=== PATIENT | male | born 1925 | race Caucasian/White ===

== ENCOUNTER 2016-09-30 09:58 | Inpatient (IN) | payer MEDICARE, OTHER ==
[2016-09-30] VITALS (18 sets, daily range): BP systolic 151–187; BP diastolic 67–123; PULSE 60–82; RESP 16–30; TEMP 98.4–98.8; O2SAT 93–100
[~2016-09-30] VITALS: Ht 182.9 cm; Wt 69.2 kg
[~2016-09-30 09:58] MED LIST: ASPI325T PO
[2016-09-30] MEDS ORDERED: CEFEPIME INJ 2,000 MG in SODIUM CHLORIDE 0.9% INJ 100 ML IV STA (10:16)
[2016-09-30] MEDS ORDERED: AZITHROMYCIN INJ 500 MG in SODIUM CHLOR 0.9% 250 ML INJ 250 ML IV STA (10:16)
--- NOTE | 2016-09-30 10:25 | PD ---
HPI Chief Complaint: General Weakness Time Seen by Provider: 10:16 Travel History International Travel<30 days: No Contact w/Intl Traveler<30days: No Traveled to known affect area: No History of Present Illness HPI 89-year-old male patient presents to the ER from home brought in by EMS, according to the family patient has been lethargic for 2-3 days, not urinating well, and family thinks he has subjective fevers. On evaluation, patient is not able to tell us why he is here. However, he admits to feeling weak and not well. Modifying Factors: None Associated Signs & Symptoms: General weakness, lethargy, fevers, not urinating well Risk Factors: Elderly PFSH Past Medical History Cancer: Yes (hx of prostate cancer) Diabetes: No Hepatitis: No Hiatal Hernia: No Hypertension: Yes Thyroid Disease: No Past Surgical History Eye Surgery: Yes (right eye cataract surgery) Pacemaker: No Other Surgery: Yes (BACK ) Social History Alcohol Use: No Tobacco Use: No Substance Use: No Allergies-Medications (Allergen,Severity, Reaction): Coded Allergies: No Known Allergies (Verified , 12/27/08) Reported Meds & Prescriptions Reported Meds & Active Scripts Active Reported Aspirin 325 Mg Tab (Aspirin) 325 Mg Tab 325 Mg PO EVERY OTHER DAY Review of Systems ROS Limitations: Altered Mental Status (lethargic, not reliable historian), Poor Historian Physical Exam Narrative GENERAL: Well-developed elderly white male patient who appears in mild respiratory distress, awake, but lethargic and mildly disoriented. Very hard of hearing. SKIN: Focused skin assessment warm/dry. HEAD: Atraumatic. Normocephalic. EYES: Pupils equal and round. No scleral icterus. No injection or drainage. ENT: No nasal bleeding or discharge. Mucous membranes pink and moist. NECK: Trachea midline. No JVD. CARDIOVASCULAR: Regular rate and rhythm. No murmur appreciated. RESPIRATORY: Notable accessory muscle use. With coarse breath sounds throughout bilaterally. GASTROINTESTINAL: Abdomen soft, non-tender, nondistended. Hepatic and splenic margins not palpable. MUSCULOSKELETAL: No obvious deformities. No clubbing. No cyanosis. No edema. NEUROLOGICAL: Awake and alert. No obvious cranial nerve deficits. Motor grossly within normal limits. Normal speech. PSYCHIATRIC: Lethargic, awake, mildly disoriented. Data Data Last Documented VS Vital Signs Date Time Temp Pulse Resp B/P Pulse Ox O2 Delivery O2 Flow Rate FiO2 09/30/16 11:00 94 Nasal Cannula 2 09/30/16 10:11 98.4 81 24 187/80 Orders Complete Blood Count With Diff (09/30/16 10:16) Comprehensive Metabolic Panel (09/30/16 10:16) Lactic Acid Sepsis Protocol (09/30/16 10:16) Magnesium (Mg) (09/30/16 10:16) Ckmb (Isoenzyme) Profile (09/30/16 10:16) Troponin I (09/30/16 10:16) Urinalysis - C+S If Indicated (09/30/16 10:16) Influenzae A/B Antigen (09/30/16 10:16) Blood Culture (09/30/16 10:16) Chest, Single Ap (09/30/16 10:16) Blood Glucose (09/30/16 10:16) Ecg Monitoring (09/30/16 10:16) Iv Access Insert/Monitor (09/30/16 10:16) Oximetry (09/30/16 10:16) Oxygen Administration (09/30/16 10:16) Cefepime Inj (Maxipime Inj) (09/30/16 10:16) Azithromycin Inj (Zithromax Inj) (09/30/16 10:16) B-Type Natriuretic Peptide (09/30/16 10:16) Cath For Specimen (09/30/16 10:16) Ct Brain W/O Iv Contrast(Rout) (09/30/16 10:25) Urine Culture (09/30/16 10:40) CKMB (09/30/16 10:20) CKMB% (09/30/16 10:20) Resp Bipap / Cpap Non Invas Vt (09/30/16 ) Furosemide Inj (Lasix Inj) (09/30/16 12:00) Admit Order (Ed Use Only) (09/30/16 12:01) Labs Laboratory Tests Test 09/30/16 09/30/16 10:20 10:40 White Blood Count 9.4 TH/MM3 Red Blood Count 3.01 MIL/MM3 Hemoglobin 10.3 GM/DL Hematocrit 30.1 % Mean Corpuscular Volume 100.0 FL Mean Corpuscular Hemoglobin 34.3 PG Mean Corpuscular Hemoglobin 34.3 % Concent Red Cell Distribution Width 14.6 % Platelet Count 107 TH/MM3 Mean Platelet Volume 9.9 FL Neutrophils (%) (Auto) 93.7 % Lymphocytes (%) (Auto) 1.8 % Monocytes (%) (Auto) 3.8 % Eosinophils (%) (Auto) 0.0 % Basophils (%) (Auto) 0.7 % Neutrophils # (Auto) 8.8 TH/MM3 Lymphocytes # (Auto) 0.2 TH/MM3 Monocytes # (Auto) 0.4 TH/MM3 Eosinophils # (Auto) 0.0 TH/MM3 Basophils # (Auto) 0.1 TH/MM3 CBC Comment DIFF FINAL Differential Comment Sodium Level 145 MEQ/L Potassium Level 4.6 MEQ/L Chloride Level 111 MEQ/L Carbon Dioxide Level 21.3 MEQ/L Anion Gap 13 MEQ/L Blood Urea Nitrogen 38 MG/DL Creatinine 1.82 MG/DL Estimat Glomerular Filtration 35 ML/MIN Rate Random Glucose 166 MG/DL Lactic Acid Level 4.0 mmol/L Calcium Level 8.2 MG/DL Magnesium Level 2.2 MG/DL Total Bilirubin 0.8 MG/DL Aspartate Amino Transf 42 U/L (AST/SGOT) Alanine Aminotransferase 32 U/L (ALT/SGPT) Alkaline Phosphatase 105 U/L Total Creatine Kinase 170 U/L Creatine Kinase MB 2.5 NG/ML Troponin I 0.70 NG/ML B-Type Natriuretic Peptide 2718 PG/ML Total Protein 6.9 GM/DL Albumin 3.0 GM/DL Urine Color YELLOW Urine Turbidity CLEAR Urine pH 6.0 Urine Specific [place] 1.020 Urine Protein 100 mg/dL Urine Glucose (UA) NEG mg/dL Urine Ketones NEG mg/dL Urine Occult Blood SMALL Urine Nitrite NEG Urine Bilirubin NEG Urine Urobilinogen LESS THAN 2.0 MG/DL Urine Leukocyte Esterase NEG Urine RBC 4 /hpf Urine WBC 1 /hpf Urine Squamous Epithelial <1 /hpf Cells Urine Bacteria RARE /hpf Urine Mucus FEW /lpf Microscopic Urinalysis Comment CATH-CULTURE IND MDM Medical Decision Making Medical Screen Exam Complete: Yes Emergency Medical Condition: Yes Medical Record Reviewed: Yes Interpretation(s) Laboratory Tests Test 09/30/16 09/30/16 10:20 10:40 Red Blood Count 3.01 MIL/MM3 (4.50-5.90) Hemoglobin 10.3 GM/DL (13.0-17.0) Hematocrit 30.1 % (39.0-51.0) Mean Corpuscular Hemoglobin 34.3 PG (27.0-34.0) Platelet Count 107 TH/MM3 (150-450) Neutrophils (%) (Auto) 93.7 % (16.0-70.0) Lymphocytes (%) (Auto) 1.8 % (9.0-44.0) Neutrophils # (Auto) 8.8 TH/MM3 (1.8-7.7) Lymphocytes # (Auto) 0.2 TH/MM3 (1.0-4.8) Chloride Level 111 MEQ/L (98-107) Blood Urea Nitrogen 38 MG/DL (7-18) Creatinine 1.82 MG/DL (0.60-1.30) Estimat Glomerular Filtration 35 ML/MIN (>89) Rate Random Glucose 166 MG/DL (74-106) Lactic Acid Level 4.0 mmol/L (0.4-2.0) Calcium Level 8.2 MG/DL (8.5-10.1) Aspartate Amino Transf 42 U/L (15-37) (AST/SGOT) Troponin I 0.70 NG/ML (0.02-0.05) B-Type Natriuretic Peptide 2718 PG/ML (0-100) Albumin 3.0 GM/DL (3.4-5.0) Urine Protein 100 mg/dL (NEG-TRACE) Urine Occult Blood SMALL (NEG) Urine RBC 4 /hpf (0-3) Urine Bacteria RARE /hpf (NONE) Urine Mucus FEW /lpf (OCC) Last [address] 09/30/16 1025 Signed Impressions: Service Date/Time: Friday, September 30, 2016 10:55 - CONCLUSION: Ventriculomegaly which may represent central volume loss however mild hydrocephalus cannot be excluded. Focal hypodensity within the left side of the jacklyn which may represent a small infarct. No other evidence of acute infarct, hemorrhage, mass or edema. Doroteo Pacheco MD Chest X-Ray 09/30/16 1016 Signed Impressions: Service Date/Time: Friday, September 30, 2016 10:23 - CONCLUSION: Cardiomegaly. Fullness of the central bronchopulmonary markings suggesting either pulmonary venous hypertension or bilateral perihilar infiltrates. Wilbur Ridley MD Differential Diagnosis Lethargic, general weakness, fevers, mild respiratory distresspneumonia versus CHF versus ACS versus dehydration versus electrolyte abnormalities versus sepsis Narrative Course Patient is a poor historian and fairly hard of hearing, history is also per family. Chest x-ray shows bilateral infiltrates concerning for underlying pulmonary edema versus pneumonia. Patient was initiated on IV antibiotics as precaution. His BNP is fairly elevated. Lasix was also given. IV fluids was held back secondary to patient's fairly elevated blood pressure and possible underlying pulmonary edema. Cultures have been done. His CAT scan of the brain shows atrophy and questionable small Jacklyn infarct. At this point, patient will need further evaluation and treatment. Case was discussed with [facility] resident service for admission to ICU for further treatment. BiPAP was also initiated due to notable respiratory distress. Will need to reevaluate for any further need of therapy. Patient's cardiac enzymes also returns elevated. No EKG ST elevation changes has been found. At this point, cardiac and 70 to be followed. I suspect underlying CHF as cause of elevations. Director Of Market Intelligence and Cardiology will also need to be a consult on this case. Case was discussed with Dr. Degroot who states that she would like a 2-D echo for further evaluation. Aggregate critical care time was 30 minutes. Time to perform other separately billable procedures was not included in the critical care time. My time did not include minutes spent treating any other patients simultaneously or on activities that did not directly contribute to the patient's treatment. The services I provided to this patient were to treat and/or prevent clinically significant deterioration that could result in: Worsening respiratory distress, worsening CHF, dysrhythmia, cardiopulmonary arrest, worsening sepsis, I provided critical care services requiring my management, as noted below: Chart data review, documentation time, medication orders and management, vital sign assessments/reviewing monitor data, ordering and reviewing lab tests, ordering and interpreting/reviewing x-rays and diagnostic studies, care of the patient and discussion of the patient with the admitting physicians. Sepsis Criteria Septic Shock Criteria: Lactic acid >=4 Diagnosis Primary Impression: SEVERE SEPSIS WITHOUT SEPTIC SHOCK Additional Impressions: CHF (congestive heart failure) Elevated troponin Admitting Information Admitting Physician Requests: Admit Stoney Watts MD Sep 30, 2016 10:25
--- NOTE | 2016-09-30 10:57 | RADRPT ---
EXAM DATE/TIME: 09/30/2016 10:23 [facility] COMPARISON: No previous studies available for comparison. INDICATIONS : Short of breath, congested. MEDICAL HISTORY : None. SURGICAL HISTORY : None. ENCOUNTER: Initial ACUITY: 1 day PAIN SCORE: Non-responsive. LOCATION: Bilateral chest FINDINGS: There is mild motion degradation of the image. There is indistinctness and fullness in the perihilar region and infrahilar region suggesting non-consolidative infiltrates. The heart is mildly enlarged . Both hemidiaphragms are well delineated. CONCLUSION: Cardiomegaly. Fullness of the central bronchopulmonary markings suggesting either pulmonary venous h ypertension or bilateral perihilar infiltrates. Wilbur Ridley MD on September 30, 2016 at 10:55 Board Certified Radiologist. This report was verified electronically.
[2016-09-30 11:05] LABS: AUTOMATED NEUTROPHIL # 8.8 TH/MM3 (1.8-7.7); BASOPHIL # 0.1 TH/MM3 (0-0.2); BASOPHIL % 0.7 % (0.0-2.0); HEMATOCRIT 30.1 % (39.0-51.0); HEMO FLAGS DIFF FINAL; LYMPH % 1.8 % (9.0-44.0); LYMPHOCYTE # 0.2 TH/MM3 (1.0-4.8); MEAN CORPUSCULAR HEMOGLOBIN 34.3 PG (27.0-34.0); MEAN CORPUSCULAR HGB CONC 34.3 % (32.0-36.0); MONO % 3.8 % (0.0-8.0); NEUT % 93.7 % (16.0-70.0); PLATELET COUNT 107 TH/MM3 (150-450); RED BLOOD COUNT 3.01 MIL/MM3 (4.50-5.90); RED CELL DISTRIBUTION WIDTH 14.6 % (11.6-17.2); WHITE BLOOD COUNT 9.4 TH/MM3 (4.0-11.0)
[2016-09-30 11:12] LABS: BACTERIA, URINE RARE /hpf; BLOOD, URINE SMALL (NEG); GLUCOSE,URINE NEG (NEG); KETONE, URINE NEG (NEG); MUCUS URINE FEW /lpf (OCC); NITRITE,URINE NEG (NEG); SQUAMOUS EPITHELIAL CELL URINE <1 /hpf (0-5); URINE COLOR YELLOW (YELLW/STRAW)
[2016-09-30 11:18] LABS: COMMENT (UR) CATH-CULTURE IND; CULTURE IF INDICATED CATH CULTURE IND
[2016-09-30 11:22] LABS: ANION GAP 13 MEQ/L (5-15); AST (GOT) 42 U/L (15-37); BICARBONATE 21.3 MEQ/L (21.0-32.0); BLOOD UREA NITROGEN 38 MG/DL (7-18); CHLORIDE 111 MEQ/L (98-107); GLOMERULAR FILTRATION RATE 35 ML/MIN (>89); MAGNESIUM 2.2 MG/DL (1.5-2.5); POTASSIUM 4.6 MEQ/L (3.5-5.1); SODIUM (NA) 145 MEQ/L (136-145)
[2016-09-30 11:27] LABS: ALKALINE PHOSPHATASE 105 U/L (45-117); ALT (GPT) 32 U/L (12-78); CREATINE KINASE 170 U/L (39-308); TOTAL BILIRUBIN ADULT 0.8 MG/DL (0.2-1.0)
--- NOTE | 2016-09-30 11:29 | RADRPT ---
EXAM DATE/TIME: 09/30/2016 10:55 [facility] COMPARISON: No previous studies available for comparison. INDICATIONS : Altered mental status. RADIATION DOSE: 42.65 CTDIvol (mGy) MEDICAL HISTORY : Carcinoma, prostate. SURGICAL HISTORY : ENCOUNTER: Initial ACUITY: 1 day PAIN SCALE: 1/10 LOCATION: TECHNIQUE: Multiple contiguous axial images were obtained of the head. Using automated exposure control and adjustment of the mA and/or kV according to patient size, radiation dose was kept as low as reasonably achievable to obtain optimal diagnostic quality images. FINDINGS: CEREBRUM: The ventricles are enlarged. No evidence of midline shift, mass lesion, hemorrhage or acute infarction. No extra-axial fluid collections are seen. POSTERIOR FOSSA: Mild hypodensity is identified within the left side of the jacklyn. The cerebellum and brainstem are otherwise unremarkable.. The 4th ventricle is midline. The cerebellopontine angle is unremarkable. EXTRACRANIAL: The visualized portion of the orbits is intact. SKULL: The calvaria is intact. No evidence of skull fracture. CONCLUSION: Ventriculomegaly which may represent central volume loss however mild hydrocephalus c annot be excluded. Focal hypodensity within the left side of the jacklyn which may represent a small infarct. No other evidence of acute infarct, hemorrhage, mass or edema. Doroteo Pacheco MD on September 30, 2016 at 11:24 Board Certified Radiologist. This report was verified electronically.
[2016-09-30 11:42] LABS: CKMB 2.5 NG/ML (0.5-3.6)
[2016-09-30] MEDS ORDERED: FUROSEMIDE 20 MG/2 ML VIAL IV PUSH ONE ×2 (12:00→14:00)
--- NOTE | 2016-09-30 12:49 | HHI.HP ---
[facility] Service Family Medicine Primary Care Physician Mendel Squires MD, PhD Admission Diagnosis severe sepsis/CHF new onset Diagnoses: International Travel<30 Days: No Contact w/Intl Traveler<30days: No Known Affected Area: No History of Present Illness 89 year old healthy male, with PMH of hypertension, presents with new onset lower extremity edema, dyspnea, generalized weakness, fevers, and altered mental status. His family (two daughters and son in law) provided most of the history. Symptoms started on Thursday. Initially he improved, but overnight he acutely worsened. He was having labored breathing. Normally he bikes 2 miles a day, but today was hardly able to stand up. Per the family, he was also confused. He is currently oriented X3 and answering questions appropriately. He also has fevers, with 102.5 being the highest. Currently he is afebrile. He is on BIPAP currently and per the family is about 25% better than at admission. He has no chest pain. He had 3 episodes of diarrhea overnight. (Channing Rosenberg MD R2) Review of Systems Constitutional: COMPLAINS OF: Fever, Chills, DENIES: Diaphoretic episodes, Fatigue, Weight gain, Weight loss, Change in appetite Endocrine: DENIES: Polydipsia, Polyuria, Polyphagia Eyes: DENIES: Eye inflammation, Double Vision Ears, nose, mouth, throat: DENIES: Throat pain, Running Nose, Odynophagia Respiratory: COMPLAINS OF: Cough, Shortness of breath, DENIES: Wheezing, Sputum production Cardiovascular: COMPLAINS OF: Dyspnea on Exertion, Lower Extremity Edema, Orthopnea, DENIES: Chest pain, Palpitations Gastrointestinal: DENIES: Abdominal pain, Bloody stools, Diarrhea, Nausea, Vomiting, Difficulty Swallowing Genitourinary: DENIES: Urgency, Hematuria, Dysuria Musculoskeletal: DENIES: Neck pain Integumentary: DENIES: Rash Hematologic/lymphatic: DENIES: Lymphadenopathy Immunologic/allergic: DENIES: Eczema Neurologic: DENIES: Headache, Localized weakness, Seizures, Speech Problems, Poor Balance Psychiatric: COMPLAINS OF: Confusion, DENIES: Anxiety, Depression (Channing Rosenberg MD R2) Past Family Social History Past Medical History Hypertension Healthy at baseline Dr. Squires is PCP Gets vitamin B12 shots Prostate cancer, in complete remission for 20 years Past Surgical History Prostate surgery: 20 years ago Hernia surgery 2 years ago Reported Medications Reported Meds & Active Scripts Active Reported Aspirin 81 mg daily (Channing Rosenberg MD R2) Allergies: Coded Allergies: No Known Allergies (Verified , 12/27/08) Family History Mother and father: uncertain No major illnesses reported Social History Quit smoking in his 50's, smoked for 30 years Alcohol use: none Drug use: none Independent, lives alone, very healthy Significant other in a skilled nursing Daughters and son and law help to take care of him (Channing Rosenberg MD R2) Physical Exam Vital Signs Vital Signs Date Time Temp Pulse Resp B/P Pulse Ox O2 Delivery O2 Flow Rate FiO2 09/30/16 12:20 98.8 79 26 156/123 94 BiPAP 09/30/16 11:00 94 Nasal Cannula 2 09/30/16 10:40 94 Nasal Cannula 2 09/30/16 10:40 94 Nasal Cannula 2 09/30/16 10:11 98.4 81 24 187/80 93 Physical Exam GENERAL: Sitting up in bed, on BIPAP, no acute distress SKIN: No rashes, no ulcers HEENT: Normocephalic, no nasal drainage, no pharyngeal erythema NECK: Trachea midline. No JVD or lymphadenopathy. Supple, nontender, no meningeal signs. CARDIOVASCULAR: Regular rate and rhythm without murmurs, gallops, or rubs. Pulses normal. JVD present. RESPIRATORY: Coarse breath sounds especially in lower lungs bilaterally. On BIPAP. 94% O2 saturation. GASTROINTESTINAL: Abdomen soft, non-tender, nondistended. No hepato-splenomegaly , or palpable masses. MUSCULOSKELETAL: Extremities without clubbing, cyanosis, or edema. No joint tenderness, effusion, or edema noted. No calf tenderness. NEUROLOGICAL: Awake and alert. Cranial nerves II through XII intact. Motor and sensory grossly within normal limits. Five out of 5 muscle strength in all muscle groups. Normal speech. Laboratory Laboratory Tests Test 09/30/16 09/30/16 10:20 10:40 White Blood Count 9.4 Red Blood Count 3.01 Hemoglobin 10.3 Hematocrit 30.1 Mean Corpuscular Volume 100.0 Mean Corpuscular Hemoglobin 34.3 Mean Corpuscular Hemoglobin 34.3 Concent Red Cell Distribution Width 14.6 Platelet Count 107 Mean Platelet Volume 9.9 Neutrophils (%) (Auto) 93.7 Lymphocytes (%) (Auto) 1.8 Monocytes (%) (Auto) 3.8 Eosinophils (%) (Auto) 0.0 Basophils (%) (Auto) 0.7 Neutrophils # (Auto) 8.8 Lymphocytes # (Auto) 0.2 Monocytes # (Auto) 0.4 Eosinophils # (Auto) 0.0 Basophils # (Auto) 0.1 CBC Comment DIFF FINAL Differential Comment Sodium Level 145 Potassium Level 4.6 Chloride Level 111 Carbon Dioxide Level 21.3 Anion Gap 13 Blood Urea Nitrogen 38 Creatinine 1.82 Estimat Glomerular Filtration 35 Rate Random Glucose 166 Lactic Acid Level 4.0 Calcium Level 8.2 Magnesium Level 2.2 Total Bilirubin 0.8 Aspartate Amino Transf 42 (AST/SGOT) Alanine Aminotransferase 32 (ALT/SGPT) Alkaline Phosphatase 105 Total Creatine Kinase 170 Creatine Kinase MB 2.5 Troponin I 0.70 B-Type Natriuretic Peptide 2718 Total Protein 6.9 Albumin 3.0 Urine Color YELLOW Urine Turbidity CLEAR Urine pH 6.0 Urine Specific [place] 1.020 Urine Protein 100 Urine Glucose (UA) NEG Urine Ketones NEG Urine Occult Blood SMALL Urine Nitrite NEG Urine Bilirubin NEG Urine Urobilinogen LESS THAN 2.0 Urine Leukocyte Esterase NEG Urine RBC 4 Urine WBC 1 Urine Squamous Epithelial <1 Cells Urine Bacteria RARE Urine Mucus FEW Microscopic Urinalysis Comment CATH-CULTURE IND Date/Time Procedure Status Source Growth 09/30/16 10:40 Urine Culture Received Urine Catheterized Urine Pending 09/30/16 10:25 Influenza Types A,B Antigen ([place]) - Final Complete Nasal Washing NEGATIVE FOR FLU A AND B ANTIGEN.... 09/30/16 10:25 Aerobic Blood Culture Received Blood Peripheral Pending 09/30/16 10:25 Anaerobic Blood Culture Received Blood Peripheral Pending (Channing Rosenberg MD R2) Result Diagram: 09/30/16 1020 09/30/16 1020 Imaging Last [address] 09/30/16 1025 Signed Impressions: Service Date/Time: Friday, September 30, 2016 10:55 - CONCLUSION: Ventriculomegaly which may represent central volume loss however mild hydrocephalus cannot be excluded. Focal hypodensity within the left side of the jacklyn which may represent a small infarct. No other evidence of acute infarct, hemorrhage, mass or edema. Doroteo Pacheco MD Chest X-Ray 09/30/16 1016 Signed Impressions: Service Date/Time: Friday, September 30, 2016 10:23 - CONCLUSION: Cardiomegaly. Fullness of the central bronchopulmonary markings suggesting either pulmonary venous hypertension or bilateral perihilar infiltrates. Wilbur Ridley MD (Channing Rosenberg MD R2) Septic Shock Reassessment Heart: Regular rate and rhythm Lungs: Course Skin: Warm Capillary Refill: <2 seconds (Channing Rosenberg MD R2) Assessment and Plan Assessment and Plan 89 year old with shortness of breath, lower extremity edema, generalized weakness, and altered mental status. Code Status FULL CODE Discussed Condition With Discussed with Dr. Odonnell, Dr. Mirlande Piedra, will discuss with light industrial supervisor ( Channing Rosenberg MD R2) Attending Attestation Patient seen and examined. Case reviewed and discussed with the resident team. Agree with plan of care as discussed with me and documented in the resident note. (Deena Calvo MD) Problem List: (1) Dyspnea Status: Resolved Plan: New onset dyspnea is this otherwise healthy elderly male. Also with lower extremity edema that is new in onset. DDx is wide, including pneumonia, PE , acute CHF, myocardial infarction, COPD. BNP significantly elevated to 2718. Initial troponin 0.7. X-ray showing cardiomegaly, pulmonary congestion/edema. No history of CHF, so the question is why he is in acute heart failure now. Wells criteria is 3, low risk for PE. Initial lactic acid elevated to 4.0, decreasing on BIPAP. White count normal, neutrophils elevated. Fever 102.5 at home, normal here. - Because of the complications with balancing fluid load in a patient with sepsis and acute fluid overload, we will consult critical care and place him in the ICU for closer monitoring. - Will need strict I's and O's and daily weights. - Will get a stat CTA to rule out a pulmonary embolus. - Trend troponin levels and EKG's. - DuoNeb treatments, continue if they are beneficial. - Lasix PRN for fluid overload, will start 40 mg IV bid. - Telemetry for heart monitoring - Aspirin, atorvastatin - Beta thanh, spironolactone if indicated before discharge - Cardiology on board for acute CHF - Will get ECHO for further evaluation. - Get ABG now. (2) Lower extremity edema Status: Acute Plan: See plan for dyspnea above (3) Pneumonia Status: Acute Plan: Possible pneumonia on x-ray, having fevers, neutrophilia. 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 - MRI when stable (5) Nutrition, metabolism, and development symptoms Status: Acute Plan: - Strict I's and O's - Gentle hydration balanced with diuresis in this patient with sepsis and acute CHF - Monitor electrolytes with fluid overload and diuresis - Diet NPO until speech evaluates due to questionable hypodensity on CT scan (6) No contraindication to deep vein thrombosis (DVT) prophylaxis Status: Acute Plan: Heparin for prophylaxis, will discuss with light industrial supervisor and network program manager whether we need heparin drip Bilateral SCD's (Channing Rosenberg MD R2) Physician Certification 2 Midnight Certification Type: Admission for Inpatient Services Order for Inpatient Services The services are ordered in accordance with Medicare regulations or non- Medicare payer requirements, as applicable. In the case of services not specified as inpatient-only, they are appropriately provided as inpatient services in accordance with the 2-midnight benchmark. Estimated LOS (days): 3 days is the estimated time the patient will need to remain in the hospital, assuming treatment plan goals are met and no additional complications. Post-Hospital Plan: Not yet determined (Channing Rosenberg MD R2) Problem Qualifiers (1) Dyspnea: Qualified Code: R06.02 - Shortness of breath (2) Lower extremity edema: Qualified Code: R60.0 - Bilateral edema of lower extremity (3) Pneumonia: Qualified Code: J18.1 - Pneumonia of lower lobe due to infectious organism, unspecified laterality Channing Rosenberg MD R2 Sep 30, 2016 12:49 Deena Calvo MD Oct 03, 2016 12:41
[2016-09-30 12:51] LABS: LACTIC ACID GHOST NOT REPORTABLE
[2016-09-30] MEDS ORDERED: SODIUM CHLORIDE 0.9% FLUSH 10 ML FLUSH IV FLUSH PRN (13:15)
[2016-09-30] MEDS ORDERED: NALOXONE HCL 0.4 MG/ML AMP IV PRN (13:15)
[2016-09-30] MEDS ORDERED: HEPARIN SODIUM - SQ 10,000 UNITS/ML VIAL SQ SCH (14:00)
[2016-09-30 14:21] LABS: BLOOD GAS BASE EXCESS -4.7 mmol/L (-2-2); BLOOD GAS CARBOXYHEMOGLOBIN 0.9 % (0-4); BLOOD GAS HCO3 19 mmol/L (22-26); BLOOD GAS METHEMOGLOBIN 0.5 % (0-2); BLOOD GAS O2 HGB SATURATION 98 % (90-100); BLOOD GAS OXYGEN CONTENT 13.6 Vol % (12.0-20.0); BLOOD GAS PCO2 27 mmHg (38-42); BLOOD GAS PO2 134 mmHG (61-120); BLOOD GAS TOTAL HGB 9.7 G/DL (12.0-16.0); CRITICAL VALUE NO; TEMP CORR TO 98.6
[2016-09-30 14:22] LABS: DRAW SITE RT RADIAL; FIO2 40 %; NUMBER OF ARTERIAL PUNCTURES 1; OXYGEN DEVICE BIPAP; STAT YES; VENT SETTINGS IPAP10/EPAP5
[2016-09-30] MEDS ORDERED: DEXTROSE 50% IN WATER 50 ML VIAL(D50) IV PUSH PRN (14:45)
[2016-09-30] MEDS ORDERED: RESP: ALBUTEROL 2.5 MG/IPRATROPIUM 0.5 MG NEB (PRN) NEB (14:45)
[2016-09-30] MEDS ORDERED: GLUCAGON 1 MG/ML VIAL OTHER PRN (14:45)
--- NOTE | 2016-09-30 14:51 | EC ---
Study Study Date:09/30/2016 STUDY CONCLUSIONS SUMMARY - Left ventricle: The cavity size was normal. Wall thickness was increased in a pattern of moderate LVH. Systolic function was severely reduced. The estimated ejection fraction was in the range of 25% to 30%. Diffuse hypokinesis. - Aortic valve: Valve area: 1.31cm^2(VTI). Valve area: 1.39cm^2 (Vmax). - Mitral valve: Mild to moderate regurgitation. - Left atrium: The atrium was mildly dilated. - Right ventricle: The cavity size was mildly to moderately dilated. Wall thickness was normal. - Right atrium: The atrium was moderately dilated. - Tricuspid valve: Mild-moderate regurgitation. - Pulmonary arteries: Systolic pressure was moderately increased. PA peak pressure: 41mm Hg (S). If LV function is below 40, please consider prescribing an ACEI or ARB or document rationale for non-use. PROCEDURE DATA STUDY STATUS: Elective. Procedure: Transthoracic echocardiography. Image quality was good. Scanning was performed from the parasternal, apical, and subcostal acoustic windows. Study completion: The patient tolerated the procedure well. Transthoracic echocardiography. M-mode, complete 2D, complete spectral Doppler, and color Doppler. Patient status: Inpatient. CARDIAC ANATOMY LEFT VENTRICLE: The cavity size was normal. Wall thickness was increased in a pattern of moderate LVH. Systolic function was severely reduced. The estimated ejection fraction was in the range of 25% to 30%. Diffuse hypokinesis. AORTIC VALVE: Trileaflet; normal thickness leaflets. Doppler: Transvalvular velocity was within the normal range. There was no stenosis. No regurgitation. Valve area: 1.31cm^2(VTI). Valve area: 1.39cm^2 (Vmax). Mean gradient: 9mm Hg (S). Peak gradient: 16mm Hg (S). AORTA: Aortic root: The aortic root was normal in size. MITRAL VALVE: Structurally normal valve. Doppler: Transvalvular velocity was within the normal range. There was no evidence for stenosis. Mild to moderate regurgitation. LEFT ATRIUM: The atrium was mildly dilated. RIGHT VENTRICLE: The cavity size was mildly to moderately dilated. Wall thickness was normal. PULMONIC VALVE: Doppler: Transvalvular velocity was within the normal range. There was no evidence for stenosis. No regurgitation. TRICUSPID VALVE: Structurally normal valve. Doppler: Transvalvular velocity was within the normal range. Mild-moderate regurgitation. PULMONARY ARTERY: The main pulmonary artery was normal-sized. Systolic pressure was moderately increased. RIGHT ATRIUM: The atrium was moderately dilated. PERICARDIUM: There was no pericardial effusion. SYSTEMIC VEINS: Inferior vena cava: The vessel was normal in size. BASIC MEASUREMENTS ADULT Normal Left ventricle LV internal dimension, ED, chordal level, 49.2 mm 43-52 PLAX LV internal dimension, ES, chordal level, *43.5 mm 23-38 PLAX Fractional shortening, chordal level, PLAX *12 % >29 LV posterior wall thickness, ED 13.4 mm IVS/LVPW ratio, ED 1.06 <1.3 Ventricular septum Septal thickness, ED 14.2 mm Aortic valve Leaflet separation 20 mm 15-26 Right ventricle RV internal dimension, ED, PLAX 28.5 mm 19-38 BASIC MEASUREMENTS ADULT Normal Aortic valve Leaflet separation 20 mm 15-26 Aorta Root diameter, ED 37 mm 20-37 Left atrium Anterior-posterior dimension, ES *49 mm 19-40 LA/aortic root ratio 1.32 DOPPLER MEASUREMENTS ADULT Normal Main pulmonary artery Pressure, S *41 mm Hg =30 Aortic valve Peak velocity, S 202 cm/s Mean velocity, S 140 cm/s VTI, S 39.1 cm Mean gradient, S 9 mm Hg Peak gradient, S 16 mm Hg Valve area, VTI 1.31 cm^2 Valve area, Vmax 1.39 cm^2 Tricuspid valve Regurgitant peak velocity 277 cm/s Peak RV-RA gradient, S 31 mm Hg Systemic veins Estimated CVP 10 mm Hg Right ventricle RV pressure, S *41 mm Hg <30 LEGEND: Mean values are shown as u=mean value. Asterisk (*) jansen values outside specified normal range. Prepared and signed by Floresita Degroot [id number]
[2016-09-30] MEDS: RESP: ALBUTEROL 2.5 MG/IPRATROPIUM 0.5 MG NEB (SCH) NEB ×3 (15:45→22:38)
[2016-09-30] MEDS: INSULIN NovoLIN REGULAR SUPPLEMENTAL SCALE SQ SCH ×2 (16:06→21:00)
--- NOTE | 2016-09-30 16:58 | RADRPT ---
EXAM DATE/TIME: 09/30/2016 16:23 This report includes an Addendum and supersedes previous reports for this exam. [facility] COMPARISON: CT BRAIN W/O CONTRAST, September 30, 2016, 10:55. INDICATIONS : CVA. Weakness. MEDICAL HISTORY : Carcinoma, prostate. SURGICAL HISTORY : Umbilical hernia repair. ENCOUNTER: Subsequent ACUITY: 1 day PAIN SCORE: 0/10 LOCATION: head. TECHNIQUE: Multiplanar, multisequence MRI of the brain was performed without contrast. FINDINGS: CEREBRUM: The ventricles, sulci, and basal cisterns are prominent, characteristic of mild central cortical atro phy.. No evidence of midline shift, mass lesion, hemorrhage or acute infarction. No extraaxial flui d collections are seen. The pituitary gland and suprasellar cistern are normal in configuration. WHITE MATTER: Scattered areas of T2 prolongation in the supratentorial white matter is nonspecific, probably ischem ic. POSTERIOR FOSSA: The cerebellum and brainstem are intact. The 4th ventricle is midline. Special attention is directe d to the left jacklyn; no focal signal abnormality seen. The cerebellopontine angle is unremarkable. T he cerebellar tonsils are normal in position. DIFFUSION IMAGING: No focal areas of restricted diffusion are seen. No evidence of acute infarction. EXTRACRANIAL: The visualized portions of the orbits and paranasal sinuses are unremarkable. CONCLUSION: 1. Mild central and cortical ischemic atrophy with associated white matter signal change. 2. Evidence of acute stroke. 3. No focal signal abnormality seen in the jacklyn. Wilbur Ridley MD on September 30, 2016 at 16:53 Board Certified Radiologist. This report was verified electronically. ADDENDUM: In the impression or conclusion above #2 should state that there is no evidence for acute infarction. Finding discussed with Dr. Odonnell. Daryn Thomas MD on September 30, 2016 at 19:40 Board Certified Radiologist. This report was verified electronically.
[2016-09-30] MEDS: FUROSEMIDE 40 MG/4 ML VIAL IV PUSH SCH (18:03)
--- NOTE | 2016-09-30 18:37 | MB ---
cc: SINGH CORBETT M.D. DATE OF CONSULTATION: 09/30/2016 REASON FOR CONSULTATION: DATE OF : 1925 HISTORY OF PRESENT ILLNESS: The patient is an 89-year-old male with remote history of prostate cancer, hypertension, who presented to [facility] ED with a 3-day history of the edema of lower extremities, associated with shortness of breath and generalized weakness. In addition the patient had fever with temperature of 101.5 per his daughters. The patient also was confused. He denies any chest pain, nausea, vomiting or abdominal pain. On arrival to the ED he was hypertensive with blood pressure 187/80 and due to his respiratory distress, he was placed on BiPap 10/5 with 40% FIO2. ABG was performed which showed a pH of 7.45, CO2 27, pAO2 134, bicarb 19, saturation of 98%. His chest x-ray showed cardiomegaly with pulmonary vascular congestion. His laboratory data significant for elevated BNP at 2,718 and troponin of 0.70. Also he had a lactic acid of 4.0, however, on repeat it trended down to 2.5. There is no evidence of any fever or leukocytosis on arrival. Due to altered mental status, CT scan of the brain was obtained which showed possible small infarct. No other evidence of any acute infarct, hemorrhage, mass effect or edema. In the ER he was given Lasix 20 mg IV push, cefepime and azithromycin. His nasal washing is negative for influenza types A and B antigen. PAST MEDICAL HISTORY: Significant for: 1. Hypertension. 2. Remote history of prostate cancer. PAST SURGICAL HISTORY: Previous hernia surgery. Prostate surgery. ALLERGIES NO KNOWN DRUG ALLERGIES. REPORTED MEDICATIONS: 1. Aspirin 2. Vitamins. SOCIAL HISTORY: Remote history of tobacco use. Nondrinker. FAMILY HISTORY Noncontributory REVIEW OF SYSTEMS As per HPI. The rest of the review of systems is unremarkable. PHYSICAL EXAMINATION The patient is an 89 year-old male sitting up in bed on BiPAP in no acute distress, appears comfortable. VITAL SIGNS: Afebrile, temperature 98.8, pulse of 79, blood pressure 161/77, saturation 99%. HEENT: Atraumatic, normocephalic, pupils equal, round, reactive to light and accommodation. Extraocular muscles intact. Conjunctivae pink. Nonicteric sclerae. Oral mucosa within normal. Neck: Supple. No JVD, adenopathy or thyromegaly. Trachea midline. Cardiovascular: Regular rate and rhythm. Normal S1-S2. No murmurs, rubs, or gallops noted. Pulmonary: Bilateral equal air entry. Few coarse breath sounds. Abdomen: Soft, nontender, no distension. Positive bowel sounds. Extremities: No cyanosis, clubbing, trace edema. Neuro: No focal sensory deficit. LABORATORY DATA Sodium 145, potassium 4.6, chloride 111, CO2 21, BUN 38, creatinine 1.82, glucose 166, lactic acid of 4.0 initially, then trended down to 2.5, troponin 0.70, total CK 170, MB 2.5, BNP 2718, AST 42, ALT 32, total bilirubin 0.8. WBC 9.4, hemoglobin 10, hematocrit 30, platelet count 107. Urinalysis showed 1 WBC, negative leukocyte esterase, negative nitrite. RADIOLOGIC STUDIES: CT scan of the brain showed focal hyperdensity within the left side of the jacklyn which may represent small infarct. No evidence of any acute infarct, hemorrhage or mass effect. Chest x-ray shows pulmonary vascular congestion and cardiomegaly. EKG showed no ST elevation. IMPRESSION 1. Acute hypoxemic respiratory insufficiency. 2. CHF decompensation. 3. 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 4. Mild elevated troponin. 5. Acute kidney injury. 6. Lactic acidemia trending down. 7. Anemia 8. Thrombocytopenia 9. Hypertension 10. Remote history of prostate cancer. RECOMMENDATIONS Monitor neuro status closely and avoid any sedatives. CT scan of the brain reviewed. The patient is for MRI of the brain without contrast. Continue to wean down oxygen and maintain saturation above 92%. Bronchodilators in the form of DuoNeb q4 plus q2, p.r.n. for shortness of breath. Continue noninvasive positive pressure ventilation for respiratory distress. Monitor heart rate and blood pressure closely and maintain MAP greater than 65 mmHg. Serial lactic acid monitoring. Echocardiogram was performed in the ER which showed LV dysfunction with EF of 25-30% and diffuse hypokinesis. The primary team discussed the case with Dr. Degroot from cardiology. Will continue with aspirin 81 mg daily, Lipitor 80 mg n.p.o., q.h.s. and diuretics. The patient was replaced on Lasix 40 mg IV b.i.d. Monitor cardiac enzymes with troponins. Monitor renal function I&O and avoid nephrotoxins. Continue with diuretics as stated above. Electrolyte replacement if needed. Keep n.p.o. for now until respiratory status improves. Continue with empiric antibiotics in the form of Rocephin and monitor for signs of infections which include fever and WBC. Follow up on blood and urine cultures. Nasal washing for influenza type A and B antigen is negative. Place on sliding scale insulin with Accu-Chek q. 6-hour for glycemic control. No indications for GI prophylaxis and DVT prophylaxis with SCDs and heparin subcu. The case was discussed with primary team. Further recommendations will be based on hospital course. MD PAWAN Thao/ROBIN /2:53 PM /5:37 PM
[2016-09-30] MEDS ORDERED: HEPARIN SODIUM - IV 10,000 UNITS/10 ML VIAL IV ONE (19:00)
[2016-09-30] MEDS ORDERED: HEPARIN-D5W INJ 250 ML IV SCH (19:00)
[2016-09-30] MEDS: SODIUM CHLORIDE 0.9% FLUSH 10 ML FLUSH IV FLUSH SCH (19:49)
[2016-09-30 20:05] LABS: LACTIC ACID GHOST NOT REPORTABLE
--- NOTE | 2016-09-30 20:51 | MB ---
cc: ES BELTRAN DATE OF CONSULTATION 09/30/16 REASON FOR CONSULTATION Elevated troponin and possible heart failure. HISTORY OF PRESENT ILLNESS Mr. Dowell is an 89-year-old male who is a poor historian. By the record, he does have a history of hypertension, hyperlipidemia and atrial fibrillation. The patient reports he was doing fine and was out bike riding until yesterday when he had a sudden progressive shortness of breath that precipitated his emergency room visit. He denies any chest pain. He has had some lower extremity edema. PAST MEDICAL HISTORY 1. Hypertension, 2. Hyperlipidemia, 3. Paroxysmal atrial fibrillation, 4. Prostate cancer status post XRT 5. Anemia, 6. Back ache with L4 back surgery. ALLERGIES No known drug allergies. MEDICATIONS Outpatient medications Aspirin. FAMILY HISTORY Noncontributory SOCIAL HISTORY The patient is a former smoker and does live independently. REVIEW OF SYSTEMS Except as mentioned in HPI all 12 systems are negative. PHYSICAL EXAMINATION VITAL SIGNS: 98.8, 79, 26, 156/23. His initial blood pressure was 187/80. GENERAL: He is in mild respiratory distress on the mask BiPAP LUNGS: Diffuse wheezing throughout. CARDIOVASCULAR: He has a normal S1 and S2. There is 2/6 systolic murmur. No rubs or gallops appreciated. ABDOMEN: Soft. EXTREMITIES: Trace amount of edema. CARDIOLOGY STUDIES Echocardiogram does show an EF of 25-30% with mild to moderate mitral regurgitation. LABORATORY FINDINGS Hemoglobin 10.3, creatinine of 1.82 with troponin of 0.70. BNP 2718. IMPRESSION 1. Acute systolic heart failure - the patient does not have any known history of previous cardiomyopathy. It is not clear if this is secondary to tachycardia related cardiomyopathy or versus infectious versus other. At this time, he does appear to have a cardiorenal syndrome as his creatinine is also elevated above his baseline. I do agree with diuresis. Beta blockade with be reasonable. 2. Anemia - this be managed by the primary team and is chronic 3. Paroxysmal atrial fibrillation - the patient certainly has a CHADS vasc score high enough to merit anticoagulation. His anemia, however, is concerning. At this time, I would continue him on his present medications. 4. Code status - the patient does remain full code. He essentially has multisystem failure and his overall prognosis is quite guarded. Cadence Son/ /5:27 PM /8:35 PM
[2016-09-30 21:30] LABS: HEMATOCRIT 30.2 % (39.0-51.0); MEAN CELL VOLUME 100.5 FL (80.0-100.0); MEAN CORPUSCULAR HEMOGLOBIN 34.5 PG (27.0-34.0); MEAN CORPUSCULAR HGB CONC 34.4 % (32.0-36.0); PLATELET COUNT 97 TH/MM3 (150-450); RED BLOOD COUNT 3.01 MIL/MM3 (4.50-5.90); RED CELL DISTRIBUTION WIDTH 14.3 % (11.6-17.2); WHITE BLOOD COUNT 9.2 TH/MM3 (4.0-11.0)
[2016-09-30 21:33] LABS: REVIEW FLAG FINAL
[2016-09-30 21:46] LABS: INTERNATIONAL NORMALIZED RATIO 1.2 RATIO; PROTHROMBIN TIME - PATIENT 13.4 SEC (9.8-11.6)
[2016-09-30 21:54] LABS: APTT (PATIENT) 73.2 SEC (24.3-30.1)
[2016-09-30] MEDS: ATORVASTATIN 80 MG TAB PO SCH (22:25)
--- NOTE | 2016-09-30 23:12 | EKG ---
Date Performed: 09/30/2016 Time Performed: 17:20:49 PTAGE: 89 years EKG: ATRIAL FIBRILLATION RIGHT BUNDLE BRANCH BLOCK LEFT ANTERIOR FASCICULAR BLOCK POSSIBLE LEFT VENTRICULAR HYPERTROPHY POSSIBLE ANTERIOR MYOCARDIAL INFARCTION ABNORMAL ECG PREVIOUS TRACING : 09/30/2016 12.05 Compared to prior tracing no significant change DOCTOR: Sj Weller Interpretating Date/Time 09/30/2016 23:11:26
--- NOTE | 2016-09-30 23:53 | EKG ---
Date Performed: 09/30/2016 Time Performed: 12:05:56 PTAGE: 89 years EKG: ATRIAL FIBRILLATION RIGHT BUNDLE BRANCH BLOCK LEFT ANTERIOR FASCICULAR BLOCK POSSIBLE LEFT VENTRICULAR HYPERTROPHY POSSIBLE ANTERIOR MYOCARDIAL INFARCTION ABNORMAL ECG INTERPRETATION BASED ON A DEFAULT AGE OF 40 YEARS PREVIOUS TRACING : 03/11/2012 10.26 Compared to the previous tracing, RBBB is new DOCTOR: Sj Weller Interpretating Date/Time 09/30/2016 23:51:42
[2016-10-01] VITALS (14 sets, daily range): BP systolic 146–200; BP diastolic 65–84; PULSE 53–97; RESP 20–24; TEMP 97.6–98.5; O2SAT 92–99
[2016-10-01 02:39] LABS: AUTOMATED NEUTROPHIL # 7.8 TH/MM3 (1.8-7.7); BASOPHIL % 0.2 % (0.0-2.0); HEMATOCRIT 29.3 % (39.0-51.0); LYMPH % 4.1 % (9.0-44.0); LYMPHOCYTE # 0.4 TH/MM3 (1.0-4.8); MEAN CELL VOLUME 95.5 FL (80.0-100.0); MEAN CORPUSCULAR HEMOGLOBIN 31.9 PG (27.0-34.0); MEAN CORPUSCULAR HGB CONC 33.4 % (32.0-36.0); MONO % 7.8 % (0.0-8.0); NEUT % 87.9 % (16.0-70.0); PLATELET COUNT 93 TH/MM3 (150-450); RED BLOOD COUNT 3.06 MIL/MM3 (4.50-5.90); RED CELL DISTRIBUTION WIDTH 14.3 % (11.6-17.2); WHITE BLOOD COUNT 8.9 TH/MM3 (4.0-11.0)
[2016-10-01 02:50] LABS: APTT (PATIENT) 69.7 SEC (24.3-30.1)
[2016-10-01 02:51] LABS: HEMO FLAGS DIFF FINAL
[2016-10-01] MEDS: INSULIN NovoLIN REGULAR SUPPLEMENTAL SCALE SQ SCH ×2 (03:00→09:00)
[2016-10-01] MEDS ORDERED: CHLORHEXIDINE GLUCONATE 2 % 1 PACK (2 CLOTHS)(extra cloths) TOPICAL PRN (03:00)
[2016-10-01 03:32] LABS: BICARBONATE 24.2 MEQ/L (21.0-32.0); MAGNESIUM 2.3 MG/DL (1.5-2.5); POTASSIUM 3.4 MEQ/L (3.5-5.1)
[2016-10-01] MEDS: RESP: ALBUTEROL 2.5 MG/IPRATROPIUM 0.5 MG NEB (SCH) NEB ×5 (04:00→19:53)
[2016-10-01 05:30] LABS: APTT (PATIENT) 67.5 SEC (24.3-30.1)
[2016-10-01] MEDS: CHLORHEXIDINE GLUCONATE 2 % 1 PACK (2 CLOTHS)(taper/protocol) TOPICAL SCH (06:06)
--- NOTE | 2016-10-01 06:29 | RADRPT ---
EXAM DATE/TIME: 10/01/2016 04:19 [facility] COMPARISON: CHEST SINGLE AP, September 30, 2016, 10:23. INDICATIONS : Shortness of breath. MEDICAL HISTORY : Carcinoma, prostate SURGICAL HISTORY : None. ENCOUNTER: Subsequent ACUITY: 2 days PAIN SCORE: Non-responsive. LOCATION: Bilateral chest FINDINGS: A single view of the chest demonstrates continued diffuse interstitial prominence with cardiomegaly. Marked atherosclerotic disease. No focal infiltrate. Osseous structures are intact. 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 This report was verified electronically.
--- NOTE | 2016-10-01 07:42 | PD.CARD.PN ---
Subjective Subjective Remarks Pt without complaints, requests d/c Objective Medications Current Medications Medications (Trade) Dose Ordered Sig/Moiz Route Start Time Stop Time Status Last Admin (NS Flush) 2 ml UNSCH PRN IV FLUSH 09/30/16 13:15 (NS Flush) 2 ml BID IV FLUSH 09/30/16 21:00 09/30/16 19:49 (Narcan Inj) 0.4 mg UNSCH PRN IV 09/30/16 13:15 (Lipitor) 80 mg HS PO 09/30/16 21:00 09/30/16 22:25 Aspirin 81 mg 81 mg DAILY PO 10/01/16 09:00 (Rocephin Inj/NS Inj) 100 ml @ 200 mls/hr Q24H IV 10/01/16 12:00 (Lasix Inj) 40 mg BID@09,18 IV PUSH 09/30/16 18:00 09/30/16 18:03 (D50w (Vial) Inj) 25 ml UNSCH PRN IV PUSH 09/30/16 14:45 (Glucagon Inj) 1 mg UNSCH PRN OTHER 09/30/16 14:45 Insulin Human Regular 1 1 Q6H SQ 09/30/16 15:00 09/30/16 16:06 (Heparin-D5W Inj) 250 ml @ 0 mls/hr TITRATE IV 09/30/16 19:00 09/30/16 19:45 Miscellaneous Information Patient in critical care unit? Ass... Q361D .XX 10/01/16 03:00 10/01/16 03:00 (Chlorhexidine 2% Cloth) 3 pack DAILY@04 TOPICAL 10/01/16 04:00 10/05/16 04:01 10/01/16 06:06 (Chlorhexidine 2% Cloth) 3 pack UNSCH PRN TOPICAL 10/01/16 03:00 10/06/16 02:54 Vital Signs / I&O Vital Signs Date Time Temp Pulse Resp B/P Pulse Ox O2 Delivery O2 Flow Rate FiO2 10/01/16 06:00 55 10/01/16 04:20 97 35 10/01/16 04:00 97.8 53 20 163/67 97 10/01/16 04:00 53 10/01/16 02:00 57 10/01/16 01:30 97 35 10/01/16 00:30 97.7 80 24 179/84 99 10/01/16 00:30 80 09/30/16 22:41 99 35 09/30/16 22:40 99 BiPAP 35 09/30/16 22:01 98 40 09/30/16 22:00 69 16 177/74 98 BiPAP 40 09/30/16 20:00 66 16 168/74 96 BiPAP 45 09/30/16 19:30 64 20 152/78 99 BiPAP 40 09/30/16 19:08 98 BiPAP 40 09/30/16 19:08 98 40 09/30/16 18:00 64 26 165/84 100 BiPAP 09/30/16 17:00 68 26 163/74 95 BiPAP 09/30/16 16:00 60 24 160/70 99 BiPAP 09/30/16 15:46 99 40 09/30/16 15:00 72 27 163/75 99 BiPAP 09/30/16 14:00 82 30 151/67 98 BiPAP 40 09/30/16 13:00 72 28 161/77 97 BiPAP 09/30/16 12:20 98.8 79 26 156/123 94 BiPAP 09/30/16 12:05 98 60 09/30/16 11:00 94 Nasal Cannula 2 09/30/16 10:40 94 Nasal Cannula 2 09/30/16 10:40 94 Nasal Cannula 2 09/30/16 10:11 98.4 81 24 187/80 93 I/O 09/30/16 09/30/16 09/30/16 10/01/16 10/01/16 10/01/16 07:00 15:00 23:00 07:00 15:00 23:00 Intake Total 79 ml Output Total 750 ml 1050 ml Balance -750 ml -971 ml Intake IV Total 79 ml Output Urine Total 750 ml 1050 ml Physical Exam GENERAL: Well developed, well nourished. No acute distress. HEENT: Jugular venous pressure is normal. CHEST: Lungs rhonchi in left base, otherwise clear to auscultation bilaterally. Unlabored respiratory effort. CARDIAC: Regular rate and rhythm without S3, S4, or murmur. ABDOMEN: Soft, nontender, no hepatosplenomegaly. Bowel sounds present. EXTREMITIES: No clubbing, cyanosis, or edema. Laboratory Laboratory Tests Test 09/30/16 09/30/16 09/30/16 09/30/16 10:20 10:40 12:45 14:11 White Blood Count 9.4 TH/MM3 Red Blood Count 3.01 MIL/MM3 Hemoglobin 10.3 GM/DL Hematocrit 30.1 % Mean Corpuscular Volume 100.0 FL Mean Corpuscular Hemoglobin 34.3 PG Mean Corpuscular Hemoglobin 34.3 % Concent Red Cell Distribution Width 14.6 % Platelet Count 107 TH/MM3 Mean Platelet Volume 9.9 FL Neutrophils (%) (Auto) 93.7 % Lymphocytes (%) (Auto) 1.8 % Monocytes (%) (Auto) 3.8 % Eosinophils (%) (Auto) 0.0 % Basophils (%) (Auto) 0.7 % Neutrophils # (Auto) 8.8 TH/MM3 Lymphocytes # (Auto) 0.2 TH/MM3 Monocytes # (Auto) 0.4 TH/MM3 Eosinophils # (Auto) 0.0 TH/MM3 Basophils # (Auto) 0.1 TH/MM3 CBC Comment DIFF FINAL Differential Comment Sodium Level 145 MEQ/L Potassium Level 4.6 MEQ/L Chloride Level 111 MEQ/L Carbon Dioxide Level 21.3 MEQ/L Anion Gap 13 MEQ/L Blood Urea Nitrogen 38 MG/DL Creatinine 1.82 MG/DL Estimat Glomerular Filtration 35 ML/MIN Rate Random Glucose 166 MG/DL Lactic Acid Level 4.0 mmol/L 2.5 mmol/L Calcium Level 8.2 MG/DL Magnesium Level 2.2 MG/DL Total Bilirubin 0.8 MG/DL Aspartate Amino Transf 42 U/L (AST/SGOT) Alanine Aminotransferase 32 U/L (ALT/SGPT) Alkaline Phosphatase 105 U/L Total Creatine Kinase 170 U/L Creatine Kinase MB 2.5 NG/ML Troponin I 0.70 NG/ML B-Type Natriuretic Peptide 2718 PG/ML Total Protein 6.9 GM/DL Albumin 3.0 GM/DL Urine Color YELLOW Urine Turbidity CLEAR Urine pH 6.0 Urine Specific [place] 1.020 Urine Protein 100 mg/dL Urine Glucose (UA) NEG mg/dL Urine Ketones NEG mg/dL Urine Occult Blood SMALL Urine Nitrite NEG Urine Bilirubin NEG Urine Urobilinogen LESS THAN 2.0 MG/DL Urine Leukocyte Esterase NEG Urine RBC 4 /hpf Urine WBC 1 /hpf Urine Squamous Epithelial <1 /hpf Cells Urine Bacteria RARE /hpf Urine Mucus FEW /lpf Microscopic Urinalysis Comment CATH-CULTURE IND Blood Gas Puncture Site RT RADIAL Blood Gas Patient Temperature 98.6 Blood Gas HCO3 19 mmol/L Blood Gas Base Excess -4.7 mmol/L Blood Gas Oxygen Saturation 98 % Arterial Blood pH 7.45 Arterial Blood Partial 27 mmHg Pressure CO2 Arterial Blood Partial 134 mmHG Pressure O2 Arterial Blood Oxygen Content 13.6 Vol % Arterial Blood 0.9 % Carboxyhemoglobin Arterial Blood Methemoglobin 0.5 % Blood Gas Hemoglobin 9.7 G/DL Oxygen Delivery Device BIPAP Blood Gas Ventilator Setting [id number] Blood Gas Inspired Oxygen 40 % Test 09/30/16 09/30/16 09/30/16 10/01/16 17:17 17:55 21:10 00:30 Troponin I 1.49 NG/ML 1.96 NG/ML Lactic Acid Level 2.7 mmol/L 2.6 mmol/L White Blood Count 9.2 TH/MM3 Red Blood Count 3.01 MIL/MM3 Hemoglobin 10.4 GM/DL Hematocrit 30.2 % Mean Corpuscular Volume 100.5 FL Mean Corpuscular Hemoglobin 34.5 PG Mean Corpuscular Hemoglobin 34.4 % Concent Red Cell Distribution Width 14.3 % Platelet Count 97 TH/MM3 Mean Platelet Volume 9.4 FL Prothrombin Time 13.4 SEC Prothromb Time International 1.2 RATIO Ratio Activated Partial 73.2 SEC Thromboplast Time Nasal Screen MRSA (PCR) NEGATIVE Test 10/01/16 10/01/16 02:29 04:26 White Blood Count 8.9 TH/MM3 Red Blood Count 3.06 MIL/MM3 Hemoglobin 9.8 GM/DL Hematocrit 29.3 % Mean Corpuscular Volume 95.5 FL Mean Corpuscular Hemoglobin 31.9 PG Mean Corpuscular Hemoglobin 33.4 % Concent Red Cell Distribution Width 14.3 % Platelet Count 93 TH/MM3 Mean Platelet Volume 9.6 FL Neutrophils (%) (Auto) 87.9 % Lymphocytes (%) (Auto) 4.1 % Monocytes (%) (Auto) 7.8 % Eosinophils (%) (Auto) 0.0 % Basophils (%) (Auto) 0.2 % Neutrophils # (Auto) 7.8 TH/MM3 Lymphocytes # (Auto) 0.4 TH/MM3 Monocytes # (Auto) 0.7 TH/MM3 Eosinophils # (Auto) 0.0 TH/MM3 Basophils # (Auto) 0.0 TH/MM3 CBC Comment DIFF FINAL Differential Comment Activated Partial 69.7 SEC 67.5 SEC Thromboplast Time Sodium Level 146 MEQ/L Potassium Level 3.4 MEQ/L Chloride Level 112 MEQ/L Carbon Dioxide Level 24.2 MEQ/L Anion Gap 10 MEQ/L Blood Urea Nitrogen 43 MG/DL Creatinine 1.77 MG/DL Estimat Glomerular Filtration 36 ML/MIN Rate Random Glucose 112 MG/DL Calcium Level 8.0 MG/DL Phosphorus Level 3.5 MG/DL Magnesium Level 2.3 MG/DL Assessment and Plan Assessment and Plan SHOB- likely multifactorial: pneumonia? -SHOB disproportionate to CHF and there was elevated lactic acid Acute CHF- improved, change to PO lasix Cardiomyopathy- HR too low for BB, KRISTIN low dose PAF- rate controlled, on heparin- fpc anticoagulation controversial with anemia and questionable compliance HTN- amlodipine CKD- chronic and near baseline Resp insufficiency- off biPAP, per [facility] Anemia- chronic, Floresita Degroot MD Oct 01, 2016 07:42
[2016-10-01] MEDS ORDERED: POTASSIUM CHLORIDE 10 MEQ CONTROLLED RELEASE TAB PO ONE ×2 (07:45→09:00)
--- NOTE | 2016-10-01 08:41 | HHI.HP ---
[facility] Service Family Medicine Primary Care Physician Mendel Squires MD, PhD Admission Diagnosis severe sepsis/CHF new onset Diagnoses: (1) Dyspnea Diagnosis: Principal (2) Lower extremity edema Diagnosis: Principal (3) Pneumonia Diagnosis: Principal (4) Pontine lesion Diagnosis: Principal (5) Nutrition, metabolism, and development symptoms Diagnosis: Principal (6) No contraindication to deep vein thrombosis (DVT) prophylaxis Diagnosis: Principal International Travel<30 Days: No Contact w/Intl Traveler<30days: No Known Affected Area: No History of Present Illness Mr Mott is an 89 year old male with PMH of hypertension and a fib who presented with new onset lower extremity edema, dyspnea, generalized weakness, fevers, and altered mental status. His family (two daughters and son in law) provided most of the history. Symptoms started on Thursday. Initially he improved, but overnight he acutely worsened. He was having labored breathing. Normally he bikes 5 miles a day, but on the day of admission was hardly able to stand up. Per the family, he was also confused. He had 3 episodes of diarrhea the night before he came in. He also had fevers, with 102.5 being the highest but none since admission. He is currently oriented X3 and answering questions appropriately. Currently he is afebrile. He was on BIPAP and was having respiratory distress initially but today is just on nasal canula and feel well. He has no chest pain. he has no complaints this am and reports he feels back to baseline. Review of Systems Other Constitutional: COMPLAINS OF: Fever, Chills, DENIES: Diaphoretic episodes, Fatigue, Weight gain, Weight loss, Change in appetite Endocrine: DENIES: Polydipsia, Polyuria, Polyphagia Eyes: DENIES: Eye inflammation, Double Vision Ears, nose, mouth, throat: DENIES: Throat pain, Running Nose, Odynophagia Respiratory: COMPLAINS OF: Cough, Shortness of breath, DENIES: Wheezing, Sputum production Cardiovascular: COMPLAINS OF: Dyspnea on Exertion, Lower Extremity Edema, Orthopnea, DENIES: Chest pain, Palpitations Gastrointestinal: DENIES: Abdominal pain, Bloody stools, Diarrhea, Nausea, Vomiting, Difficulty Swallowing Genitourinary: DENIES: Urgency, Hematuria, Dysuria Musculoskeletal: DENIES: Neck pain Integumentary: DENIES: Rash Hematologic/lymphatic: DENIES: Lymphadenopathy Immunologic/allergic: DENIES: Eczema Neurologic: DENIES: Headache, Localized weakness, Seizures, Speech Problems, Poor Balance Psychiatric: COMPLAINS OF: Confusion, DENIES: Anxiety, Depression Past Family Social History Past Medical History Hypertension per chart a fib and low H/H and thrombocytopenia chronically possibly myelodysplastic syndrome though he declines bone marrow biopsy Healthy at baseline per daughters he is actively riding his bike and managing his own affairs normally Dr. Squires is PCP Gets vitamin B12 shots Prostate cancer, in complete remission for 20 years Past Surgical History Prostate surgery: 20 years ago Hernia surgery 2 years ago Allergies: Coded Allergies: No Known Allergies (Verified , 12/27/08) Family History Mother and father: uncertain No major illnesses reported Social History Quit smoking in his 50's, smoked for 30 years Alcohol use: none Drug use: none Independent, lives alone, very healthy for his years per daughters who live nearby Significant other in a prison Daughters and son and law help to take care of him Physical Exam Vital Signs Vital Signs Date Time Temp Pulse Resp B/P Pulse Ox O2 Delivery O2 Flow Rate FiO2 10/01/16 08:19 97 Nasal Cannula 4.00 10/01/16 06:00 55 10/01/16 04:20 97 35 10/01/16 04:00 97.8 53 20 163/67 97 10/01/16 04:00 53 10/01/16 02:00 57 10/01/16 01:30 97 35 10/01/16 00:30 97.7 80 24 179/84 99 10/01/16 00:30 80 09/30/16 22:41 99 35 09/30/16 22:40 99 BiPAP 35 09/30/16 22:01 98 40 09/30/16 22:00 69 16 177/74 98 BiPAP 40 09/30/16 20:00 66 16 168/74 96 BiPAP 45 09/30/16 19:30 64 20 152/78 99 BiPAP 40 09/30/16 19:08 98 BiPAP 40 09/30/16 19:08 98 40 09/30/16 18:00 64 26 165/84 100 BiPAP 09/30/16 17:00 68 26 163/74 95 BiPAP 09/30/16 16:00 60 24 160/70 99 BiPAP 09/30/16 15:46 99 40 09/30/16 15:00 72 27 163/75 99 BiPAP 09/30/16 14:00 82 30 151/67 98 BiPAP 40 09/30/16 13:00 72 28 161/77 97 BiPAP 09/30/16 12:20 98.8 79 26 156/123 94 BiPAP 09/30/16 12:05 98 60 09/30/16 11:00 94 Nasal Cannula 2 09/30/16 10:40 94 Nasal Cannula 2 09/30/16 10:40 94 Nasal Cannula 2 09/30/16 10:11 98.4 81 24 187/80 93 Physical Exam GENERAL: thin almost frail elderly gentleman sitting up in bed, on nasal canula , no acute distress SKIN: No rashes, no ulcers HEENT: Normocephalic, no nasal drainage, no pharyngeal erythema NECK: Trachea midline. No JVD or lymphadenopathy. Supple, nontender, no meningeal signs. CARDIOVASCULAR: Regular rate and rhythm without murmurs, gallops, or rubs. Pulses normal. JVD present. RESPIRATORY: Coarse breath sounds especially in lower lungs bilaterally initially but clear today with a few basilar rales. On nasal canula, no problems today GASTROINTESTINAL: Abdomen soft, non-tender, nondistended. No hepato-splenomegaly , or palpable masses. MUSCULOSKELETAL: Extremities without clubbing, cyanosis, or edema, had slight edema on admission. No joint tenderness, effusion, or edema noted today. No calf tenderness. NEUROLOGICAL: Awake and alert. Cranial nerves II through XII intact. Motor and sensory grossly within normal limits. Five out of 5 muscle strength in all muscle groups. Normal speech. Laboratory Laboratory Tests Test 09/30/16 09/30/16 09/30/16 09/30/16 10:20 10:40 12:45 14:11 White Blood Count 9.4 Red Blood Count 3.01 Hemoglobin 10.3 Hematocrit 30.1 Mean Corpuscular Volume 100.0 Mean Corpuscular Hemoglobin 34.3 Mean Corpuscular Hemoglobin 34.3 Concent Red Cell Distribution Width 14.6 Platelet Count 107 Mean Platelet Volume 9.9 Neutrophils (%) (Auto) 93.7 Lymphocytes (%) (Auto) 1.8 Monocytes (%) (Auto) 3.8 Eosinophils (%) (Auto) 0.0 Basophils (%) (Auto) 0.7 Neutrophils # (Auto) 8.8 Lymphocytes # (Auto) 0.2 Monocytes # (Auto) 0.4 Eosinophils # (Auto) 0.0 Basophils # (Auto) 0.1 CBC Comment DIFF FINAL Differential Comment Sodium Level 145 Potassium Level 4.6 Chloride Level 111 Carbon Dioxide Level 21.3 Anion Gap 13 Blood Urea Nitrogen 38 Creatinine 1.82 Estimat Glomerular Filtration 35 Rate Random Glucose 166 Lactic Acid Level 4.0 2.5 Calcium Level 8.2 Magnesium Level 2.2 Total Bilirubin 0.8 Aspartate Amino Transf 42 (AST/SGOT) Alanine Aminotransferase 32 (ALT/SGPT) Alkaline Phosphatase 105 Total Creatine Kinase 170 Creatine Kinase MB 2.5 Troponin I 0.70 B-Type Natriuretic Peptide 2718 Total Protein 6.9 Albumin 3.0 Urine Color YELLOW Urine Turbidity CLEAR Urine pH 6.0 Urine Specific [place] 1.020 Urine Protein 100 Urine Glucose (UA) NEG Urine Ketones NEG Urine Occult Blood SMALL Urine Nitrite NEG Urine Bilirubin NEG Urine Urobilinogen LESS THAN 2.0 Urine Leukocyte Esterase NEG Urine RBC 4 Urine WBC 1 Urine Squamous Epithelial <1 Cells Urine Bacteria RARE Urine Mucus FEW Microscopic Urinalysis Comment CATH-CULTURE IND Blood Gas Puncture Site RT RADIAL Blood Gas Patient Temperature 98.6 Blood Gas HCO3 19 Blood Gas Base Excess -4.7 Blood Gas Oxygen Saturation 98 Arterial Blood pH 7.45 Arterial Blood Partial 27 Pressure CO2 Arterial Blood Partial 134 Pressure O2 Arterial Blood Oxygen Content 13.6 Arterial Blood 0.9 Carboxyhemoglobin Arterial Blood Methemoglobin 0.5 Blood Gas Hemoglobin 9.7 Oxygen Delivery Device BIPAP Blood Gas Ventilator Setting IPAP10/EPAP5 Blood Gas Inspired Oxygen 40 Test 09/30/16 09/30/16 09/30/16 10/01/16 17:17 17:55 21:10 00:30 Troponin I 1.49 1.96 Lactic Acid Level 2.7 2.6 White Blood Count 9.2 Red Blood Count 3.01 Hemoglobin 10.4 Hematocrit 30.2 Mean Corpuscular Volume 100.5 Mean Corpuscular Hemoglobin 34.5 Mean Corpuscular Hemoglobin 34.4 Concent Red Cell Distribution Width 14.3 Platelet Count 97 Mean Platelet Volume 9.4 Prothrombin Time 13.4 Prothromb Time International 1.2 Ratio Activated Partial 73.2 Thromboplast Time Nasal Screen MRSA (PCR) NEGATIVE Test 10/01/16 10/01/16 02:29 04:26 White Blood Count 8.9 Red Blood Count 3.06 Hemoglobin 9.8 Hematocrit 29.3 Mean Corpuscular Volume 95.5 Mean Corpuscular Hemoglobin 31.9 Mean Corpuscular Hemoglobin 33.4 Concent Red Cell Distribution Width 14.3 Platelet Count 93 Mean Platelet Volume 9.6 Neutrophils (%) (Auto) 87.9 Lymphocytes (%) (Auto) 4.1 Monocytes (%) (Auto) 7.8 Eosinophils (%) (Auto) 0.0 Basophils (%) (Auto) 0.2 Neutrophils # (Auto) 7.8 Lymphocytes # (Auto) 0.4 Monocytes # (Auto) 0.7 Eosinophils # (Auto) 0.0 Basophils # (Auto) 0.0 CBC Comment DIFF FINAL Differential Comment Activated Partial 69.7 67.5 Thromboplast Time Sodium Level 146 Potassium Level 3.4 Chloride Level 112 Carbon Dioxide Level 24.2 Anion Gap 10 Blood Urea Nitrogen 43 Creatinine 1.77 Estimat Glomerular Filtration 36 Rate Random Glucose 112 Calcium Level 8.0 Phosphorus Level 3.5 Magnesium Level 2.3 Date/Time Procedure Status Source Growth 09/30/16 10:40 Urine Culture Received Urine Catheterized Urine Pending 09/30/16 10:25 Influenza Types A,B Antigen (NICHOLE) - Final Complete Nasal Washing NEGATIVE FOR FLU A AND B ANTIGEN.... 09/30/16 10:25 Aerobic Blood Culture Received Blood Peripheral Pending 09/30/16 10:25 Anaerobic Blood Culture Received Blood Peripheral Pending Result Diagram: 10/01/16 0229 10/01/16 0229 Imaging Last [address] 09/30/16 1025 Signed Impressions: Service Date/Time: Friday, September 30, 2016 10:55 - CONCLUSION: Ventriculomegaly which may represent central volume loss however mild hydrocephalus cannot be excluded. Focal hypodensity within the left side of the jacklyn which may represent a small infarct. No other evidence of acute infarct, hemorrhage, mass or edema. Doroteo Pacheco MD Chest X-Ray 09/30/16 1016 Signed Impressions: Service Date/Time: Friday, September 30, 2016 10:23 - CONCLUSION: Cardiomegaly. Fullness of the central bronchopulmonary markings suggesting either pulmonary venous hypertension or bilateral perihilar infiltrates. Wilbur Ridley MD Assessment and Plan Assessment and Plan 89 year old with shortness of breath, lower extremity edema, generalized weakness, and altered mental status. Problem List: (1) Dyspnea Status: Acute Plan: New onset dyspnea is this otherwise healthy elderly male. Also with lower extremity edema that is new in onset. DDx is wide, including pneumonia, PE , acute CHF, myocardial infarction, COPD. BNP significantly elevated to 2718. Initial troponin 0.7. X-ray showing cardiomegaly, pulmonary congestion/edema. No history of CHF, so the question is why he is in acute heart failure now. Wells criteria is 3, low risk for PE. Initial lactic acid elevated to 4.0, decreasing on BIPAP. White count normal, neutrophils elevated. Fever 102.5 at home, normal here. - Because of the complications with balancing fluid load in a patient with sepsis and acute fluid overload, we consulted critical care and placed him in the ICU for closer monitoring. Thankfully he is better today and may be ready to be transferred out - Will need strict I's and O's and daily weights. - Trended troponin levels and EKG's. - DuoNeb treatments, continue if they are beneficial. - Lasix PRN for fluid overload, will start 40 mg IV bid. - Telemetry for heart monitoring - Aspirin, atorvastatin - Beta thanh, spironolactone if indicated before discharge - Cardiology on board for acute CHF - Will get ECHO for further evaluation. -ABG (2) Pneumonia Status: Acute Plan: Possible pneumonia on x-ray, having fevers, neutrophilia. He could have fluid overload more than Pneumonia with his elevated BNP - Continue Cefepime and Azithromycin (3) A-fib Status: Chronic Plan: On discussions with pt with daughters in his room, explained that he had a fib probably on and off for some time. Pt discussed being on blood thinners in the past and that he had a colonoscopy and endoscopy to be sure he was not bleeding so he doesn't want stronger blood thinners than aspirin. Discussed that he has an increased risk of CVA with a fib but he wants to just continue aspirin. (4) Lower extremity edema Status: Acute Plan: See plan for dyspnea above (5) Nutrition, metabolism, and development symptoms Status: Acute Plan: - Strict I's and O's - Gentle hydration balanced with diuresis in this patient with sepsis and acute CHF, will heplock iv - Monitor electrolytes with fluid overload and diuresis - Diet regular (6) No contraindication to deep vein thrombosis (DVT) prophylaxis Status: Acute Plan: Heparin for prophylaxis Bilateral SCD's (7) Thrombocytopenia Status: Chronic Plan: probably myelodysplastic syndrome but pt refuses bone marrow biopsy, asymptomatic (8) Anemia Status: Chronic Plan: see thrombocytopenia (9) Pontine lesion Status: Acute Plan: 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 In the case of services not specified as inpatient-only, they are appropriately provided as inpatient services in accordance with the 2-midnight benchmark. Estimated LOS (days): 3 3 days is the estimated time the patient will need to remain in the hospital, assuming treatment plan goals are met and no additional complications. Post-Hospital Plan: Not yet determined Problem Qualifiers (1) Dyspnea: Qualified Code: R06.02 - Shortness of breath (2) Lower extremity edema: Qualified Code: R60.0 - Bilateral edema of lower extremity (3) Pneumonia: Qualified Code: J18.1 - Pneumonia of lower lobe due to infectious organism, unspecified laterality (4) A-fib: Qualified Code: I48.0 - Paroxysmal atrial fibrillation (5) Anemia: Qualified Code: D64.9 - Anemia, unspecified type Deena Calvo MD Oct 01, 2016 08:41
[2016-10-01] MEDS ORDERED: amLODIPine BESYLATE 5 MG TAB PO SCH (09:00)
[2016-10-01] MEDS ORDERED: CARVEDILOL 3.125 MG TAB PO SCH (09:00)
--- NOTE | 2016-10-01 09:01 | HHI.CCPN ---
Subjective Remarks/Hospital Course The patient is an 89-year-old male with remote history of prostate cancer, hypertension, who presented to [facility] ED with a 3-day history of the edema of lower extremities, associated with shortness of breath and generalized weakness. In addition the patient had fever with temperature of 101.5 per his daughters. The patient also was confused. He denies any chest pain, nausea, vomiting or abdominal pain. On arrival to the ED he was hypertensive with blood pressure 187/80 and due to his respiratory distress, he was placed on BiPap 10/5 with 40% FIO2. ABG was performed which showed a pH of 7.45, CO2 27, pAO2 134, bicarb 19, saturation of 98%. His chest x-ray showed cardiomegaly with pulmonary vascular congestion. His laboratory data significant for elevated BNP at 2,718 and troponin of 0.70. Also he had a lactic acid of 4.0, however, on repeat it trended down to 2.5. There is no evidence of any fever or leukocytosis on arrival. Due to altered mental status, CT scan of the brain was obtained which showed possible small infarct. No other evidence of any acute infarct, hemorrhage, mass effect or edema. In the ER he was given Lasix 20 mg IV push, cefepime and azithromycin. His nasal washing is negative for influenza types A and B antigen. 10/01 Patient is off BIPAP and is on 4L oxygen with good sats. Afebrile. Objective Vital Signs Date Time Temp Pulse Resp B/P Pulse Ox O2 Delivery O2 Flow Rate FiO2 10/01/16 08:19 97 Nasal Cannula 4.00 10/01/16 06:00 55 10/01/16 04:20 35 10/01/16 04:00 97.8 20 163/67 Intake and Output 09/30/16 09/30/16 10/01/16 08:00 16:00 00:00 Output Total 750 ml Balance -750 ml Result Diagram: 10/01/16 0229 10/01/16 0229 Other Results Laboratory Tests Test 09/30/16 09/30/16 09/30/16 09/30/16 10:20 10:40 12:45 14:11 White Blood Count 9.4 TH/MM3 Red Blood Count 3.01 MIL/MM3 Hemoglobin 10.3 GM/DL Hematocrit 30.1 % Mean Corpuscular Volume 100.0 FL Mean Corpuscular Hemoglobin 34.3 PG Mean Corpuscular Hemoglobin 34.3 % Concent Red Cell Distribution Width 14.6 % Platelet Count 107 TH/MM3 Mean Platelet Volume 9.9 FL Neutrophils (%) (Auto) 93.7 % Lymphocytes (%) (Auto) 1.8 % Monocytes (%) (Auto) 3.8 % Eosinophils (%) (Auto) 0.0 % Basophils (%) (Auto) 0.7 % Neutrophils # (Auto) 8.8 TH/MM3 Lymphocytes # (Auto) 0.2 TH/MM3 Monocytes # (Auto) 0.4 TH/MM3 Eosinophils # (Auto) 0.0 TH/MM3 Basophils # (Auto) 0.1 TH/MM3 CBC Comment DIFF FINAL Differential Comment Sodium Level 145 MEQ/L Potassium Level 4.6 MEQ/L Chloride Level 111 MEQ/L Carbon Dioxide Level 21.3 MEQ/L Anion Gap 13 MEQ/L Blood Urea Nitrogen 38 MG/DL Creatinine 1.82 MG/DL Estimat Glomerular Filtration 35 ML/MIN Rate Random Glucose 166 MG/DL Lactic Acid Level 4.0 mmol/L 2.5 mmol/L Calcium Level 8.2 MG/DL Magnesium Level 2.2 MG/DL Total Bilirubin 0.8 MG/DL Aspartate Amino Transf 42 U/L (AST/SGOT) Alanine Aminotransferase 32 U/L (ALT/SGPT) Alkaline Phosphatase 105 U/L Total Creatine Kinase 170 U/L Creatine Kinase MB 2.5 NG/ML Troponin I 0.70 NG/ML B-Type Natriuretic Peptide 2718 PG/ML Total Protein 6.9 GM/DL Albumin 3.0 GM/DL Urine Color YELLOW Urine Turbidity CLEAR Urine pH 6.0 Urine Specific [place] 1.020 Urine Protein 100 mg/dL Urine Glucose (UA) NEG mg/dL Urine Ketones NEG mg/dL Urine Occult Blood SMALL Urine Nitrite NEG Urine Bilirubin NEG Urine Urobilinogen LESS THAN 2.0 MG/DL Urine Leukocyte Esterase NEG Urine RBC 4 /hpf Urine WBC 1 /hpf Urine Squamous Epithelial <1 /hpf Cells Urine Bacteria RARE /hpf Urine Mucus FEW /lpf Microscopic Urinalysis Comment CATH-CULTURE IND Blood Gas Puncture Site RT RADIAL Blood Gas Patient Temperature 98.6 Blood Gas HCO3 19 mmol/L Blood Gas Base Excess -4.7 mmol/L Blood Gas Oxygen Saturation 98 % Arterial Blood pH 7.45 Arterial Blood Partial 27 mmHg Pressure CO2 Arterial Blood Partial 134 mmHG Pressure O2 Arterial Blood Oxygen Content 13.6 Vol % Arterial Blood 0.9 % Carboxyhemoglobin Arterial Blood Methemoglobin 0.5 % Blood Gas Hemoglobin 9.7 G/DL Oxygen Delivery Device BIPAP Blood Gas Ventilator Setting IPAP10/EPAP5 Blood Gas Inspired Oxygen 40 % Test 09/30/16 09/30/16 09/30/16 10/01/16 17:17 17:55 21:10 00:30 Troponin I 1.49 NG/ML 1.96 NG/ML Lactic Acid Level 2.7 mmol/L 2.6 mmol/L White Blood Count 9.2 TH/MM3 Red Blood Count 3.01 MIL/MM3 Hemoglobin 10.4 GM/DL Hematocrit 30.2 % Mean Corpuscular Volume 100.5 FL Mean Corpuscular Hemoglobin 34.5 PG Mean Corpuscular Hemoglobin 34.4 % Concent Red Cell Distribution Width 14.3 % Platelet Count 97 TH/MM3 Mean Platelet Volume 9.4 FL Prothrombin Time 13.4 SEC Prothromb Time International 1.2 RATIO Ratio Activated Partial 73.2 SEC Thromboplast Time Nasal Screen MRSA (PCR) NEGATIVE Test 10/01/16 10/01/16 02:29 04:26 White Blood Count 8.9 TH/MM3 Red Blood Count 3.06 MIL/MM3 Hemoglobin 9.8 GM/DL Hematocrit 29.3 % Mean Corpuscular Volume 95.5 FL Mean Corpuscular Hemoglobin 31.9 PG Mean Corpuscular Hemoglobin 33.4 % Concent Red Cell Distribution Width 14.3 % Platelet Count 93 TH/MM3 Mean Platelet Volume 9.6 FL Neutrophils (%) (Auto) 87.9 % Lymphocytes (%) (Auto) 4.1 % Monocytes (%) (Auto) 7.8 % Eosinophils (%) (Auto) 0.0 % Basophils (%) (Auto) 0.2 % Neutrophils # (Auto) 7.8 TH/MM3 Lymphocytes # (Auto) 0.4 TH/MM3 Monocytes # (Auto) 0.7 TH/MM3 Eosinophils # (Auto) 0.0 TH/MM3 Basophils # (Auto) 0.0 TH/MM3 CBC Comment DIFF FINAL Differential Comment Activated Partial 69.7 SEC 67.5 SEC Thromboplast Time Sodium Level 146 MEQ/L Potassium Level 3.4 MEQ/L Chloride Level 112 MEQ/L Carbon Dioxide Level 24.2 MEQ/L Anion Gap 10 MEQ/L Blood Urea Nitrogen 43 MG/DL Creatinine 1.77 MG/DL Estimat Glomerular Filtration 36 ML/MIN Rate Random Glucose 112 MG/DL Calcium Level 8.0 MG/DL Phosphorus Level 3.5 MG/DL Magnesium Level 2.3 MG/DL Imaging Last Impressions Chest X-Ray 10/01/16 0600 Signed Impressions: Service Date/Time: Saturday, October 01, 2016 04:19 - CONCLUSION: 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 Focal hypodensity within the left side of the jacklyn which may represent a small infarct. No other evidence of acute infarct, hemorrhage, mass or edema. Doroteo Pacheco MD Brain MRI 09/30/16 0000 Signed Impressions: Service Date/Time: Friday, September 30, 2016 16:23 - CONCLUSION: 1. Mild central and cortical ischemic atrophy with associated white matter signal change. 2. Evidence of acute stroke. 3. No focal signal abnormality seen in the jacklyn. Wilbur Ridley MD ADDENDUM: In the impression or conclusion above #2 should state that there is no evidence for acute infarction. Finding discussed with Dr. Odonnell. Daryn Thomas MD Objective Remarks GENERAL: Patient is 89 yo lying in bed in NAD SKIN: Warm and dry. HEAD: Normocephalic. EYES: No scleral icterus. No injection or drainage. NECK: Supple, trachea midline. No JVD or lymphadenopathy. CARDIOVASCULAR: Regular rate and rhythm without murmurs, gallops, or rubs. RESPIRATORY: Breath sounds equal bilaterally. Few coarse BS GASTROINTESTINAL: Abdomen soft, non-tender, nondistended. MUSCULOSKELETAL: No cyanosis, or edema. Neuro: Awake and alert A/P Assessment and Plan 1. Resp Insuff 2. CHF decompensation. 3. 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 4. Elevated troponin. 5. Acute kidney injury. 6. Lactic acidemia trending down. 7. Anemia 8. Thrombocytopenia 9. Hypertension 10. Remote history of prostate cancer. Plan Neuro: Monitor neuro status and avoid any sedatives. MRI brain: No acute infarction. Pulm: Continue with oxygen and maintain saturation above 92%. Bronchodilators, NIPPV PRN for respiratory distress. CV: Monitor HR and BP and maintain MAP>65 mmHg. Echo showed EF of 25-30% and diffuse hypokinesis. Cards-Dr. Degroot continue with aspirin 81 mg daily, Lipitor 80 mg n.p.o., q.h.s. Lisinopril 2.5mg daily, Norvasc 2.5mg daily Lasix 40mg BID :Monitor renal function I&O and avoid nephrotoxins. Continue with diuretics as stated above. Electrolyte replacement if needed. GI: Start PO heart healthy diet ID: Continue with abx(Rocephin) and monitor for signs of infections(fever and WBC). Nasal washing for influenza type A and B antigen is negative. Follow up on BC and urine cx from 09/30 Endo: SSI with Accu-Chek q. 6-hour for glycemic control. Heme: Monitor CBC GI/DVT prophylaxis Discussed with primary team will sign off. Level 3 Pooja Brand MD Oct 01, 2016 09:01
[2016-10-01] MEDS ORDERED: PILL SPLITTER OTHER PRN (09:15)
[2016-10-01] MEDS: ASPIRIN EC 81 MG TABEC PO SCH (09:18)
[2016-10-01] MEDS: POTASSIUM CHLORIDE 10 MEQ CONTROLLED RELEASE TAB PO SCH ×2 (09:18→22:29)
[2016-10-01] MEDS: FUROSEMIDE 40 MG/4 ML VIAL IV PUSH SCH (09:19)
[2016-10-01] MEDS: SODIUM CHLORIDE 0.9% FLUSH 10 ML FLUSH IV FLUSH SCH ×2 (09:20→22:29)
[2016-10-01] MEDS: LISINOPRIL 5 MG TAB PO SCH (09:20)
[2016-10-01] MEDS ORDERED: hydrALAZINE HCL 20 MG/ML VIAL IV ONE (10:30)
[2016-10-01] MEDS ORDERED: AZITHROMYCIN INJ 500 MG in SODIUM CHLOR 0.9% 250 ML INJ 250 ML IV SCH (11:00)
[2016-10-01] MEDS: cefTRIAXone INJ 2,000 MG in SODIUM CHLORIDE 0.9% INJ 100 ML IV SCH (12:31)
[2016-10-01] MEDS: FUROSEMIDE 40 MG TAB PO SCH (17:59)
[2016-10-01] MEDS: HEPARIN SODIUM - SQ 10,000 UNITS/ML VIAL SQ SCH (22:29)
[2016-10-01] MEDS: ATORVASTATIN 80 MG TAB PO SCH (22:29)
--- NOTE | 2016-10-01 22:33 | EKG ---
Date Performed: 09/30/2016 Time Performed: 22:34:13 PTAGE: 89 years EKG: ATRIAL FIBRILLATION WITH ABERRANT CONDUCTION OR VENTRICULAR PREMATURE COMPLEXES MARKED LEFT AXIS DEVIATION RIGHT BUNDLE BRANCH BLOCK POSSIBLE LEFT VENTRICULAR HYPERTROPHY POSSIBLE ANTERIOR FESTUS CARDIAL INFARCTION ABNORMAL ECG PREVIOUS TRACING : 09/30/2016 17.20 Compared to prior tracing no significant change DOCTOR: Sj Weller Interpretating Date/Time 10/01/2016 22:31:53
[2016-10-02] VITALS (11 sets, daily range): BP systolic 135–160; BP diastolic 64–74; PULSE 75–90; RESP 18–20; TEMP 97.4–98.1; O2SAT 92–98
[2016-10-02] MEDS: RESP: ALBUTEROL 2.5 MG/IPRATROPIUM 0.5 MG NEB (SCH) NEB ×7 (00:21→23:09)
[2016-10-02] MEDS: CHLORHEXIDINE GLUCONATE 2 % 1 PACK (2 CLOTHS)(taper/protocol) TOPICAL SCH (03:57)
[2016-10-02] MEDS: HEPARIN SODIUM - SQ 10,000 UNITS/ML VIAL SQ SCH ×3 (05:32→21:23)
[2016-10-02 07:16] LABS: HEMATOCRIT 30.2 % (39.0-51.0); MEAN CELL VOLUME 99.3 FL (80.0-100.0); MEAN CORPUSCULAR HGB CONC 34.2 % (32.0-36.0); PLATELET COUNT 110 TH/MM3 (150-450); RED BLOOD COUNT 3.04 MIL/MM3 (4.50-5.90); RED CELL DISTRIBUTION WIDTH 14.3 % (11.6-17.2); REVIEW FLAG FINAL
[2016-10-02 07:23] LABS: APTT (PATIENT) 25.8 SEC (24.3-30.1)
[2016-10-02 07:37] LABS: BICARBONATE 26.1 MEQ/L (21.0-32.0); POTASSIUM 3.7 MEQ/L (3.5-5.1)
--- NOTE | 2016-10-02 07:44 | PD.CARD.PN ---
Subjective Subjective Remarks Pt without complaints Objective Medications Current Medications Medications (Trade) Dose Ordered Sig/Moiz Route Start Time Stop Time Status Last Admin (NS Flush) 2 ml UNSCH PRN IV FLUSH 09/30/16 13:15 10/01/16 09:20 (NS Flush) 2 ml BID IV FLUSH 09/30/16 21:00 10/01/16 22:29 (Narcan Inj) 0.4 mg UNSCH PRN IV 09/30/16 13:15 (Lipitor) 80 mg HS PO 09/30/16 21:00 10/01/16 22:29 Aspirin 81 mg 81 mg DAILY PO 10/01/16 09:00 10/01/16 09:18 (Rocephin Inj/NS Inj) 100 ml @ 200 mls/hr Q24H IV 10/01/16 12:00 10/01/16 12:31 Miscellaneous Information Patient in critical care unit? Ass... Q361D .XX 10/01/16 03:00 10/01/16 03:00 (Chlorhexidine 2% Cloth) 3 pack DAILY@04 TOPICAL 10/01/16 04:00 10/05/16 04:01 10/01/16 06:06 (Chlorhexidine 2% Cloth) 3 pack UNSCH PRN TOPICAL 10/01/16 03:00 10/06/16 02:54 (Lasix) 40 mg BID@09,18 PO 10/01/16 18:00 10/01/16 17:59 (KCl) 10 meq Q12HR PO 10/01/16 09:00 10/01/16 22:29 (Prinivil) 2.5 mg DAILY PO 10/01/16 09:00 10/01/16 09:20 (Norvasc) 2.5 mg DAILY PO 10/01/16 09:00 10/01/16 09:19 (Pill Splitter) 1 ea UNSCH PRN OTHER 10/01/16 09:15 (Heparin Inj) 5,000 units Q8HR SQ 10/01/16 22:00 10/02/16 05:32 Vital Signs / I&O Vital Signs Date Time Temp Pulse Resp B/P Pulse Ox O2 Delivery O2 Flow Rate FiO2 10/02/16 04:03 94 21 10/02/16 03:50 98.1 88 18 160/74 94 10/02/16 00:23 95 21 10/01/16 23:25 98.4 80 20 146/66 94 10/01/16 19:57 98.5 80 20 151/65 92 10/01/16 16:29 95 21 10/01/16 16:00 97.6 97 22 154/66 93 10/01/16 12:00 85 10/01/16 12:00 97.6 85 20 146/71 99 10/01/16 10:00 78 10/01/16 08:19 97 Nasal Cannula 4.00 10/01/16 08:00 97.8 65 22 200/78 96 10/01/16 08:00 65 I/O 10/01/16 10/01/16 10/01/16 10/02/16 10/02/16 10/02/16 07:00 15:00 23:00 07:00 15:00 23:00 Intake Total 79 ml 409 ml 0 ml Output Total 1050 ml 550 ml 350 ml Balance -971 ml -141 ml -350 ml Intake Oral 360 ml 0 ml IV Total 79 ml 49 ml Output Urine Total 1050 ml 550 ml 350 ml # Bowel Movements 0 0 Physical Exam GENERAL: Well developed, well nourished. No acute distress. HEENT: Jugular venous pressure is normal. CHEST: Lungs rhonchi in left base, otherwise clear to auscultation bilaterally. Unlabored respiratory effort. CARDIAC: Regular rate and rhythm without S3, S4, or murmur. ABDOMEN: Soft, nontender, no hepatosplenomegaly. Bowel sounds present. EXTREMITIES: No clubbing, cyanosis, or edema. Laboratory Current Medications Medications (Trade) Dose Ordered Sig/Moiz Route Start Time Stop Time Status Last Admin (NS Flush) 2 ml UNSCH PRN IV FLUSH 09/30/16 13:15 10/01/16 09:20 (NS Flush) 2 ml BID IV FLUSH 09/30/16 21:00 10/01/16 22:29 (Narcan Inj) 0.4 mg UNSCH PRN IV 09/30/16 13:15 (Lipitor) 80 mg HS PO 09/30/16 21:00 10/01/16 22:29 Aspirin 81 mg 81 mg DAILY PO 10/01/16 09:00 10/01/16 09:18 (Rocephin Inj/NS Inj) 100 ml @ 200 mls/hr Q24H IV 10/01/16 12:00 10/01/16 12:31 Miscellaneous Information Patient in critical care unit? Ass... Q361D .XX 10/01/16 03:00 10/01/16 03:00 (Chlorhexidine 2% Cloth) 3 pack DAILY@04 TOPICAL 10/01/16 04:00 10/05/16 04:01 10/01/16 06:06 (Chlorhexidine 2% Cloth) 3 pack UNSCH PRN TOPICAL 10/01/16 03:00 10/06/16 02:54 (Lasix) 40 mg BID@09,18 PO 10/01/16 18:00 10/01/16 17:59 (KCl) 10 meq Q12HR PO 10/01/16 09:00 10/01/16 22:29 (Prinivil) 2.5 mg DAILY PO 10/01/16 09:00 10/01/16 09:20 (Norvasc) 2.5 mg DAILY PO 10/01/16 09:00 10/01/16 09:19 (Pill Splitter) 1 ea UNSCH PRN OTHER 10/01/16 09:15 (Heparin Inj) 5,000 units Q8HR SQ 10/01/16 22:00 10/02/16 05:32 Laboratory Tests Test 10/02/16 06:39 White Blood Count 8.0 TH/MM3 Red Blood Count 3.04 MIL/MM3 Hemoglobin 10.3 GM/DL Hematocrit 30.2 % Mean Corpuscular Volume 99.3 FL Mean Corpuscular Hemoglobin 34.0 PG Mean Corpuscular Hemoglobin 34.2 % Concent Red Cell Distribution Width 14.3 % Platelet Count 110 TH/MM3 Mean Platelet Volume 9.8 FL Activated Partial 25.8 SEC Thromboplast Time Sodium Level 145 MEQ/L Potassium Level 3.7 MEQ/L Chloride Level 110 MEQ/L Carbon Dioxide Level 26.1 MEQ/L Anion Gap 9 MEQ/L Blood Urea Nitrogen 50 MG/DL Creatinine 2.00 MG/DL Estimat Glomerular Filtration 32 ML/MIN Rate Random Glucose 101 MG/DL Calcium Level 8.4 MG/DL Imaging Last 72 hours Impressions Chest X-Ray 10/01/16 0600 Signed Impressions: Service Date/Time: Saturday, October 01, 2016 04:19 - CONCLUSION: 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 Focal hypodensity within the left side of the jacklyn which may represent a small infarct. No other evidence of acute infarct, hemorrhage, mass or edema. Doroteo Pacheco MD Chest X-Ray 09/30/16 1016 Signed Impressions: Service Date/Time: Friday, September 30, 2016 10:23 - CONCLUSION: Cardiomegaly. Fullness of the central bronchopulmonary markings suggesting either pulmonary venous hypertension or bilateral perihilar infiltrates. Wilbur Ridley MD Brain MRI 09/30/16 0000 Signed Impressions: Service Date/Time: Friday, September 30, 2016 16:23 - CONCLUSION: 1. Mild central and cortical ischemic atrophy with associated white matter signal change. 2. Evidence of acute stroke. 3. No focal signal abnormality seen in the jacklyn. Wilbur Ridley MD ADDENDUM: In the impression or conclusion above #2 should state that there is no evidence for acute infarction. Finding discussed with Dr. Odonnell. 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
[2016-10-02] MEDS: LISINOPRIL 5 MG TAB PO SCH (09:01)
[2016-10-02] MEDS: amLODIPine BESYLATE 5 MG TAB PO SCH (09:02)
[2016-10-02] MEDS: FUROSEMIDE 40 MG TAB PO SCH (09:02)
[2016-10-02] MEDS: POTASSIUM CHLORIDE 10 MEQ CONTROLLED RELEASE TAB PO SCH ×2 (09:02→21:23)
[2016-10-02] MEDS: SODIUM CHLORIDE 0.9% FLUSH 10 ML FLUSH IV FLUSH SCH ×2 (09:02→21:23)
[2016-10-02] MEDS: ASPIRIN EC 81 MG TABEC PO SCH (09:02)
[2016-10-02] MEDS ORDERED: WALKER WHEELS/F1 MIS (12:02)
[2016-10-02] MEDS: cefTRIAXone INJ 2,000 MG in SODIUM CHLORIDE 0.9% INJ 100 ML IV SCH (13:34)
[2016-10-02] MEDS: METOPROLOL SUCCINATE 25 MG EXTENDED RELEASE TAB PO SCH (14:11)
--- NOTE | 2016-10-02 14:47 | HHI.FPPN ---
Subjective Remarks No acute events. Lying in bed, comfortable. Reports no chest pain or shortness of breath. Reports edema is gone. Reports he feels back to baseline. Reports that he walked around room without much difficulty. He wants to go home. (Channing Rosenberg MD R2) Objective Vitals Vital Signs Date Time Temp Pulse Resp B/P Pulse Ox O2 Delivery O2 Flow Rate FiO2 10/02/16 12:00 97.4 90 20 157/72 96 10/02/16 08:49 98 10/02/16 08:00 97.4 90 20 157/72 96 10/02/16 04:03 94 21 10/02/16 03:50 98.1 88 18 160/74 94 10/02/16 00:23 95 21 10/01/16 23:25 98.4 80 20 146/66 94 10/01/16 19:57 98.5 80 20 151/65 92 10/01/16 16:29 95 21 10/01/16 16:00 97.6 97 22 154/66 93 I/O 10/01/16 10/01/16 10/01/16 10/02/16 10/02/16 10/02/16 07:00 15:00 23:00 07:00 15:00 23:00 Intake Total 79 ml 409 ml 0 ml Output Total 1050 ml 550 ml 350 ml Balance -971 ml -141 ml -350 ml Intake Oral 360 ml 0 ml IV Total 79 ml 49 ml Output Urine Total 1050 ml 550 ml 350 ml # Bowel Movements 0 0 (Channing Rosenberg MD R2) Result Diagram: 10/02/16 0639 10/02/16 0639 Imaging Last 72 hours Impressions Chest X-Ray 10/01/16 0600 Signed Impressions: Service Date/Time: Saturday, October 01, 2016 04:19 - CONCLUSION: 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 Focal hypodensity within the left side of the jacklyn which may represent a small infarct. No other evidence of acute infarct, hemorrhage, mass or edema. Doroteo Pacheco MD Chest X-Ray 09/30/16 1016 Signed Impressions: Service Date/Time: Friday, September 30, 2016 10:23 - CONCLUSION: Cardiomegaly. Fullness of the central bronchopulmonary markings suggesting either pulmonary venous hypertension or bilateral perihilar infiltrates. Wilbur Ridley MD Brain MRI 09/30/16 0000 Signed Impressions: Service Date/Time: Friday, September 30, 2016 16:23 - CONCLUSION: 1. Mild central and cortical ischemic atrophy with associated white matter signal change. 2. Evidence of acute stroke. 3. No focal signal abnormality seen in the jacklyn. Wilbur Ridley MD ADDENDUM: In the impression or conclusion above #2 should state that there is no evidence for acute infarction. Finding discussed with Dr. Odonnell. Daryn Thomas MD Objective Remarks GENERAL: Lying in bed, no distress SKIN: No rashes, no ulcers HEENT: Normocephalic, no nasal drainage, no pharyngeal erythema NECK: Trachea midline. No JVD or lymphadenopathy. Supple, nontender, no meningeal signs. CARDIOVASCULAR: Regular rate and rhythm without murmurs, gallops, or rubs. Pulses normal. RESPIRATORY: Lungs clear to auscultation, much better than at admission, no oxygen supplementation currently GASTROINTESTINAL: Abdomen soft, non-tender, nondistended. No hepato-splenomegaly , or palpable masses. MUSCULOSKELETAL: Extremities without clubbing, cyanosis, or edema, had slight edema on admission. No joint tenderness, effusion, or edema noted today. No calf tenderness. NEUROLOGICAL: Awake and alert. Cranial nerves II through XII intact. Motor and sensory grossly within normal limits. Normal speech. (Channing Rosenberg MD R2) A/P Assessment and Plan 89 year old with shortness of breath, lower extremity edema, generalized weakness, and altered mental status. Discharge Planning Dyspnea and edema improved from admission, now creatinine is elevated, likely prerenal kidney injury. (Channing Rosenberg MD R2) Attending Attestation Patient seen and examined. Case reviewed and discussed with the resident team. Agree with plan of care as discussed with me and documented in the resident note. (Deena Calvo MD) Problem List: (1) Prerenal acute renal failure Status: Acute Plan: Creatinine increased to 2.0 today, baseline seems to be about 1.5 based on past records. BUN/Cr ratio is 25, suggesting prerenal injury, likely from acute CHF. Also was started on KRISTIN and diuretics, which could contribute. - Monitor kidney function - Renally dose medications - Avoid nephrotoxic agents - Decrease Lasix from 40 bid to 40 qday. (2) Dyspnea Status: Resolved Plan: Dyspnea likely due to acute heart failure. Etiology of acute heart failure unclear, but could be recent AR, uncontrolled hypertension, uncontrolled atrial fibrillation. ECHO with significantly reduced ejection fraction. - Strict I's and O's and daily weights. - Lasix 40 mg qday - Aspirin, atorvastatin - Beta thanh low dose started today, watch blood pressures and pulse - Cardiology on board for acute CHF - May benefit from spironolactone before discharge. (3) A-fib Status: Chronic Plan: On discussions with pt with daughters in his room, explained that he had a fib probably on and off for some time. Pt discussed being on blood thinners in the past and that he had a colonoscopy and endoscopy to be sure he was not bleeding so he doesn't want stronger blood thinners than aspirin. Discussed that he has an increased risk of CVA with a fib but he wants to just continue aspirin. - Started low dose metoprolol - Continue aspirin (4) Myelodysplasia (myelodysplastic syndrome) Status: Chronic Plan: Chronic myelodysplasia - Choosing conservative management currently (5) No contraindication to deep vein thrombosis (DVT) prophylaxis Status: Acute Plan: Heparin for prophylaxis Bilateral SCD's (Channing Rosenberg MD R2) Problem Qualifiers (1) Dyspnea: Qualified Code: R06.02 - Shortness of breath (2) A-fib: Qualified Code: I48.0 - Paroxysmal atrial fibrillation Channing Rosenberg MD R2 Oct 02, 2016 14:47 Deena Calvo MD Oct 05, 2016 17:44
[2016-10-02 15:43] LABS: APTT (PATIENT) 26.4 SEC (24.3-30.1)
[2016-10-02] MEDS: ATORVASTATIN 80 MG TAB PO SCH (21:22)
[2016-10-03] MEDS: RESP: ALBUTEROL 2.5 MG/IPRATROPIUM 0.5 MG NEB (SCH) NEB ×2 (03:32→08:56)
[2016-10-03] MEDS: CHLORHEXIDINE GLUCONATE 2 % 1 PACK (2 CLOTHS)(taper/protocol) TOPICAL SCH (04:00)
[2016-10-03 04:32] VITALS: BP 163/74; PULSE 73; RESP 16; TEMP 97.5; O2SAT 95
[2016-10-03] MEDS: HEPARIN SODIUM - SQ 10,000 UNITS/ML VIAL SQ SCH (06:00)
--- NOTE | 2016-10-03 07:02 | HHI.FF ---
Face to Face Verification Diagnosis: (1) CHF (congestive heart failure) (2) Lower extremity edema Physical Therapy Order: Evaluate and Treat Home Health Nursing Order: Medical education Signs/symptoms of disease process CHF education I have seen patient Marley Mott on 10/03/16. My clinical findings support the need for the requested home health care services because: Patient has SOB I certify that my clinical findings support that this patient is homebound because: Unsteady gait/balance Rafael Odonnell MD R1 Oct 03, 2016 07:02
[2016-10-03 07:21] LABS: HEMATOCRIT 29.6 % (39.0-51.0); MEAN CELL VOLUME 101.9 FL (80.0-100.0); MEAN CORPUSCULAR HEMOGLOBIN 34.5 PG (27.0-34.0); MEAN CORPUSCULAR HGB CONC 33.8 % (32.0-36.0); PLATELET COUNT 110 TH/MM3 (150-450); RED CELL DISTRIBUTION WIDTH 14.2 % (11.6-17.2); REVIEW FLAG FINAL; WHITE BLOOD COUNT 6.1 TH/MM3 (4.0-11.0)
[2016-10-03 07:46] LABS: BICARBONATE 25.5 MEQ/L (21.0-32.0)
--- NOTE | 2016-10-03 07:55 | PD.CARD.PN ---
Subjective Subjective Remarks PT without complaints Objective Medications Current Medications Medications (Trade) Dose Ordered Sig/Moiz Route Start Time Stop Time Status Last Admin (NS Flush) 2 ml UNSCH PRN IV FLUSH 09/30/16 13:15 10/01/16 09:20 (NS Flush) 2 ml BID IV FLUSH 09/30/16 21:00 10/02/16 21:23 (Narcan Inj) 0.4 mg UNSCH PRN IV 09/30/16 13:15 (Lipitor) 80 mg HS PO 09/30/16 21:00 10/02/16 21:22 (Ecotrin Ec) 81 mg DAILY PO 10/01/16 09:00 10/02/16 09:02 Miscellaneous Information Patient in critical care unit? Ass... Q361D .XX 10/01/16 03:00 10/01/16 03:00 (Chlorhexidine 2% Cloth) 3 pack DAILY@04 TOPICAL 10/01/16 04:00 10/05/16 04:01 10/01/16 06:06 (Chlorhexidine 2% Cloth) 3 pack UNSCH PRN TOPICAL 10/01/16 03:00 10/06/16 02:54 (KCl) 10 meq Q12HR PO 10/01/16 09:00 10/02/16 21:23 (Prinivil) 2.5 mg DAILY PO 10/01/16 09:00 10/02/16 09:01 (Pill Splitter) 1 ea UNSCH PRN OTHER 10/01/16 09:15 (Heparin Inj) 5,000 units Q8HR SQ 10/01/16 22:00 10/03/16 06:00 (Norvasc) 5 mg DAILY PO 10/02/16 09:00 10/02/16 09:02 (Lasix) 40 mg DAILY PO 10/03/16 09:00 (Toprol Xl) 12.5 mg DAILY PO 10/02/16 14:00 10/02/16 14:11 Vital Signs / I&O Vital Signs Date Time Temp Pulse Resp B/P Pulse Ox O2 Delivery O2 Flow Rate FiO2 10/03/16 04:32 97.5 73 16 163/74 95 10/02/16 23:32 98.0 82 18 146/67 94 10/02/16 20:37 97.8 82 18 154/74 92 10/02/16 20:23 96 21 10/02/16 20:05 77 10/02/16 16:00 97.4 75 20 135/64 95 10/02/16 12:00 97.4 90 20 157/72 96 10/02/16 08:49 98 10/02/16 08:00 97.4 90 20 157/72 96 I/O 10/02/16 10/02/16 10/02/16 10/03/16 10/03/16 10/03/16 07:00 15:00 23:00 07:00 15:00 23:00 Intake Total 0 ml 717 ml 100 ml Output Total 350 ml 725 ml 400 ml Balance -350 ml -8 ml -300 ml Intake Oral 0 ml 717 ml 100 ml Output Urine Total 350 ml 725 ml 400 ml # Voids 3 # Bowel Movements 0 0 0 Physical Exam GENERAL: Well developed, well nourished. No acute distress. HEENT: Jugular venous pressure is normal. CHEST: Lungs rhonchi in left base, otherwise clear to auscultation bilaterally. Unlabored respiratory effort. CARDIAC: Regular rate and rhythm without S3, S4, or murmur. ABDOMEN: Soft, nontender, no hepatosplenomegaly. Bowel sounds present. EXTREMITIES: No clubbing, cyanosis, or edema. Laboratory Laboratory Tests Test 10/02/16 10/03/16 14:57 06:35 Activated Partial 26.4 SEC Thromboplast Time White Blood Count 6.1 TH/MM3 Red Blood Count 2.90 MIL/MM3 Hemoglobin 10.0 GM/DL Hematocrit 29.6 % Mean Corpuscular Volume 101.9 FL Mean Corpuscular Hemoglobin 34.5 PG Mean Corpuscular Hemoglobin 33.8 % Concent Red Cell Distribution Width 14.2 % Platelet Count 110 TH/MM3 Mean Platelet Volume 9.7 FL Sodium Level 142 MEQ/L Potassium Level 4.0 MEQ/L Chloride Level 109 MEQ/L Carbon Dioxide Level 25.5 MEQ/L Anion Gap 8 MEQ/L Blood Urea Nitrogen 53 MG/DL Creatinine 1.84 MG/DL Estimat Glomerular Filtration 35 ML/MIN Rate Random Glucose 93 MG/DL Calcium Level 8.5 MG/DL Imaging Last 72 hours Impressions Chest X-Ray 10/01/16 0600 Signed Impressions: Service Date/Time: Saturday, October 01, 2016 04:19 - CONCLUSION: 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 Focal hypodensity within the left side of the jacklyn which may represent a small infarct. No other evidence of acute infarct, hemorrhage, mass or edema. Doroteo Pacheco MD Chest X-Ray 09/30/16 1016 Signed Impressions: Service Date/Time: Friday, September 30, 2016 10:23 - CONCLUSION: Cardiomegaly. Fullness of the central bronchopulmonary markings suggesting either pulmonary venous hypertension or bilateral perihilar infiltrates. Wilbur Ridley MD Assessment and Plan Assessment and Plan Acute systolic CHF- stable on present meds - trop felt elevated secondary to CHF and CKD - fluid and sodium restrict discussed with pt - poor ICD candidate - questionable infection and compliance, declines procedures - high risk for readmission consider placement or stay with family to assist with meds and diet Cardiomyopathy- HR too low for BB, KRISTIN low dose -pt decline ischemia work up, which is reasonable given his comorbid conditions and consistent with declining other procedures like bone marrow biopsy -10/03 no change PAF- rate controlled, aspirin per PCP note HTN- optimize CKD- Anemia- chronic, Floresita Degroot MD Oct 03, 2016 07:55
[2016-10-03 08:00] VITALS: BP 168/79; PULSE 78; RESP 20; TEMP 97.3; O2SAT 95
[2016-10-03 09:00] VITALS: O2SAT 97
[2016-10-03] MEDS: SODIUM CHLORIDE 0.9% FLUSH 10 ML FLUSH IV FLUSH SCH (09:00)
[2016-10-03] MEDS ORDERED: FUROSEMIDE 40 MG TAB PO SCH (09:00)
[2016-10-03] MEDS ORDERED: ATOR1TAB18 PO (09:42)
[2016-10-03] MEDS ORDERED: METO25TA6 PO (09:42)
[2016-10-03] MEDS ORDERED: AMLO5 PO (09:42)
[2016-10-03] MEDS ORDERED: LISI-519 PO (09:42)
[2016-10-03] MEDS ORDERED: POTA-243 PO (09:42)
[2016-10-03] MEDS ORDERED: FURO40TA PO (09:42)
[2016-10-03] MEDS ORDERED: ASPI81TA11 PO (09:42)
[2016-10-03] MEDS: METOPROLOL SUCCINATE 25 MG EXTENDED RELEASE TAB PO SCH (09:49)
[2016-10-03] MEDS: POTASSIUM CHLORIDE 10 MEQ CONTROLLED RELEASE TAB PO SCH (09:49)
[2016-10-03] MEDS: amLODIPine BESYLATE 5 MG TAB PO SCH (09:49)
[2016-10-03] MEDS: LISINOPRIL 5 MG TAB PO SCH (09:49)
[2016-10-03] MEDS: ASPIRIN EC 81 MG TABEC PO SCH (09:49)
--- NOTE | 2016-10-03 10:43 | HHI.FPPN ---
Subjective Remarks No acute events overnight. Denies CP, SOB, N/V. Feels well. Wants to go home. ( Rafael Odonnell MD R1) Objective Vitals Vital Signs Date Time Temp Pulse Resp B/P Pulse Ox O2 Delivery O2 Flow Rate FiO2 10/03/16 09:00 97 10/03/16 08:00 97.3 78 20 168/79 95 10/03/16 04:32 97.5 73 16 163/74 95 10/02/16 23:32 98.0 82 18 146/67 94 10/02/16 20:37 97.8 82 18 154/74 92 10/02/16 20:23 96 21 10/02/16 20:05 77 10/02/16 16:00 97.4 75 20 135/64 95 10/02/16 12:00 97.4 90 20 157/72 96 I/O 10/02/16 10/02/16 10/02/16 10/03/16 10/03/16 10/03/16 07:00 15:00 23:00 07:00 15:00 23:00 Intake Total 0 ml 717 ml 100 ml Output Total 350 ml 725 ml 400 ml Balance -350 ml -8 ml -300 ml Intake Oral 0 ml 717 ml 100 ml Output Urine Total 350 ml 725 ml 400 ml # Voids 3 # Bowel Movements 0 0 0 (Rafael Odonnell MD R1) Result Diagram: 10/03/16 0635 10/03/16 0635 Objective Remarks GENERAL: Sitting up in chair, comfortable, no distress SKIN: No rashes, no ulcers CARDIOVASCULAR: Regular rate and rhythm without murmurs, gallops, or rubs. RESPIRATORY: Lungs clear to auscultation except mild crackles at b/l bases, much better than at admission, no oxygen supplementation currently GASTROINTESTINAL: Abdomen soft, non-tender, nondistended. No hepato-splenomegaly , or palpable masses. MUSCULOSKELETAL: Extremities without clubbing, cyanosis, or edema. NEUROLOGICAL: Awake and alert. Cranial nerves II through XII intact. Motor and sensory grossly within normal limits. Normal speech. (Rafael Odonnell MD R1) A/P Assessment and Plan 89 year old with shortness of breath, lower extremity edema, generalized weakness, and altered mental status. Discharge Planning Home with home health PT (Rafael Odonnell MD R1) Attending Attestation Patient seen and examined. Case reviewed and discussed with the resident team. Agree with plan of care as discussed with me and documented in the resident note. (Deena Calvo MD) Problem List: (1) Prerenal acute renal failure Status: Acute Plan: Creatinine decreased to ~1.8 today, baseline seems to be about 1.5 based on past records. Likely due to prerenal injury from acute CHF. Also was started on KRISTIN and diuretics, which could contribute. - Lasix 40 mg daily - Repeat BMP outpatient - F/u with PCP (2) Dyspnea Status: Resolved Plan: Dyspnea likely due to acute heart failure. Etiology of acute heart failure unclear, but could be recent SD, uncontrolled hypertension, uncontrolled atrial fibrillation. ECHO with significantly reduced ejection fraction. - Lasix 40 mg qday - Aspirin, atorvastatin - Continue low-dose metoprolol ER - F/u with PCP and cardiology (3) A-fib Status: Chronic Plan: On discussions with pt with daughters in his room, explained that he had a fib probably on and off for some time. Pt discussed being on blood thinners in the past and that he had a colonoscopy and endoscopy to be sure he was not bleeding so he doesn't want stronger blood thinners than aspirin. Discussed that he has an increased risk of CVA with a fib but he wants to just continue aspirin. - Started low dose metoprolol - Continue aspirin (4) Myelodysplasia (myelodysplastic syndrome) Status: Chronic Plan: Chronic myelodysplasia - Choosing conservative management currently dw Dr. Calvo (Rafael Odonnell MD R1) Problem Qualifiers (1) Dyspnea: Qualified Code: R06.02 - Shortness of breath (2) A-fib: Qualified Code: I48.0 - Paroxysmal atrial fibrillation Rafael Odonnell MD R1 Oct 03, 2016 10:43 Deena Calvo MD Oct 05, 2016 17:44
--- NOTE | 2016-10-03 11:21 | HHI.DS ---
Discharge Summary Admission Date Sep 30, 2016 at 12:03 pm Discharge Date: Oct 03, 2016 Admitting Diagnosis severe sepsis/CHF new onset (1) Prerenal acute renal failure Diagnosis: Secondary Plan: Creatinine decreased to ~1.8 today, baseline seems to be about 1.5 based on past records. Likely due to prerenal injury from acute CHF. Also was started on KRISTIN and diuretics, which could contribute. - Lasix 40 mg daily - Repeat BMP outpatient - F/u with PCP (2) Dyspnea Diagnosis: Principal Plan: Dyspnea likely due to acute heart failure. Etiology of acute heart failure unclear, but could be recent RI, uncontrolled hypertension, uncontrolled atrial fibrillation. ECHO with significantly reduced ejection fraction. - Lasix 40 mg qday - Aspirin, atorvastatin - Continue low-dose metoprolol ER - F/u with PCP and cardiology (3) A-fib Diagnosis: Secondary Plan: On discussions with pt with daughters in his room, explained that he had a fib probably on and off for some time. Pt discussed being on blood thinners in the past and that he had a colonoscopy and endoscopy to be sure he was not bleeding so he doesn't want stronger blood thinners than aspirin. Discussed that he has an increased risk of CVA with a fib but he wants to just continue aspirin. - Started low dose metoprolol - Continue aspirin (4) Myelodysplasia (myelodysplastic syndrome) Diagnosis: Secondary Plan: Chronic myelodysplasia - Choosing conservative management currently [facility] - Dr. Degroot Brief History Mr Mott is an 89 year old male with PMH of hypertension and a fib who presented with new onset lower extremity edema, dyspnea, generalized weakness, fevers, and altered mental status. His family (two daughters and son in law) provided most of the history. Symptoms started on Thursday. Initially he improved, but overnight he acutely worsened. He was having labored breathing. Normally he bikes 5 miles a day, but on the day of admission was hardly able to stand up. Per the family, he was also confused. He had 3 episodes of diarrhea the night before he came in. He also had fevers, with 102.5 being the highest but none since admission. He is currently oriented X3 and answering questions appropriately. Currently he is afebrile. He was on BIPAP and was having respiratory distress initially but today is just on nasal canula and feel well. He has no chest pain. he has no complaints this am and reports he feels back to baseline. CBC/BMP: 10/03/16 0635 10/03/16 0635 Significant Findings Laboratory Tests Test 09/30/16 09/30/16 09/30/16 09/30/16 12:45 14:11 17:17 17:55 Lactic Acid Level 2.5 mmol/L 2.7 mmol/L (0.4-2.0) (0.4-2.0) Blood Gas HCO3 19 mmol/L (22-26) Blood Gas Base Excess -4.7 mmol/L (-2-2) Arterial Blood pH 7.45 (7.380-7.420) Arterial Blood Partial 27 mmHg (38-42) Pressure CO2 Arterial Blood Partial 134 mmHG Pressure O2 (61-120) Blood Gas Hemoglobin 9.7 G/DL (12.0-16.0) Troponin I 1.49 NG/ML (0.02-0.05) Test 09/30/16 10/01/16 10/01/16 10/02/16 21:10 02:29 04:26 06:39 Red Blood Count 3.01 MIL/MM3 3.06 MIL/MM3 3.04 MIL/MM3 (4.50-5.90) (4.50-5.90) (4.50-5.90) Hemoglobin 10.4 GM/DL 9.8 GM/DL 10.3 GM/DL (13.0-17.0) (13.0-17.0) (13.0-17.0) Hematocrit 30.2 % 29.3 % 30.2 % (39.0-51.0) (39.0-51.0) (39.0-51.0) Mean Corpuscular Volume 100.5 FL (80.0-100.0) Mean Corpuscular Hemoglobin 34.5 PG (27.0-34.0) Platelet Count 97 TH/MM3 93 TH/MM3 110 TH/MM3 (150-450) (150-450) (150-450) Prothrombin Time 13.4 SEC (9.8-11.6) Activated Partial 73.2 SEC 69.7 SEC 67.5 SEC Thromboplast Time (24.3-30.1) (24.3-30.1) (24.3-30.1) Lactic Acid Level 2.6 mmol/L (0.4-2.0) Troponin I 1.96 NG/ML (0.02-0.05) Neutrophils (%) (Auto) 87.9 % (16.0-70.0) Lymphocytes (%) (Auto) 4.1 % (9.0-44.0) Neutrophils # (Auto) 7.8 TH/MM3 (1.8-7.7) Lymphocytes # (Auto) 0.4 TH/MM3 (1.0-4.8) Sodium Level 146 MEQ/L (136-145) Potassium Level 3.4 MEQ/L (3.5-5.1) Chloride Level 112 MEQ/L 110 MEQ/L (98-107) (98-107) Blood Urea Nitrogen 43 MG/DL (7-18) 50 MG/DL (7-18) Creatinine 1.77 MG/DL 2.00 MG/DL (0.60-1.30) (0.60-1.30) Estimat Glomerular Filtration 36 ML/MIN (>89) 32 ML/MIN (>89) Rate Random Glucose 112 MG/DL (74-106) Calcium Level 8.0 MG/DL 8.4 MG/DL (8.5-10.1) (8.5-10.1) B-Type Natriuretic Peptide 452 PG/ML (0-100) Test 10/03/16 06:35 Red Blood Count 2.90 MIL/MM3 (4.50-5.90) Hemoglobin 10.0 GM/DL (13.0-17.0) Hematocrit 29.6 % (39.0-51.0) Mean Corpuscular Volume 101.9 FL (80.0-100.0) Mean Corpuscular Hemoglobin 34.5 PG (27.0-34.0) Platelet Count 110 TH/MM3 (150-450) Chloride Level 109 MEQ/L (98-107) Blood Urea Nitrogen 53 MG/DL (7-18) Creatinine 1.84 MG/DL (0.60-1.30) Estimat Glomerular Filtration 35 ML/MIN (>89) Rate Imaging Last Impressions Chest X-Ray 10/01/16 0600 Signed Impressions: Service Date/Time: Saturday, October 01, 2016 04:19 - CONCLUSION: 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 Focal hypodensity within the left side of the jacklyn which may represent a small infarct. No other evidence of acute infarct, hemorrhage, mass or edema. Doroteo Pacheco MD Brain MRI 09/30/16 0000 Signed Impressions: Service Date/Time: Friday, September 30, 2016 16:23 - CONCLUSION: 1. Mild central and cortical ischemic atrophy with associated white matter signal change. 2. Evidence of acute stroke. 3. No focal signal abnormality seen in the jacklyn. Wilbur Ridley MD ADDENDUM: In the impression or conclusion above #2 should state that there is no evidence for acute infarction. Finding discussed with Dr. Odonnell. Daryn Thomas MD PE at Discharge GENERAL: Sitting up in chair, comfortable, no distress SKIN: No rashes, no ulcers CARDIOVASCULAR: Regular rate and rhythm without murmurs, gallops, or rubs. RESPIRATORY: Lungs clear to auscultation except mild crackles at b/l bases, much better than at admission, no oxygen supplementation currently GASTROINTESTINAL: Abdomen soft, non-tender, nondistended. No hepato-splenomegaly , or palpable masses. MUSCULOSKELETAL: Extremities without clubbing, cyanosis, or edema. NEUROLOGICAL: Awake and alert. Cranial nerves II through XII intact. Motor and sensory grossly within normal limits. Normal speech. Hospital Course 89 yo previously healthy and active male admitted for severe shortness of breath and altered mental status. Found to have CHF with EF of ~25% by Echo. Due to respiratory distress requiring BIPAP to maintain O2 saturations, he was placed in the ICU on admission. Initial CXR was also mildly suspicious for basilar pneumonia but patient had no recorded temperature in hospital and normal WBC. Treatment for CHF initiated with aggressive diuresis and patient's respiratory status improved; he was transferred to the medical floor on hospital day 2. By day 3, no longer requiring supplemental oxygen. Cardiology was consulted and began treatment with KRISTIN-I and CCB for CHF and HTN. Added beta -thanh day before discharge. Patient's functional and respiratory status returned to near baseline and he was cleared for discharge. Received a 3 day course of Rocephin IV for possible pneumonia, however due to clinical picture not truly being c/w PNA, no antibiotics were ordered on discharge. Prescribed medicines for CHF, HTN as noted below. Pt Condition on Discharge: Good Discharge Disposition: Disch w/ Home Health Serv Discharge Instructions DIET: Follow Instructions for: Low Sodium Diet Speech Therapy-Diet Recommends: Regular Activities you can perform: Regular-No Restrictions Follow up Referrals: Cardiology - 2 Weeks with Floresita Degroot MD PCP Follow-up - 1 Week New Orders: BASIC METABOLIC PROF - 3-5 Days New Medications: Walker with Front Wheels (Walker with Front Wheels) 1 Mis Mis 1 EA .ROUTE DIRECTED #1 Ref 0 EA Amlodipine (Norvasc) 5 Mg Tab 5 MG PO DAILY #[address] (Aspirin EC) 81 Mg Tabdr 81 MG PO DAILY #30 TAB Atorvastatin (Atorvastatin) 80 Mg Tab 80 MG PO HS #30 TAB Furosemide (Furosemide) 40 Mg Tab 40 MG PO DAILY #30 TAB Lisinopril (Lisinopril) 5 Mg Tab 2.5 MG PO DAILY #30 TAB Metoprolol Succinate ER 24 HR (Metoprolol Succinate ER 24 HR) 25 Mg Tab 12.5 MG PO DAILY #30 TAB Potassium Chloride ER (Klor-Con 10) 10 Meq Tab 10 MEQ PO Q12HR #60 TAB Discontinued Medications: Aspirin (Aspirin 325 Mg Tab) 325 Mg Tab 325 MG PO EVERY OTHER DAY Rafael Odonnell MD R1 Oct 03, 2016 11:21 am
== END 2016-10-03 10:41 | disposition home health service (06) | DRG 291 ==
LOC: NEPC 09:58 → NEDA 12:03 → NEDH 17:24 → HIME 10-01 00:20 → N04B 10-01 13:28
PROVIDERS: ADMIT Family Medicine; ATTEND Family Medicine
PROC: 5A09357 Assistance with Respiratory Ventilation, Less than 24 Consecutive Hours, Continuous Positive Airway Pressure (ICD-10-PCS; principal; 2016-09-30)
DX: I13.0 Hypertensive heart and chronic kidney disease with heart failure and stage 1 through stage 4 chronic kidney disease, or unspecified chronic kidney disease (principal); I50.21 Acute systolic (congestive) heart failure; N17.9 Acute kidney failure, unspecified; E87.2 Acidosis; G93.89 Other specified disorders of brain; I42.9 Cardiomyopathy, unspecified; I48.0 Paroxysmal atrial fibrillation; H91.90 Unspecified hearing loss, unspecified ear; Z85.46 Personal history of malignant neoplasm of prostate; R19.7 Diarrhea, unspecified; Z87.891 Personal history of nicotine dependence; R09.02 Hypoxemia; R74.8 Abnormal levels of other serum enzymes; E78.5 Hyperlipidemia, unspecified; Z92.3 Personal history of irradiation; I34.0 Nonrheumatic mitral (valve) insufficiency; N18.9 Chronic kidney disease, unspecified; R93.0 Abnormal findings on diagnostic imaging of skull and head, not elsewhere classified; D46.9 Myelodysplastic syndrome, unspecified
CPT/HCPCS: 36600; 70450; 70551; 71010; 80048; 80053; 81001; 82550; 82552; 82805; 83605; 83735; 83880; 84100; 84484; 85025; 85027; 85610; 85730; 87040; 87086; 87641; 87804; 93005; 93306; 94002; 94003; 94640; 94664; 96365; J0360; J0456; J0692; J0696; J1644; J1940; J7050; P9612

== ENCOUNTER 2016-10-03 17:14 | Inpatient (IN) | payer MEDICARE, OTHER ==
[~2016-10-03] VITALS: Ht 185.4 cm; Wt 66.4 kg
[~2016-10-03 17:14] MED LIST changes: +AMLO5 PO; +ASPI81TA11 PO; +ATOR1TAB18 PO; +FURO40TA PO; +LISI-519 PO; +METO25TA6 PO; +POTA-243 PO; +WALKER WHEELS/F1 MIS
[2016-10-03] MEDS ORDERED: SODIUM CHLOR 0.9% 1000 ML INJ 1,000 ML IV ONE (17:18)
[2016-10-03 17:34] VITALS: RESP 18; O2SAT 95
[2016-10-03 17:36] LABS: I-STAT POTASSIUM 4.3 MMOL/L (3.5-4.9)
[2016-10-03 17:38] LABS: AUTOMATED NEUTROPHIL # 4.7 TH/MM3 (1.8-7.7); BASOPHIL % 0.3 % (0.0-2.0); EOSINOPHIL # 0.2 TH/MM3 (0-0.4); EOSINOPHIL % 3.3 % (0.0-4.0); HEMATOCRIT 29.7 % (39.0-51.0); HEMO FLAGS DIFF FINAL; LYMPH % 11.4 % (9.0-44.0); LYMPHOCYTE # 0.8 TH/MM3 (1.0-4.8); MEAN CELL VOLUME 97.7 FL (80.0-100.0); MEAN CORPUSCULAR HGB CONC 33.8 % (32.0-36.0); MONO % 14.7 % (0.0-8.0); NEUT % 70.3 % (16.0-70.0); PLATELET COUNT 137 TH/MM3 (150-450); RED BLOOD COUNT 3.05 MIL/MM3 (4.50-5.90); RED CELL DISTRIBUTION WIDTH 14.6 % (11.6-17.2); WHITE BLOOD COUNT 6.7 TH/MM3 (4.0-11.0)
--- NOTE | 2016-10-03 17:38 | RADRPT ---
EXAM DATE/TIME: 10/03/2016 17:16 [facility] COMPARISON: CT BRAIN W/O CONTRAST, September 30, 2016, 10:55. INDICATIONS : Stroke alert; right sided weakness. RADIATION DOSE: 56.35 CTDIvol (mGy) This report was called by Dr. Blas to Dr. Watts at 1734 MEDICAL HISTORY : Hypertension. Cardiovascular disease Carcinoma, prostate. SURGICAL HISTORY : None. ENCOUNTER: Initial ACUITY: 1 day PAIN SCALE: Non-responsive LOCATION: cranial TECHNIQUE: Multiple contiguous axial images were obtained of the head. Using automated exposure control and adj ustment of the mA and/or kV according to patient size, radiation dose was kept as low as reasonably a chievable to obtain optimal diagnostic quality images. FINDINGS: CEREBRUM: The ventricles are normal for age. 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 No evidence of midline shift, m ass lesion, hemorrhage or acute infarction. No extra-axial fluid collections are seen. POSTERIOR FOSSA: Possible old lacunar type infarct in the left side of the pontine nucleus. The 4th ventricle is midl ine. The cerebellopontine angle is unremarkable. EXTRACRANIAL: The visualized portion of the orbits is intact. SKULL: The calvaria is intact. No evidence of skull fracture. CONCLUSION: 1. 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 2. Nothing acute. Richard Blas MD on October 03, 2016 at 17:30 Board Certified Radiologist. This report was verified electronically.
[2016-10-03 17:49] VITALS: BP 162/72; PULSE 68; RESP 18; O2SAT 97
[2016-10-03 17:52] LABS: APTT (PATIENT) 26.4 SEC (24.3-30.1); PROTHROMBIN TIME - PATIENT 11.2 SEC (9.8-11.6)
[2016-10-03] MEDS ORDERED: METOPROLOL TARTRATE 5 MG/5 ML VIAL IV PUSH PRN (18:00)
[2016-10-03] MEDS ORDERED: ASPIRIN 325 MG TAB PO ONE (18:00)
--- NOTE | 2016-10-03 18:23 | PD ---
HPI Chief Complaint: Stroke Alert Time Seen by Provider: 17:16 Travel History International Travel<30 days: No Contact w/Intl Traveler<30days: No Traveled to known affect area: No History of Present Illness HPI 89-year-old male recently released from the hospital yesterday for CHF, presents to the ER today brought in by EMS because family found him aphasic, right sided facial droop, right sided weakness, and states that he was last seen normal at 2:30 PM. Patient is somewhat disoriented, difficult to obtain history from him. He follows some commands. He is not able to lift up his right leg from the bed, is having some right pronator drift of the upper extremity. Stroke alert was called in the field. Modifying Factors: None Associated Signs & Symptoms: Stroke alert, right sided weakness, aphasia Risk Factors: Elderly, CHF, multiple medical issues, atrial fibrillation PFSH Past Medical History Heart Rhythm Problems: Yes (AFIB) Cancer: Yes (hx of prostate cancer) Cardiovascular Problems: No High Cholesterol: Yes Chest Pain: No Congestive Heart Failure: Yes Cerebrovascular Accident: No Diabetes: No Endocrine: No GERD: No Genitourinary: No Hepatitis: No Hiatal Hernia: No Hypertension: Yes Immune Disorder: No Musculoskeletal: No Neurologic: Yes Psychiatric: No Reproductive: No Respiratory: No Migraines: No Radiation Therapy: Yes Seizures: No Thyroid Disease: No Ulcer: No Past Surgical History Abdominal Surgery: Yes (hernia about 2 years ago) Cardiac Surgery: No Ear Surgery: No Endocrine Surgery: No Eye Surgery: Yes (right eye cataract surgery) Genitourinary Surgery: No Oral Surgery: Yes (removal of left cataract) Pacemaker: No Thoracic Surgery: No Other Surgery: Yes (BACK ) Social History Alcohol Use: No Tobacco Use: No Substance Use: No Allergies-Medications (Allergen,Severity, Reaction): Coded Allergies: No Known Allergies (Verified , 12/27/08) Reported Meds & Prescriptions Reported Meds & Active Scripts Active Lisinopril 5 Mg Tab 2.5 Mg PO DAILY Metoprolol Succinate ER 24 HR (Metoprolol Succinate) 25 Mg Tab 12.5 Mg PO DAILY Klor-Con 10 (Potassium Chloride) 10 Meq Tab 10 Meq PO Q12HR Furosemide 40 Mg Tab 40 Mg PO DAILY Atorvastatin (Atorvastatin Calcium) 80 Mg Tab 80 Mg PO HS Aspirin EC (Aspirin) 81 Mg Tabdr 81 Mg PO DAILY Norvasc (Amlodipine Besylate) 5 Mg Tab 5 Mg PO DAILY Walker with Front Wheels (Device) 1 Mis Mis 1 Ea .ROUTE DIRECTED Review of Systems ROS Limitations: Altered Mental Status Physical Exam Narrative GENERAL: Elderly white male patient who is currently awake, alert, disoriented and not able to give further history. Follow some directions. Oriented 2, does not know where he is. SKIN: Focused skin assessment warm/dry. HEAD: Atraumatic. Normocephalic. EYES: Pupils equal and round. No scleral icterus. No injection or drainage. ENT: No nasal bleeding or discharge. Mucous membranes pink and moist. NECK: Trachea midline. No JVD. CARDIOVASCULAR: Irregularly irregular. RESPIRATORY: No accessory muscle use. Clear to auscultation. Breath sounds equal bilaterally. GASTROINTESTINAL: Abdomen soft, non-tender, nondistended. Hepatic and splenic margins not palpable. MUSCULOSKELETAL: No obvious deformities. No clubbing. No cyanosis. No edema. NEUROLOGICAL: Awake and alert, disoriented. Aphasic. Right sided weakness with right arm pronator drift. PSYCHIATRIC: Appropriate mood and affect; insight and judgment normal. Data Data Last Documented VS Vital Signs Date Time Temp Pulse Resp B/P Pulse Ox O2 Delivery O2 Flow Rate FiO2 10/03/16 17:49 68 18 162/72 97 Room Air 10/03/16 17:34 2 Orders Diet Npo (10/03/16 Dinner) Activity Bed Rest (10/03/16 ) Electrocardiogram (10/03/16 ) I-Stat Creatinine (10/03/16 17:18) I-Stat Profile (10/03/16 17:18) Prothrombin Time / Inr (Pt) (10/03/16 17:18) Act Partial Throm Time (Ptt) (10/03/16 17:18) Complete Blood Count With Diff (10/03/16 17:18) Fibrinogen (10/03/16 17:18) Creatine Kinase (Cpk) (10/03/16 17:18) Troponin I (10/03/16 17:18) Ua Includes Microscopic (10/03/16 17:18) Drug Screen, Random Urine (10/03/16 17:18) Type And Screen (10/03/16 17:18) Ct Brain W/O Iv Contrast(Rout) (10/03/16 ) Blood Glucose (10/03/16 17:18) Ecg Monitoring (10/03/16 17:18) Neuro Checks Q2HX12,Q4H (10/03/16 17:18) Nursing Bedside Swallow Assess .ONCE (10/03/16 17:18) Iv Access Insert/Monitor (10/03/16 17:18) NPO (10/03/16 17:18) Oximetry (10/03/16 17:18) Oxygen Administration (10/03/16 17:18) Sodium Chlor 0.9% 1000 Ml Inj (Ns 1000 M (10/03/16 17:18) Resp Oxygen Avinash C Titrat 1-4 L (10/03/16 17:18) Cath For Specimen (10/03/16 17:18) Lactic Acid (10/03/16 17:43) Aspirin (Aspirin) (10/03/16 18:00) Metoprolol Tartrate Inj (Lopressor Inj) (10/03/16 18:00) CKMB (10/03/16 17:15) CKMB% (10/03/16 17:15) Admit Order (Ed Use Only) (10/03/16 18:12) Labs Laboratory Tests Test 10/03/16 17:15 White Blood Count 6.7 TH/MM3 Red Blood Count 3.05 MIL/MM3 Hemoglobin 10.1 GM/DL Bedside Hemoglobin 8.8 G/DL Hematocrit 29.7 % Bedside Hematocrit 26.0 % Mean Corpuscular Volume 97.7 FL Mean Corpuscular Hemoglobin 33.0 PG Mean Corpuscular Hemoglobin 33.8 % Concent Red Cell Distribution Width 14.6 % Platelet Count 137 TH/MM3 Mean Platelet Volume 10.0 FL Neutrophils (%) (Auto) 70.3 % Lymphocytes (%) (Auto) 11.4 % Monocytes (%) (Auto) 14.7 % Eosinophils (%) (Auto) 3.3 % Basophils (%) (Auto) 0.3 % Neutrophils # (Auto) 4.7 TH/MM3 Lymphocytes # (Auto) 0.8 TH/MM3 Monocytes # (Auto) 1.0 TH/MM3 Eosinophils # (Auto) 0.2 TH/MM3 Basophils # (Auto) 0.0 TH/MM3 CBC Comment DIFF FINAL Differential Comment Prothrombin Time 11.2 SEC Prothromb Time International 1.0 RATIO Ratio Activated Partial 26.4 SEC Thromboplast Time Fibrinogen 366 mg/dL Bedside Sodium 141 MMOL/L Bedside Potassium 4.3 MMOL/L Bedside Chloride 109 MMOL/L Bedside Blood Urea Nitrogen 56 MG/DL Bedside Creatinine 2.0 MG/DL Bedside Glucose 97 MG/DL Lactic Acid Level 2.0 mmol/L Total Creatine Kinase 428 U/L Troponin I 0.73 NG/ML Blood Type A POSITIVE Antibody Screen NEGATIVE MDM Medical Decision Making Medical Screen Exam Complete: Yes Emergency Medical Condition: Yes Medical Record Reviewed: Yes Interpretation(s) EKG shows A. fib at a rate of [address]-T changes. Laboratory Tests Test 10/03/16 17:15 Red Blood Count 3.05 MIL/MM3 (4.50-5.90) Hemoglobin 10.1 GM/DL (13.0-17.0) Bedside Hemoglobin 8.8 G/DL (12.0-17.0) Hematocrit 29.7 % (39.0-51.0) Bedside Hematocrit 26.0 % (38.0-51.0) Platelet Count 137 TH/MM3 (150-450) Neutrophils (%) (Auto) 70.3 % (16.0-70.0) Monocytes (%) (Auto) 14.7 % (0.0-8.0) Lymphocytes # (Auto) 0.8 TH/MM3 (1.0-4.8) Monocytes # (Auto) 1.0 TH/MM3 (0-0.9) Bedside Blood Urea Nitrogen 56 MG/DL (8-26) Bedside Creatinine 2.0 MG/DL (0.8-1.3) Bedside Glucose 97 MG/DL (60-95) Total Creatine Kinase 428 U/L (39-308) Troponin I 0.73 NG/ML (0.02-0.05) Last [address] 10/03/16 0000 Signed Impressions: Service Date/Time: Monday, October 03, 2016 17:16 - CONCLUSION: 1. 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 2. Nothing acute. Richard Blas MD Differential Diagnosis Stroke alertrule out acute intracranial bleed versus CVA versus metabolic issues versus dysrhythmias Narrative Course EKG did not show acute dysrhythmias. CT of the brain is negative. Case had been discussed with Dr. CROUCH and he states that after further assessments, he does not feel that the patient is a good candidate for TPA, downtime over 3 hours, age, and elevated blood pressure. At this point, patient was given aspirin per his direction and admitted medically. Case was discussed with family practice resident service for admission. Diagnosis Primary Impression: Stroke Admitting Information Admitting Physician Requests: Admit Stoney Watts MD Oct 03, 2016 18:23
[2016-10-03 18:26] VITALS: BP 171/79; PULSE 82; RESP 18; O2SAT 99
[2016-10-03 18:35] LABS: CKMB 8.6 NG/ML (0.5-3.6)
--- NOTE | 2016-10-03 18:36 | HHI.HP ---
[facility] Service Family Medicine Primary Care Physician Mendel Squires MD, PhD Admission Diagnosis CVA/right sided weakness and aphasia/stroke alert Diagnoses: International Travel<30 Days: No Contact w/Intl Traveler<30days: No Known Affected Area: No History of Present Illness Patient is an 89yo male with PMH significant for CHF, A. fib, HTN. Presented due to acute onset of right-sided weakness and difficulty with speech. Patient was discharged from the hospital at 11 AM today. He was previously admitted on 09/30/16 due to SOB and altered mental status and found to have a CHF exacerbation that was treated with diuresis. He was also treated for pneumonia x a 3 day course. Per report from family, patient was discharged in stable condition and was very energetic and happy to be going home. He went home and took a nap at around 2:30 PM at which time he was reportedly seen as normal. He then was up at around 4:00 PM when his daughter saw him struggling to get out of bed. His daughter then saw that he had right-sided weakness of upper or lower extremity as well as difficulty with speech. -Patient is unable to provide any further detail of why he is here or what happened. However he does follow commands and is able to shake his head yes or now. Review of Systems ROS Limitations: Clinical Condition Past Family Social History Past Medical History Hypertension Atrial fibrillation CHF with EF of 25-30% Myelodysplasia CKD Prostate cancer, in complete remission for 20 years Past Surgical History Prostate surgery: 20 years ago Hernia surgery 2 years ago Reported Medications Reported Meds & Active Scripts Active Lisinopril 5 Mg Tab 2.5 Mg PO DAILY Metoprolol Succinate ER 24 HR (Metoprolol Succinate) 25 Mg Tab 12.5 Mg PO DAILY Klor-Con 10 (Potassium Chloride) 10 Meq Tab 10 Meq PO Q12HR Furosemide 40 Mg Tab 40 Mg PO DAILY Atorvastatin (Atorvastatin Calcium) 80 Mg Tab 80 Mg PO HS Aspirin EC (Aspirin) 81 Mg Tabdr 81 Mg PO DAILY Norvasc (Amlodipine Besylate) 5 Mg Tab 5 Mg PO DAILY Walker with Front Wheels (Device) 1 Mis Mis 1 Ea .ROUTE DIRECTED Allergies: Coded Allergies: No Known Allergies (Verified , 12/27/08) Family History Mother and father: uncertain No major illnesses reported Social History Quit smoking in his 50's, smoked for 30 years Alcohol use: none Drug use: none Was previously living independently Significant other in a jail Daughters and son and law help to take care of him Physical Exam Vital Signs Vital Signs Date Time Temp Pulse Resp B/P Pulse Ox O2 Delivery O2 Flow Rate FiO2 10/03/16 18:26 82 18 171/79 99 Nasal Cannula 2 10/03/16 17:49 68 18 162/72 97 Room Air 10/03/16 17:34 18 95 Nasal Cannula 2 10/03/16 17:34 96 Nasal Cannula 2 Physical Exam GENERAL: This is a well-nourished, well-developed patient, in no apparent distress. Laying comfortably in bed. Makes good eye contact and is able to follow commands. SKIN: No rashes, ecchymoses or lesions. Cool and dry. EYES: Pupils equal round and reactive. Extraocular motions intact. No scleral icterus. No injection or drainage. ENT: Nose without bleeding, purulent drainage. Throat without erythema, tonsillar hypertrophy or exudate. Uvula midline. Airway patent. NECK:No JVD or lymphadenopathy. CARDIOVASCULAR: Regular rate and rhythm without murmurs, gallops, or rubs. RESPIRATORY: Good air movement bilaterally but with coarse breath sounds. No wheezes. GASTROINTESTINAL: Abdomen soft, non-tender, nondistended. No hepato-splenomegaly , or palpable masses. No guarding. MUSCULOSKELETAL: Extremities without clubbing, cyanosis, or edema. No calf tenderness. NEUROLOGICAL: Awake and alert. CN II, III, IV,, XI, XII intact. Unable to asses V due to poor communication. 4/5 Upper and LE on right. 5/5 Upper and LE on left. Able to articulate some words clearly. Does have difficulty answering questions with words but is able to shake head yes or no. Appears to understand and follow commands. Laboratory Laboratory Tests Test 10/03/16 17:15 White Blood Count 6.7 Red Blood Count 3.05 Hemoglobin 10.1 Bedside Hemoglobin 8.8 Hematocrit 29.7 Bedside Hematocrit 26.0 Mean Corpuscular Volume 97.7 Mean Corpuscular Hemoglobin 33.0 Mean Corpuscular Hemoglobin 33.8 Concent Red Cell Distribution Width 14.6 Platelet Count 137 Mean Platelet Volume 10.0 Neutrophils (%) (Auto) 70.3 Lymphocytes (%) (Auto) 11.4 Monocytes (%) (Auto) 14.7 Eosinophils (%) (Auto) 3.3 Basophils (%) (Auto) 0.3 Neutrophils # (Auto) 4.7 Lymphocytes # (Auto) 0.8 Monocytes # (Auto) 1.0 Eosinophils # (Auto) 0.2 Basophils # (Auto) 0.0 CBC Comment DIFF FINAL Differential Comment Prothrombin Time 11.2 Prothromb Time International 1.0 Ratio Activated Partial 26.4 Thromboplast Time Fibrinogen 366 Bedside Sodium 141 Bedside Potassium 4.3 Bedside Chloride 109 Bedside Blood Urea Nitrogen 56 Bedside Creatinine 2.0 Bedside Glucose 97 Lactic Acid Level 2.0 Total Creatine Kinase 428 Creatine Kinase MB 8.6 Creatine Kinase MB % 2.0 Troponin I 0.73 Blood Type A POSITIVE Antibody Screen NEGATIVE Result Diagram: 10/03/16 1715 Imaging Last Impressions Head CT 10/03/16 0000 Signed Impressions: Service Date/Time: Thursday, October 03, 2016 17:16 - CONCLUSION: 1. 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 2. Nothing acute. Richard Blas MD Assessment and Plan Assessment and Plan 89-year-old male with history of A. fib, HTN, CHF. Admitted for ischemic stroke vs TIA Code Status Full Problem List: (1) Stroke Status: Acute Plan: Acute onset of neurological symptoms that are focal to the right side. Based on discussion with the ED physician, symptoms of right-sided weakness have improved since being in the ED. No focal deficits on limited cranial nerve evaluation. Mild weakness on right upper and lower extremity motor strength. Etiology likely due to afib as he is not on any form of anticoagulation. -Head CT negative for acute bleed -MRI and MRA ordered -PT/OT/ST consulted -Lipid panel and A1c ordered -Head of bed flat and permissive HTN -cardiac telemetry and neuro checks Neurosurgery consulted: Appreciate recommendations * Per discussion ED physician, not a candidate for TPA Medications: * Aspirin 81mg * ADDED Plavix 75mg daily * Atorvastatin 80mg * HOLD HOME amlodipine, lisinopril until permissive HTN is discontinued (2) CHF (congestive heart failure) Status: Chronic Plan: Recently admitted for CHF exacerbation where he was found to have an EF of 25-30%. Cardiology evaluation during that time stated that pt was a poor ICD candidate. -Lasix and KCL on hold until permissive HTN is discontinued (3) Elevated troponin Status: Acute Plan: Elevated troponin was found on last admission on 09/30. Attributed secondary to CHF and CKD. Additionally patient declined ischemic workup at that time. Troponin was elevated to high of 1.96. RBBB present on prior EKG -Most recent troponin was down to 0.73 with CK-MB at 2% -Will trend troponin and CKMB (4) A-fib Status: Chronic Plan: Rate controlled with metoprolol. HAS-BLED score of 3pts due to aspirin medication, age >65, and stroke. -continue home metoprolol XL 12.5mg daily -Recommend alternative to anticoagulation should be considered. Will need to be discussed with patient and primary team. 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 Likely contributing to symptoms of anemia. H&H stable since last admission (6) Nutrition, metabolism, and development symptoms Status: Acute Plan: Diet: NPO but pass swallow test Fluids: none, caution with CHF Electrolytes: unremarkable. DVT PPX: SCDs GI PPX: not indicated Physician Certification 2 Midnight Certification Type: Admission for Inpatient Services Order for Inpatient Services The services are ordered in accordance with Medicare regulations or non- Medicare payer requirements, as applicable. In the case of services not specified as inpatient-only, they are appropriately provided as inpatient services in accordance with the 2-midnight benchmark. Estimated LOS (days): 3 days is the estimated time the patient will need to remain in the hospital, assuming treatment plan goals are met and no additional complications. Post-Hospital Plan: Not yet determined Carolina High MD R2 Oct 03, 2016 18:36
[2016-10-03 18:40] LABS: AMPHETAMINE, URINE NEG (NEG); BARBITURATES, URINE NEG (NEG); COCAINE, URINE NEG (NEG)
[2016-10-03 18:44] LABS: BLOOD, URINE NEG (NEG); GLUCOSE,URINE NEG (NEG); HYALINE CAST, URINE 2 /lpf (RARE); KETONE, URINE NEG (NEG); NITRITE,URINE NEG (NEG); URINE COLOR YELLOW (YELLW/STRAW)
[2016-10-03 19:00] VITALS: BP 168/101; PULSE 62; RESP 18; O2SAT 96
[2016-10-03] MEDS ORDERED: ENALAPRILAT 1.25 MG/ML VIAL IV PRN (19:15)
[2016-10-03] MEDS ORDERED: SODIUM CHLORIDE 0.9% FLUSH 10 ML FLUSH IV FLUSH PRN (19:15)
[2016-10-03] MEDS ORDERED: GLUCAGON 1 MG/ML VIAL IM/SQ PRN (19:15)
[2016-10-03] MEDS ORDERED: DEXTROSE 50% IN WATER 50 ML VIAL(D50) IV PUSH PRN (19:15)
[2016-10-03] MEDS ORDERED: HEPARIN SODIUM - SQ 10,000 UNITS/ML VIAL SQ SCH (20:00)
[2016-10-03 20:05] VITALS: BP 182/84; PULSE 72; RESP 17; TEMP 96.6; O2SAT 96
--- NOTE | 2016-10-03 20:32 | RADRPT ---
EXAM DATE/TIME: 10/03/2016 19:53 [facility] COMPARISON: MRI BRAIN W/O CONTRAST, September 30, 2016, 16:23. INDICATIONS : Right sided weakness. MEDICAL HISTORY : Carcinoma, prostate. SURGICAL HISTORY : Inguinal hernia repair. ENCOUNTER: Initial ACUITY: 1 day PAIN SCORE: 0/10 LOCATION: cranial TECHNIQUE: Multiplanar, multisequence MRI of the brain was performed without contrast. FINDINGS: CEREBRUM: There is cerebral atrophy. High flair abnormality in the left frontal lobe which demonstrates associa grupo effusion. Old lacunar infarcts in the basal ganglia. The ventricles are normal for age. No evide nce of midline shift, mass lesion or hemorrhage. No extraaxial fluid collections are seen. The pitu itary gland and suprasellar cistern are normal in configuration. WHITE MATTER: Scattered T2 signal abnormalities are seen in the white matter. POSTERIOR FOSSA: The cerebellum and brainstem are intact. The 4th ventricle is midline. The cerebellopontine angle is unremarkable. The cerebellar tonsils are normal in position. DIFFUSION IMAGING: No focal areas of restricted diffusion are seen. No evidence of acute infarction. EXTRACRANIAL: The visualized portions of the orbits and paranasal sinuses are unremarkable. CONCLUSION: Acute infarct high left frontal lobe. No midline shift or mass effect. 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 This report was verified electronically.
--- NOTE | 2016-10-03 20:34 | RADRPT ---
EXAM DATE/TIME: 10/03/2016 19:53 [facility] COMPARISON: No previous studies available for comparison. INDICATIONS : Right sided weakness. MEDICAL HISTORY : Carcinoma, prostate. SURGICAL HISTORY : Inguinal hernia repair. ENCOUNTER: Initial ACUITY: 1 day PAIN SCORE: 0/10 LOCATION: cranial Please note a normal MRA of the brain does not entirely exclude the possibility of a small aneurysm, nor the possibility of distal intracranial vessel disease. TECHNIQUE: 3D time of flight MRA was performed. Source images, multiplanar STS MIP, and 3D volume MIP reconstru ctions were reviewed. FINDINGS: There is excellent visualization of the major intracranial arteries out to the second-order branch ve ssels. There is no evidence for aneurysm, vessel truncation or stenosis, and no evidence for vascula r malformation. Anterior communicating artery is seen. Posterior communicating arteries are not seen. Dominant right vertebral artery. Left vertebral artery not seen. CONCLUSION: No stenosis or aneurysm. Normal variants as described above. Dejuan Nielson MD on October 03, 2016 at 20:30 Board Certified Radiologist. This report was verified electronically.
[2016-10-03 20:43] VITALS: BP 159/76; PULSE 61; O2SAT 96
[2016-10-03] MEDS ORDERED: PRAVASTATIN SOD 40 MG TAB PO SCH (21:00)
[2016-10-03] MEDS: ATORVASTATIN 80 MG TAB PO SCH (21:00)
[2016-10-03] MEDS: SODIUM CHLORIDE 0.9% FLUSH 10 ML FLUSH IV FLUSH SCH (21:00)
[2016-10-03] MEDS: INSULIN ASPART SUPPLEMENTAL SCALE SQ SCH (21:35)
[2016-10-04] VITALS (8 sets, daily range): BP systolic 144–192; BP diastolic 58–98; PULSE 60–75; RESP 16–21; TEMP 95.7–98.5; O2SAT 93–99
[2016-10-04 01:59] LABS: CKMB 8.7 NG/ML (0.5-3.6)
[2016-10-04 05:57] LABS: BASOPHIL % 0.3 % (0.0-2.0); EOSINOPHIL # 0.2 TH/MM3 (0-0.4); EOSINOPHIL % 3.6 % (0.0-4.0); HEMO FLAGS DIFF FINAL; LYMPH % 10.7 % (9.0-44.0); LYMPHOCYTE # 0.6 TH/MM3 (1.0-4.8); MEAN CELL VOLUME 100.7 FL (80.0-100.0); MEAN CORPUSCULAR HEMOGLOBIN 34.9 PG (27.0-34.0); MEAN CORPUSCULAR HGB CONC 34.7 % (32.0-36.0); MONO % 12.1 % (0.0-8.0); NEUT % 73.3 % (16.0-70.0); PLATELET COUNT 136 TH/MM3 (150-450); RED BLOOD COUNT 3.08 MIL/MM3 (4.50-5.90); RED CELL DISTRIBUTION WIDTH 14.2 % (11.6-17.2); WHITE BLOOD COUNT 5.5 TH/MM3 (4.0-11.0)
[2016-10-04 06:29] LABS: HDL CHOLESTEROL 46.9 MG/DL (40.0-60.0)
[2016-10-04 06:48] LABS: CKMB 9.4 NG/ML (0.5-3.6)
[2016-10-04] MEDS: INSULIN ASPART SUPPLEMENTAL SCALE SQ SCH ×2 (07:00→21:00)
[2016-10-04] MEDS ORDERED: PILL SPLITTER OTHER PRN (09:00)
[2016-10-04] MEDS: METOPROLOL SUCCINATE 25 MG EXTENDED RELEASE TAB PO SCH (09:00)
[2016-10-04] MEDS: SODIUM CHLORIDE 0.9% FLUSH 10 ML FLUSH IV FLUSH SCH ×2 (09:00→21:00)
[2016-10-04] MEDS: CLOPIDOGREL 75 MG TAB PO SCH (10:40)
[2016-10-04] MEDS: ASPIRIN 81 MG CHEW TAB PO SCH (10:40)
--- NOTE | 2016-10-04 12:21 | RADRPT ---
EXAM DATE/TIME: 10/04/2016 11:04 [facility] COMPARISON: CHEST SINGLE AP, October 01, 2016, 4:19. INDICATIONS : Evaluate for cough and possible aspiration. MEDICAL HISTORY : None. SURGICAL HISTORY : None. ENCOUNTER: Initial ACUITY: 1 day PAIN SCORE: 0/10 LOCATION: Bilateral chest FINDINGS: The cardiac silhouette is enlarged. Aortic calcifications are present. The lungs are grossly clear. There is some increased density seen over the lateral right upper chest which is secondary to the s capula. The lungs appear clear. A significant effusion is not seen. CONCLUSION: Cardiomegaly. Vern Farnsworth MD on October 04, 2016 at 12:13 Board Certified Radiologist. This report was verified electronically.
--- NOTE | 2016-10-04 14:00 | EKG ---
Date Performed: 10/03/2016 Time Performed: 22:45:53 PTAGE: 89 years EKG: ATRIAL FIBRILLATION WITH ABERRANT CONDUCTION OR VENTRICULAR PREMATURE COMPLEXES RIGHT BUNDL E BRANCH BLOCK LEFT ANTERIOR FASCICULAR BLOCK POSSIBLE LEFT VENTRICULAR HYPERTROPHY Possible interior ND Largely unchanged from prior tracing ABNORMAL ECG PREVIOUS TRACING : 10/03/2016 17.59 DOCTOR: Pedro Fragoso Interpretating Date/Time 10/04/2016 13:58:56
--- NOTE | 2016-10-04 14:00 | EKG ---
Date Performed: 10/03/2016 Time Performed: 17:59:35 PTAGE: 89 years EKG: ATRIAL FIBRILLATION RIGHT BUNDLE BRANCH BLOCK LEFT ANTERIOR FASCICULAR BLOCK POSSIBLE LEFT VENTRICULAR HYPERTROPHY Possible interior [place] Largely unchanged from prior tracing ABNORMAL ECG PREVIOUS TRACING : 09/30/2016 22.34 DOCTOR: Pedro Fragoso Interpretating Date/Time 10/04/2016 13:58:36
[2016-10-04] MEDS: APIXABAN 2.5 MG TABLET PO SCH ×2 (15:56→22:35)
[2016-10-04] MEDS ORDERED: guaiFENesin SOLUTION 200 MG/10 ML CUP PO PRN (16:45)
--- NOTE | 2016-10-04 16:56 | HHI.HP ---
[facility] Service Family Medicine Primary Care Physician Mendel Squires MD, PhD Admission Diagnosis CVA/right sided weakness and aphasia/stroke alert Diagnoses: (1) Stroke Diagnosis: Principal (2) CHF (congestive heart failure) Diagnosis: Principal (3) Elevated troponin Diagnosis: Principal (4) A-fib Diagnosis: Principal (5) Myelodysplasia (myelodysplastic syndrome) Diagnosis: Principal (6) Nutrition, metabolism, and development symptoms Diagnosis: Principal International Travel<30 Days: No Contact w/Intl Traveler<30days: No Known Affected Area: No History of Present Illness Mr Mott is an 89yo male with PMH significant for CHF, A. fib, HTN. Presented due to acute onset of right-sided weakness and difficulty with speech. Patient was discharged from the hospital at 11 AM. He was previously admitted on 09/30/16 due to SOB and altered mental status and found to have a CHF exacerbation that was treated with diuresis. He was also treated for pneumonia x a 3 day course. Per report from family, patient was discharged in stable condition and was very energetic and happy to be going home. He went home and took a nap at around 2:30 PM at which time he was reportedly seen as normal. He then was up at around 4:00 PM when his daughter saw him struggling to get out of bed. His daughter then saw that he had right-sided weakness of upper and lower extremity as well as difficulty with speech. -Patient is unable to provide any further detail of why he is here or what happened. However he does follow commands and is able to shake his head yes or no. Today he was able to speak his name and is able to take thickened liquids. He was moving his right arm and hand and was able to walk with PT today per his family. Review of Systems ROS Limitations: Clinical Condition, Speech Impaired Past Family Social History Past Medical History Hypertension Atrial fibrillation CHF with EF of 25-30% Myelodysplasia CKD Prostate cancer, in complete remission for 20 years Past Surgical History Prostate surgery: 20 years ago Hernia surgery 2 years ago Allergies: Coded Allergies: No Known Allergies (Verified , 12/27/08) Family History Mother and father: uncertain No major illnesses reported Social History Quit smoking in his 50's, smoked for 30 years Alcohol use: none Drug use: none Was previously living independently Significant other in a custodial Daughters and son and law help to take care of him Physical Exam Vital Signs Vital Signs Date Time Temp Pulse Resp B/P Pulse Ox O2 Delivery O2 Flow Rate FiO2 10/04/16 12:00 95.7 65 20 154/58 96 10/04/16 08:00 96.6 75 21 147/75 97 10/04/16 04:00 97.3 69 16 192/88 99 10/04/16 00:00 97.5 60 16 160/98 98 10/03/16 20:43 61 159/76 96 2 10/03/16 20:05 96.6 72 17 182/84 96 10/03/16 19:00 62 18 168/101 96 Nasal Cannula 2 10/03/16 18:26 82 18 171/79 99 Nasal Cannula 2 10/03/16 17:49 68 18 162/72 97 Room Air 10/03/16 17:34 18 95 Nasal Cannula 2 10/03/16 17:34 96 Nasal Cannula 2 Physical Exam GENERAL: This is a well-nourished, well-developed patient, in no apparent distress. Laying comfortably in bed. Makes good eye contact and is able to follow commands and say his name today. SKIN: No rashes, ecchymoses or lesions. Cool and dry. EYES: Pupils equal round and reactive. Extraocular motions intact. No scleral icterus. No injection or drainage. ENT: Nose without bleeding, purulent drainage. . Airway patent. NECK:No JVD or lymphadenopathy. CARDIOVASCULAR: Regular rate and rhythm without murmurs, gallops, or rubs. RESPIRATORY: Good air movement bilaterally but with coarse breath sounds. No wheezes. GASTROINTESTINAL: Abdomen soft, non-tender, nondistended. No hepato-splenomegaly , or palpable masses. No guarding. MUSCULOSKELETAL: Extremities without clubbing, cyanosis, or edema. No calf tenderness. NEUROLOGICAL: Awake and alert. CN II, III, IV,, XI, XII intact. Unable to asses V due to poor communication. 4/5 Upper and LE on right. 5/5 Upper and LE on left. Able to articulate some words clearly. Does have difficulty answering questions with words but is able to shake head yes or no. Appears to understand and follow commands. Laboratory Laboratory Tests Test 10/03/16 10/03/16 10/04/16 10/04/16 17:15 17:50 00:47 05:02 White Blood Count 6.7 5.5 Red Blood Count 3.05 3.08 Hemoglobin 10.1 10.7 Bedside Hemoglobin 8.8 Hematocrit 29.7 31.0 Bedside Hematocrit 26.0 Mean Corpuscular Volume 97.7 100.7 Mean Corpuscular Hemoglobin 33.0 34.9 Mean Corpuscular Hemoglobin 33.8 34.7 Concent Red Cell Distribution Width 14.6 14.2 Platelet Count 137 136 Mean Platelet Volume 10.0 9.7 Neutrophils (%) (Auto) 70.3 73.3 Lymphocytes (%) (Auto) 11.4 10.7 Monocytes (%) (Auto) 14.7 12.1 Eosinophils (%) (Auto) 3.3 3.6 Basophils (%) (Auto) 0.3 0.3 Neutrophils # (Auto) 4.7 4.0 Lymphocytes # (Auto) 0.8 0.6 Monocytes # (Auto) 1.0 0.7 Eosinophils # (Auto) 0.2 0.2 Basophils # (Auto) 0.0 0.0 CBC Comment DIFF FINAL DIFF FINAL Differential Comment Prothrombin Time 11.2 Prothromb Time International 1.0 Ratio Activated Partial 26.4 Thromboplast Time Fibrinogen 366 Bedside Sodium 141 Bedside Potassium 4.3 Bedside Chloride 109 Bedside Blood Urea Nitrogen 56 Bedside Creatinine 2.0 Bedside Glucose 97 Lactic Acid Level 2.0 Total Creatine Kinase 428 374 382 Creatine Kinase MB 8.6 8.7 9.4 Creatine Kinase MB % 2.0 2.3 2.5 Troponin I 0.73 0.68 0.57 Blood Type A POSITIVE Antibody Screen NEGATIVE Urine Color YELLOW Urine Turbidity CLEAR Urine pH 5.0 Urine Specific [place] 1.012 Urine Protein TRACE Urine Glucose (UA) NEG Urine Ketones NEG Urine Occult Blood NEG Urine Nitrite NEG Urine Bilirubin NEG Urine Urobilinogen LESS THAN 2.0 Urine Leukocyte Esterase NEG Urine Amorphous Sediment MOD Urine Hyaline Casts 2 Microscopic Urinalysis Comment Urine Opiates Screen NEG Urine Barbiturates Screen NEG Urine Amphetamines Screen NEG Urine Benzodiazepines Screen NEG Urine Cocaine Screen NEG Urine Cannabinoids Screen NEG Triglycerides Level 83 Cholesterol Level 118 LDL Cholesterol 55 HDL Cholesterol 46.9 Cholesterol/HDL Ratio 2.51 Result Diagram: 10/04/16 0502 Imaging Last Impressions Head CT 10/03/16 0000 Signed Impressions: Service Date/Time: Monday, October 03, 2016 17:16 - CONCLUSION: 1. 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 2. Nothing acute. Richard Blas MD Assessment and Plan Assessment and Plan 89-year-old male with history of A. fib, HTN, CHF. Admitted for ischemic stroke vs TIA Problem List: (1) Stroke Status: Acute Plan: Acute onset of neurological symptoms that are focal to the right side. Based on discussion with the ED physician, symptoms of right-sided weakness have improved since being in the ED and in hospital. No focal deficits on limited cranial nerve evaluation. Mild weakness on right upper and lower extremity motor strength. Etiology likely due to afib as he is not on any form of anticoagulation. There was an extensive discussion with her medical team in front of his daughter on his previous hospitalization and he was set on no anticoagulation as he had a prior GI bleed. -Head CT negative for acute bleed -MRI and MRA ordered -PT/OT/ST consulted -Lipid panel and A1c ordered -Head of bed flat x 24 hours and permissive HTN -cardiac telemetry and neuro checks Neurosurgery consulted: Appreciate recommendations * Per discussion ED physician, not a candidate for TPA Medications: * Aspirin 81mg * ADDED Plavix 75mg daily, he will start eliquis * Atorvastatin 80mg * HOLD HOME amlodipine, lisinopril until permissive HTN is discontinued (2) CHF (congestive heart failure) Status: Chronic Plan: Recently admitted for CHF exacerbation where he was found to have an EF of 25-30%. Cardiology evaluation during that time stated that pt was a poor ICD candidate. -Lasix and KCL on hold until permissive HTN is discontinued (3) Elevated troponin Status: Acute Plan: Elevated troponin was found on last admission on 09/30. Attributed secondary to CHF and CKD. Additionally patient declined ischemic workup at that time. Troponin was elevated to high of 1.96. RBBB present on prior EKG -Most recent troponin was down to 0.73 with CK-MB at 2% -Will trend troponin and CKMB (4) A-fib Status: Chronic Plan: Rate controlled with metoprolol. HAS-BLED score of 3pts due to aspirin medication, age >65, and stroke. -continue home metoprolol XL 12.5mg daily (5) Myelodysplasia (myelodysplastic syndrome) Status: Chronic Plan: Chronic. Likely contributing to symptoms of anemia. H&H stable since last admission (6) Nutrition, metabolism, and development symptoms Status: Acute Plan: Diet: thickened liquids Fluids: none, caution with CHF Electrolytes: unremarkable. DVT PPX: SCDs GI PPX: not indicated Physician Certification 2 Midnight Certification Type: Admission for Inpatient Services Order for Inpatient Services The services are ordered in accordance with Medicare regulations or non- Medicare payer requirements, as applicable. In the case of services not specified as inpatient-only, they are appropriately provided as inpatient services in accordance with the 2-midnight benchmark. Estimated LOS (days): 3 3 days is the estimated time the patient will need to remain in the hospital, assuming treatment plan goals are met and no additional complications. Post-Hospital Plan: Not yet determined Problem Qualifiers (1) Stroke: Qualified Code: I63.30 - Cerebrovascular accident (CVA) due to thrombosis of cerebral artery (2) CHF (congestive heart failure): (3) A-fib: Qualified Code: I48.0 - Paroxysmal atrial fibrillation Deena Calvo MD Oct 04, 2016 16:56
--- NOTE | 2016-10-04 21:53 | RADRPT ---
EXAM DATE/TIME: 10/04/2016 20:01 [facility] COMPARISON: No previous studies available for comparison. INDICATIONS : Cerebrovascular accident. MEDICAL HISTORY : Hypercholesterolemia. Congestive heart failure. Carcinoma, prostate. Afib. Hypertension. SURGICAL HISTORY : Right cataract removal. Hernia repair. Ruptured disc repair. Back surgery. Radiation therapy. ENCOUNTER: Initial ACUITY: 1 day PAIN SCORE: 0/10 LOCATION: Bilateral neck PEAK SYSTOLIC VELOCITIES (cm/sec): ICA/CCA RATIO: Right: 1.4 Left: 1.0 ICA: Right: 133 Left: 106 CCA: Right: 97 Left: 102 ECA: Right: 81 Left: 126 VERTEBRAL: Right: 83 antegrade Left: 36 antegrade Elevated flow velocities and ICA/CCA ratios have been found to correlate with increased degrees of vessel stenosis, calculated as percentage of diameter relative to a normal segment of distal ICA/CCA FINDINGS: RIGHT CAROTID: There is a mild amount of shadowing plaque in the common and internal carotid artery.. The waveforms are within normal limits. LEFT CAROTID: There is prominent shadowing and non-shadowing plaque in the proximal internal carotid artery. The s pectral waveform, however, is not significantly widened in the mid or distal internal carotid artery VERTEBRAL ARTERIES: Antegrade flow is seen in both vertebral arteries. CONCLUSION: Bilateral plaque formation in the internal carotid arteries, with hemodynamic profile characteristic of less than 50% stenosis. Wilbur Ridley MD on October 04, 2016 at 21:50 Board Certified Radiologist. This report was verified electronically.
[2016-10-04] MEDS: ATORVASTATIN 80 MG TAB PO SCH (22:38)
[2016-10-05] VITALS (12 sets, daily range): BP systolic 138–183; BP diastolic 64–81; PULSE 58–77; RESP 14–20; TEMP 95.4–99.2; O2SAT 92–98
[2016-10-05] MEDS ORDERED: ATROPINE SULFATE 1 MG/10 ML SYRINGE IV ONE (05:00)
[2016-10-05] MEDS ORDERED: EPINEPHrine HCL (1:10,000) 1 MG/10 ML SYRINGE IV ONE (05:00)
[2016-10-05] MEDS: INSULIN ASPART SUPPLEMENTAL SCALE SQ SCH ×4 (05:55→23:00)
[2016-10-05 05:59] LABS: MEAN CELL VOLUME 97.8 FL (80.0-100.0); MEAN CORPUSCULAR HEMOGLOBIN 33.6 PG (27.0-34.0); MEAN CORPUSCULAR HGB CONC 34.4 % (32.0-36.0); PLATELET COUNT 151 TH/MM3 (150-450); RED BLOOD COUNT 3.38 MIL/MM3 (4.50-5.90); RED CELL DISTRIBUTION WIDTH 13.8 % (11.6-17.2); REVIEW FLAG FINAL; WHITE BLOOD COUNT 5.6 TH/MM3 (4.0-11.0)
[2016-10-05 06:00] LABS: BICARBONATE 25.7 MEQ/L (21.0-32.0); MAGNESIUM 2.5 MG/DL (1.5-2.5); POTASSIUM 3.9 MEQ/L (3.5-5.1)
[2016-10-05] MEDS: CLOPIDOGREL 75 MG TAB PO SCH (08:58)
[2016-10-05] MEDS: METOPROLOL SUCCINATE 25 MG EXTENDED RELEASE TAB PO SCH (08:58)
[2016-10-05] MEDS: APIXABAN 2.5 MG TABLET PO SCH ×2 (08:58→21:00)
[2016-10-05] MEDS: ASPIRIN 81 MG CHEW TAB PO SCH (08:58)
[2016-10-05] MEDS: SODIUM CHLORIDE 0.9% FLUSH 10 ML FLUSH IV FLUSH SCH (09:00)
[2016-10-05] MEDS: RESP: ALBUTEROL 2.5 MG/3 ML NEB (SCH) NEB ×4 (12:00→23:26)
--- NOTE | 2016-10-05 13:09 | HHI.FPPN ---
Subjective Remarks Patient seen and examined. MELANIA overnight. BP 150-170s/80s. Afebrile. Sister is at the bedside this morning. She reports that patient has been coughing all night and unable to rest because of all the coughing. However patient denies any specific complaints. He was able to ambulate to and from the bathroom with assistance yesterday. (Mirlande Piedra MD R3) Objective Vitals Vital Signs Date Time Temp Pulse Resp B/P Pulse Ox O2 Delivery O2 Flow Rate FiO2 10/05/16 09:38 98 21 10/05/16 08:00 96.6 72 18 162/68 98 10/05/16 04:00 98.0 77 20 180/70 96 10/05/16 00:00 99.2 58 20 170/72 95 10/04/16 21:33 93 21 10/04/16 20:00 98.5 65 20 166/74 94 10/04/16 16:00 95.8 65 19 144/74 94 I/O 10/04/16 10/04/16 10/04/16 10/05/16 10/05/16 10/05/16 07:00 15:00 23:00 07:00 15:00 23:00 Intake Total 100 ml 720 ml 120 ml Output Total 800 ml Balance 100 ml -80 ml 120 ml Intake Oral 100 ml 720 ml 120 ml Output Urine Total 800 ml # Voids 3 2 2 2 # Bowel Movements 0 1 0 0 (Mirlande Piedra MD R3) Result Diagram: 10/05/16 0505 10/05/[address] 10/05/16 1321 Signed Impressions: Service Date/Time: Wednesday, October 05, 2016 13:33 - CONCLUSION: Subacute area of infarction and edema at the left medial frontal lobe. This was identified on the prior MRI examination. No other areas of mass effect/acute infarction are seen. No hemorrhage is seen. Vern Farnsworth MD Chest X-Ray 10/04/16 0000 Signed Impressions: Service Date/Time: Tuesday, October 04, 2016 11:04 - CONCLUSION: Cardiomegaly. Vern Farnsworth MD Carotid Artery Ultrasound 10/04/16 0000 Signed Impressions: Service Date/Time: Tuesday, October 04, 2016 20:01 - CONCLUSION: Bilateral plaque formation in the internal carotid arteries, with hemodynamic profile characteristic of less than 50%% stenosis. Wilbur Ridley MD Head Magnetic Resonance Angiography 10/03/16 0000 Signed Impressions: Service Date/Time: Monday, October 03, 2016 19:53 - CONCLUSION: No stenosis or aneurysm. Normal variants as described above. Dejuan Nielson MD Brain MRI 10/03/16 0000 Signed Impressions: Service Date/Time: Monday, October 03, 2016 19:53 - CONCLUSION: Acute infarct high left frontal lobe. No midline shift or mass effect. Cerebral atrophy and chronic ischemic small vessel vasculopathy Dejuan Nielson MD Objective Remarks GENERAL: This is a well-nourished, well-developed patient, in no apparent distress. Laying comfortably in bed. Makes good eye contact and is able to follow simple commands/ SKIN: UEs with diffuse ecchymosis. EYES: Pupils equal round and reactive. Extraocular motions intact. No scleral icterus. No injection or drainage. ENT: Nose without bleeding, purulent drainage. Airway patent. NECK:No JVD or lymphadenopathy. CARDIOVASCULAR: Regular rate and rhythm without murmurs, gallops, or rubs. RESPIRATORY: Good air movement bilaterally but with coarse breath sounds. No wheezes. GASTROINTESTINAL: Abdomen soft, non-tender, nondistended. No hepato-splenomegaly , or palpable masses. No guarding. MUSCULOSKELETAL: Extremities without clubbing, cyanosis, or edema. No calf tenderness. NEUROLOGICAL: Awake and alert. 4/5 Upper and LE on right. 5/5 Upper and LE on left. Does have difficulty answering questions with words but is able to shake head yes or no. Appears to understand and follow commands. (Mirlande Piedra MD R3) A/P Assessment and Plan 89-year-old male with history of A. fib, HTN, CHF. Admitted for acute ischemic stroke. Discharge Planning Discharge pending clinical improvement; unsure of timeframe. Will likely need SNF placement (Mirlande Piedra MD R3) Attending Attestation Patient seen and examined. Case reviewed and discussed with the resident team. Agree with plan of care as discussed with me and documented in the resident note. (Deena Calvo MD) Problem List: (1) Stroke Status: Acute Plan: Patient with history of atrial fibrillation (patient did not want to be on anticoagulation due to history of GI bleed) who was admitted for acute infarct of left frontal lobe, confirmed by MRI -Head CT negative for acute bleed. -MRA: negative -Carotid u/s: bilateral plaque formation in the ICA, with less than 50% stenosis. -Lipid panel WNL -HbA1c pending -Neurology consulted. Appreciate recommendations * Continue Eliquis, consider d/c Aspirin and Plavix -PT/OT/ST consulted -Cardiac telemetry and neuro checks -Continue Atorvastatin 80mg and Metoprolol 6.25mg po daily (2) CHF (congestive heart failure) Status: Chronic Plan: Recently admitted for CHF exacerbation where he was found to have an EF of 25-30%. Cardiology evaluation during that time stated that pt was a poor ICD candidate. -Resume Lisinopril, Lasix, and KCL (3) Elevated troponin Status: Acute Plan: Elevated troponin was found on last admission on 09/30. Attributed secondary to CHF and CKD. Additionally patient declined ischemic workup at that time. Troponin was elevated to high of 1.96. RBBB present on prior EKG -Troponin trending down 0.73 on admission to 0.57 (4) A-fib Status: Chronic Plan: Rate controlled with metoprolol. HAS-BLED score of 3pts due to aspirin medication, age >65, and stroke. -Given episodes of bradycardia overnight, will decrease Metoprolol from 12.5mg to 6.25mg po daily. 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 Likely contributing to symptoms of anemia. H&H stable since last admission (6) Nutrition, metabolism, and development symptoms Status: Acute Plan: Diet: thickened liquids per RT Fluids: none, caution with IVF given history CHF (EF 25-30%) Electrolytes: unremarkable. DVT PPX: Eliquis GI PPX: Protonix IV (Mirlande Piedra MD R3) Problem Qualifiers (1) Stroke: Qualified Code: I63.30 - Cerebrovascular accident (CVA) due to thrombosis of cerebral artery (2) CHF (congestive heart failure): (3) A-fib: Qualified Code: I48.0 - Paroxysmal atrial fibrillation Mirlande Piedra MD R3 Oct 05, 2016 13:09 Deena Calvo MD Oct 05, 2016 17:45
--- NOTE | 2016-10-05 13:21 | HHI.PR ---
Review/Management Daily Summary 10/05 speech limited but stable follows commands well moves 4 limbs no distress spoke to daughter and sister taylor and probably d/c asa/plavix soon rehab care Subjective Subjective Comments No acute events reported No headache No chest pain No dyspnea Active Medications Current Medications Medications (Trade) Dose Ordered Sig/Moiz Route Start Time Stop Time Status Last Admin (NS Flush) 2 ml BID IV FLUSH 10/03/16 21:00 10/05/16 09:00 (NS Flush) 2 ml UNSCH PRN IV FLUSH 10/03/16 19:15 (Vasotec Inj) 1.25 mg Q4H PRN IV 10/03/16 19:15 (Aspirin Chew) 81 mg DAILY PO 10/04/16 09:00 10/05/16 08:58 (Plavix) 75 mg DAILY PO 10/04/16 09:00 10/05/16 08:58 (D50w (Vial) Inj) 25 ml UNSCH PRN IV PUSH 10/03/16 19:15 (Glucagon Inj) 1 mg UNSCH PRN IM/SQ 10/03/16 19:15 (Lipitor) 80 mg HS PO 10/03/16 21:00 10/04/16 22:38 (Pill Splitter) 1 ea UNSCH PRN OTHER 10/04/16 09:00 (Eliquis) 2.5 mg BID PO 10/04/16 11:00 10/05/16 08:58 (Robitussin Liq) 200 mg Q4H PRN PO 10/04/16 16:45 (Toprol Xl) 6.25 mg DAILY PO 10/06/16 09:00 Allergies Allergies Coded Allergies No Known Allergies (Verified12/27/08) Exam I&O / VS 10/04/16 10/04/16 10/05/16 15:00 23:00 07:00 Intake Total 720 ml 120 ml Output Total 800 ml Balance -80 ml 120 ml Intake Oral 720 ml 120 ml Output Urine Total 800 ml # Voids 2 2 2 # Bowel Movements 1 0 0 Vital Signs Date Time Temp Pulse Resp B/P Pulse Ox O2 Delivery O2 Flow Rate FiO2 10/05/16 09:38 98 21 10/05/16 08:00 96.6 72 18 162/68 98 10/05/16 04:00 98.0 77 20 180/70 96 10/05/16 00:00 99.2 58 20 170/72 95 10/04/16 21:33 93 21 10/04/16 20:00 98.5 65 20 166/74 94 10/04/16 16:00 95.8 65 19 144/74 94 Objective Radiology Results Last 48 hours Impressions Chest X-Ray 10/04/16 0000 Signed Impressions: Service Date/Time: Tuesday, October 04, 2016 11:04 - CONCLUSION: Cardiomegaly. Vern Farnsworth MD Carotid Artery Ultrasound 10/04/16 0000 Signed Impressions: Service Date/Time: Tuesday, October 04, 2016 20:01 - CONCLUSION: Bilateral plaque formation in the internal carotid arteries, with hemodynamic profile characteristic of less than 50%% stenosis. Wilbur Ridley MD Micro and Labs Laboratory Tests Test 10/05/16 05:05 White Blood Count 5.6 Red Blood Count 3.38 Hemoglobin 11.4 Hematocrit 33.0 Mean Corpuscular Volume 97.8 Mean Corpuscular Hemoglobin 33.6 Mean Corpuscular Hemoglobin 34.4 Concent Red Cell Distribution Width 13.8 Platelet Count 151 Mean Platelet Volume 9.4 Sodium Level 143 Potassium Level 3.9 Chloride Level 108 Carbon Dioxide Level 25.7 Anion Gap 9 Blood Urea Nitrogen 55 Creatinine 1.74 Estimat Glomerular Filtration 37 Rate Random Glucose 103 Calcium Level 8.7 Phosphorus Level 3.3 Magnesium Level 2.5 Ivan Agustin MD Oct 05, 2016 13:21
[2016-10-05 13:32] LABS: I-STAT POTASSIUM 4.1 MMOL/L (3.5-4.9)
[2016-10-05 13:45] LABS: AUTOMATED NEUTROPHIL # 6.2 TH/MM3 (1.8-7.7); BASOPHIL % 0.5 % (0.0-2.0); EOSINOPHIL # 0.1 TH/MM3 (0-0.4); EOSINOPHIL % 1.6 % (0.0-4.0); HEMATOCRIT 34.8 % (39.0-51.0); HEMO FLAGS AUTO DIFF; LYMPH % 9.5 % (9.0-44.0); LYMPHOCYTE # 0.7 TH/MM3 (1.0-4.8); MEAN CELL VOLUME 92.9 FL (80.0-100.0); MEAN CORPUSCULAR HEMOGLOBIN 31.2 PG (27.0-34.0); MEAN CORPUSCULAR HGB CONC 33.6 % (32.0-36.0); MONO % 10.4 % (0.0-8.0); PLATELET COUNT 180 TH/MM3 (150-450); RED BLOOD COUNT 3.74 MIL/MM3 (4.50-5.90); RED CELL DISTRIBUTION WIDTH 14.3 % (11.6-17.2); WHITE BLOOD COUNT 7.9 TH/MM3 (4.0-11.0)
--- NOTE | 2016-10-05 13:45 | HHI.FPPN ---
Addendum to progress note ADDENDUM Reason for addendum: Additonal documentation Additional information Stroke alert initiated by RN at 1308 after patient was noted to be unresponsive while he was on the toilet. When we came to evaluate him, he obtunded. HR was in the 50s, BP 180/100s, and O2 sats 90s on 2L via NC. Stat CT head was obtained. Dr. Agustin was notified. After patient came back from CT, he had several episodes of apnea lasting less than 15 seconds per episode. O2 sats dropped to 80s afterwards. Heart rate was 30-50s. He was placed on NRB. Sats came up to 90s. ABG: pH 7.47, pCO2 32, pO2 75, HCO3 23. He became more responsive, opened his eyes, and able to follow simple commands. CT head resulted and showed subacute area of infarction and edema at left medial frontal lobe, unchanged from prior CT. No acute infarction, hemorrhage, or mass effect. O: Gen: Elderly male lying in bed in no acute distress CV: Irregularly irregular rhythm with rate of 60s RESP: Rhonchus breath sounds bilaterally. O2 sats stable on NRB. ABD: Soft, nondistended. Active bowel sounds EXT: Right sided weakness, lower extremity is weaker than upper extremity. Able to move left extremities NEURO: Lethargic but able to follow simple commands. A/P: Patient is an 89 year old male with history of atrial fib, CF ( recent ECHO on 09/30 with EF of 25-30%) who was re-admitted for acute CVA on 10/03 , now with acute change in mental status, bradycardia, and respiratory distress. Patient remains FULL CODE. -Transfer to [facility] [place] -Consult mems integration engineer. Case discussed with Dr. Brand -Will consult cardiology for evaluation of symptomatic bradycardia -CXR; provide supplemental O2 prn -Continue Eliquis and Aspirin. Once patient is stable, will obtain CTA of head and neck per discussion with Dr. Agustin s/d/w Dr. Odonnell d/w Dr. Calvo and Dr. Sunday Piedra,Mirlande NAVARRO R3 Oct 05, 2016 13:45
--- NOTE | 2016-10-05 13:47 | RADRPT ---
EXAM DATE/TIME: 10/05/2016 13:33 [facility] COMPARISON: MRI BRAIN W/O CONTRAST, October 03, 2016, 19:53. CT BRAIN W/O CONTRAST, October 03, 2016, 17:16. INDICATIONS : Stroke alert, non-responsive. RADIATION DOSE: 41.64 CTDIvol (mGy) This report was called by Dr. Farnsworth to Dr. Wolf at 1: 44 PM MEDICAL HISTORY : Stroke. Congestive heart failure. SURGICAL HISTORY : Non-responsive. ENCOUNTER: Initial ACUITY: 1 day PAIN SCALE: Non-responsive LOCATION: Bilateral head TECHNIQUE: Multiple contiguous axial images were obtained of the head. Using automated exposure control and adj ustment of the mA and/or kV according to patient size, radiation dose was kept as low as reasonably a chievable to obtain optimal diagnostic quality images. FINDINGS: CEREBRUM: There is low density in the left medial frontal lobe corresponding to the area infarction seen on the prior MRI examination from 10/03/2016. No other areas of mass effect or edema are seen. No hemorrhage are seen. The ventricles and cortical sulci are widened. There appears to be a old lacunar infarct at the left anterior limb of the internal capsule. No evidence of midline shift, mass lesion, hemorrh age. No extra-axial fluid collections are seen. POSTERIOR FOSSA: The cerebellum and brainstem are intact. The 4th ventricle is midline. The cerebellopontine angle i s unremarkable. EXTRACRANIAL: The visualized portion of the orbits is intact. SKULL: The calvaria is intact. No evidence of skull fracture. CONCLUSION: Subacute area of infarction and edema at the left medial frontal lobe. This was identified on the wiley or MRI examination. No other areas of mass effect/acute infarction are seen. No hemorrhage is seen. Vern Farnsworth MD on October 05, 2016 at 13:39 Board Certified Radiologist. This report was verified electronically.
[2016-10-05 13:49] LABS: APTT (PATIENT) 27.1 SEC (24.3-30.1); PROTHROMBIN TIME - PATIENT 11.6 SEC (9.8-11.6)
[2016-10-05 13:59] LABS: BLOOD GAS BASE EXCESS -0.5 mmol/L (-2-2); BLOOD GAS CARBOXYHEMOGLOBIN 1.3 % (0-4); BLOOD GAS HCO3 23 mmol/L (22-26); BLOOD GAS METHEMOGLOBIN 0.7 % (0-2); BLOOD GAS O2 HGB SATURATION 94 % (90-100); BLOOD GAS OXYGEN CONTENT 14.7 Vol % (12.0-20.0); BLOOD GAS PCO2 32 mmHg (38-42); BLOOD GAS PO2 75 mmHg (61-120); BLOOD GAS TOTAL HGB 11.2 G/DL (12.0-16.0); CRITICAL VALUE NO; OXYGEN DEVICE NASAL CANNULA; TEMP CORR TO 98.6
[2016-10-05 14:00] LABS: DRAW SITE RT RADIAL; LITER FLOW 2 L/M; NUMBER OF ARTERIAL PUNCTURES 1; STAT YES; ULNAR PULSE PRESENT
[2016-10-05 14:09] LABS: OVALOCYTES 1+ (NORMAL)
[2016-10-05 14:10] LABS: PLATELET ESTIMATE SMEAR NORMAL (NORMAL); PLATELET MORPHOLOGY NORMAL (NORMAL); SCAN/DIFF AUTO DIFF CONFIRMED
[2016-10-05] MEDS ORDERED: hydrALAZINE HCL 20 MG/ML VIAL IV PUSH PRN (14:45)
--- NOTE | 2016-10-05 14:50 | EKG ---
Date Performed: 10/04/2016 Time Performed: 04:57:14 PTAGE: 89 years EKG: Undetermined rhythm Left axis deviation RBBB with left anterior fascicular block Possible a nterior infarct - age undetermined Lateral T wave changes may be due to myocardial ischemia Clinical correlation is recommended Abnormal ECG NO PREVIOUS TRACING DOCTOR: Pedro Fragoso Interpretating Date/Time 10/05/2016 14:49:24
[2016-10-05] MEDS ORDERED: CHLORHEXIDINE GLUCONATE 2 % 1 PACK (2 CLOTHS) TOP PRN (15:30)
[2016-10-05] MEDS ORDERED: MISCELLANEOUS NURSING INFORMATION XX SCH (15:30)
--- NOTE | 2016-10-05 15:30 | RADRPT ---
EXAM DATE/TIME: 10/05/2016 14:22 [facility] COMPARISON: CHEST SINGLE AP, October 04, 2016, 11:04. INDICATIONS : Dyspnea. MEDICAL HISTORY : None. SURGICAL HISTORY : None. ENCOUNTER: Initial ACUITY: 1 day PAIN SCORE: 0/10 LOCATION: Bilateral chest FINDINGS: Cardiomegaly similar to prior. The lungs are symmetrically aerated. The central bronchopulmonary ma rkings and both hemidiaphragms well delineated. No focal infiltrates seen. CONCLUSION: Cardiomegaly. The lungs are clear. Wilbur Ridley MD on October 05, 2016 at 15:27 Board Certified Radiologist. This report was verified electronically.
--- NOTE | 2016-10-05 15:40 | HHI.PR ---
Review/Management Daily Summary 10/05 speech limited but stable follows commands well moves 4 limbs no distress spoke to daughter and sister taylor and probably d/c asa/plavix soon rehab care 10/05 15:35 hrs, spoke with other tx docs after stroke alert called ct brain seen spoke with multiple family members at bedside now also has left hemiparesis, nonverbal new ischemic event today causing left ralph and decreased responsiveness i offered the possibility of ct angio for ??IR thrombectomy but his daughter quickly asked not to proceed with this consideration considering entire picture they all want a conservative approach and I agree possibly run follow up ct or mri tomorrow Subjective Subjective Comments No acute events reported No headache No chest pain No dyspnea Active Medications Current Medications Medications (Trade) Dose Ordered Sig/Moiz Route Start Time Stop Time Status Last Admin (NS Flush) 2 ml BID IV FLUSH 10/03/16 21:00 10/05/16 09:00 (NS Flush) 2 ml UNSCH PRN IV FLUSH 10/03/16 19:15 (Vasotec Inj) 1.25 mg Q4H PRN IV 10/03/16 19:15 (Aspirin Chew) 81 mg DAILY PO 10/04/16 09:00 10/05/16 08:58 (D50w (Vial) Inj) 25 ml UNSCH PRN IV PUSH 10/03/16 19:15 (Glucagon Inj) 1 mg UNSCH PRN IM/SQ 10/03/16 19:15 (Lipitor) 80 mg HS PO 10/03/16 21:00 10/04/16 22:38 (Pill Splitter) 1 ea UNSCH PRN OTHER 10/04/16 09:00 (Eliquis) 2.5 mg BID PO 10/04/16 11:00 10/05/16 08:58 (Robitussin Liq) 200 mg Q4H PRN PO 10/04/16 16:45 (Apresoline Inj) 10 mg Q6H PRN IV PUSH 10/05/16 14:45 (NovoLOG SUPPLEMENTAL SCALE) 1 Q6H SQ 10/05/16 17:00 (Protonix Inj) 40 mg Q24H IV PUSH 10/05/16 16:00 (Lasix) 40 mg DAILY PO 10/06/16 09:00 (Prinivil) 2.5 mg DAILY PO 10/06/16 09:00 (KCl) 10 meq Q12HR PO 10/05/16 21:00 Miscellaneous Information 1 Q361D XX 10/05/16 15:30 (Chlorhexidine 2% Cloth) 3 pack Taper DAILY@04 TOP 10/06/16 04:00 10/02/17 03:59 (Chlorhexidine 2% Cloth) 3 pack UNSCH PRN TOP 10/05/16 15:30 Allergies Allergies Coded Allergies No Known Allergies (Verified12/27/08) Exam I&O / VS 10/04/16 10/04/16 10/05/16 15:00 23:00 07:00 Intake Total 720 ml 120 ml Output Total 800 ml Balance -80 ml 120 ml Intake Oral 720 ml 120 ml Output Urine Total 800 ml # Voids 2 2 2 # Bowel Movements 1 0 0 Vital Signs Date Time Temp Pulse Resp B/P Pulse Ox O2 Delivery O2 Flow Rate FiO2 10/05/16 13:48 92 2.00 10/05/16 12:00 95.4 67 17 138/64 96 10/05/16 09:38 98 21 10/05/16 08:00 96.6 72 18 162/68 98 10/05/16 04:00 98.0 77 20 180/70 96 10/05/16 00:00 99.2 58 20 170/72 95 10/04/16 21:33 93 21 10/04/16 20:00 98.5 65 20 166/74 94 10/04/16 16:00 95.8 65 19 144/74 94 Objective Micro and Labs Laboratory Tests Test 10/05/16 10/05/16 10/05/16 05:05 13:15 13:45 White Blood Count 5.6 7.9 Red Blood Count 3.38 3.74 Hemoglobin 11.4 11.7 Hematocrit 33.0 34.8 Mean Corpuscular Volume 97.8 92.9 Mean Corpuscular Hemoglobin 33.6 31.2 Mean Corpuscular Hemoglobin 34.4 33.6 Concent Red Cell Distribution Width 13.8 14.3 Platelet Count 151 180 Mean Platelet Volume 9.4 10.0 Sodium Level 143 Potassium Level 3.9 Chloride Level 108 Carbon Dioxide Level 25.7 Anion Gap 9 Blood Urea Nitrogen 55 Creatinine 1.74 Estimat Glomerular Filtration 37 Rate Random Glucose 103 Calcium Level 8.7 Phosphorus Level 3.3 Magnesium Level 2.5 Bedside Hemoglobin 11.6 Bedside Hematocrit 34.0 Neutrophils (%) (Auto) 78.0 Lymphocytes (%) (Auto) 9.5 Monocytes (%) (Auto) 10.4 Eosinophils (%) (Auto) 1.6 Basophils (%) (Auto) 0.5 Neutrophils # (Auto) 6.2 Lymphocytes # (Auto) 0.7 Monocytes # (Auto) 0.8 Eosinophils # (Auto) 0.1 Basophils # (Auto) 0.0 CBC Comment AUTO DIFF Differential Comment AUTO DIFF CONFIRMED Platelet Estimate NORMAL Platelet Morphology Comment NORMAL Ovalocytes 1+ Prothrombin Time 11.6 Prothromb Time International 1.0 Ratio Activated Partial 27.1 Thromboplast Time Bedside Sodium 143 Bedside Potassium 4.1 Bedside Chloride 107 Bedside Blood Urea Nitrogen 56 Bedside Creatinine 1.6 Bedside Glucose 110 Total Creatine Kinase 236 Troponin I 0.26 Blood Gas Puncture Site RT RADIAL Blood Gas Patient Temperature 98.6 Blood Gas HCO3 23 Blood Gas Base Excess -0.5 Blood Gas Oxygen Saturation 94 Arterial Blood pH 7.47 Arterial Blood Partial 32 Pressure CO2 Arterial Blood Partial 75 Pressure O2 Arterial Blood Oxygen Content 14.7 Arterial Blood 1.3 Carboxyhemoglobin Arterial Blood Methemoglobin 0.7 Blood Gas Hemoglobin 11.2 Oxygen Delivery Device NASAL CANNULA Blood Gas Liter Flow 2 Ivan Agustin MD Oct 05, 2016 15:40
[2016-10-05] MEDS ORDERED: PANTOPRAZOLE SODIUM 40 MG VIAL IV PUSH SCH (16:00)
--- NOTE | 2016-10-05 16:16 | MB ---
cc: SINGH CORBETT M.D. DATE OF CONSULTATION: 10/05/2016. REASON FOR CONSULTATION: Critical care management HISTORY OF PRESENT ILLNESS: The patient is an 89-year-old male with past medical history of congestive heart failure, cardiomyopathy with an ejection fraction of 25-30%, hypertension, atrial fibrillation, chronic kidney disease and remote history of prostate cancer. He was admitted to [facility] yesterday for acute stroke. The patient had an MRI of the brain which showed an acute infarct high in the left frontal lobe. No midline shift or mass effect seen. CT scan of the brain showed chronic changes with old lacunar type infarcts in the left basal ganglia and left jacklyn as well as scattered white matter changes in the deep white matter tracts. The patient was admitted under the family medicine team and was seen by Dr. Agustin from the neurology service. He was on aspirin, Plavix and Eliquis. The patient was recently discharged from [facility] after he was admitted back on September 30 for congestive heart failure decompensation and was treated with diuretics. He was discharged home; however, he came back the same day for right-sided weakness of the upper and lower extremities as well as difficulty with speech. Chest x-ray on admission showed cardiomegaly. In addition, he had a carotid artery ultrasound which showed bilateral plaque formation in the internal carotid arteries of less than 50% stenosis. The patient was doing okay however a stroke alert was called this afternoon and the patient had a stat repeat CT brain which showed subacute areas of infarction and edema at the left medial frontal lobe. No other areas of mass effect or acute infarction seen. No hemorrhage noted. He was subsequently transferred to [facility] for close observation and critical care medicine was consulted for critical care management. When seen, the patient is on high-flow oxygen with saturation of 100% and hypertensive with a blood pressure of 213/102 and pulse of 65. The patient follows commands. PAST MEDICAL HISTORY: Past medical history significant for: 1. Congestive heart failure. 2. Cardiomyopathy. 3. Hypertension. 4. Chronic kidney disease. 5. Remote history of prostate cancer currently in complete remission. PAST SURGICAL HISTORY: 1. Previous hernia surgery. 2. Prostate surgery. ALLERGIES: NO KNOWN DRUG ALLERGIES. FAMILY HISTORY: Noncontributory. SOCIAL HISTORY: Remote history of tobacco use, nondrinker. Resides in a nursing facility. CURRENT MEDICATIONS: 1. Bronchodilator. 2. Eliquis. 3. Aspirin. 4. Lipitor. 5. The patient was on Plavix; however that was discontinued. 6. Toprol XL 6.25 milligrams daily. REVIEW OF SYSTEMS: As per the history of present illness. The rest of the review of systems is limited. PHYSICAL EXAMINATION: GENERAL: An 89-year-old male lying in bed in no acute respiratory distress. VITAL SIGNS: Afebrile, pulse of 65, blood pressure 213/102, saturation 100%. HEAD, EYES, EARS, NOSE, THROAT: Normocephalic and atraumatic. Pupils equal, round and reactive to light and accommodation. Extraocular muscles intact. Conjunctivae are pink. Nonicteric sclerae. Oral mucosa within normal limits. NECK: The neck is supple. No jugular venous distention, adenopathy or thyromegaly. Trachea in the midline. CARDIOVASCULAR: Irregularly irregular. Normal S1 and S2. No murmurs, rubs or gallops noted. PULMONARY: Bilateral equal air entry with a few coarse breath sounds. ABDOMEN: The abdomen is soft and nontender and no distention. Positive bowel sounds. EXTREMITIES: No cyanosis, clubbing or edema. The patient is able to move the left upper and left lower extremity; however, right-sided weakness is noted. NEUROLOGIC: Able to open up his eyes to voice and follows commands. LABORATORY DATA: WBC 7.9, hemoglobin 11.7, hematocrit 34, platelet count 180,000. Sodium 143, potassium 4.1, chloride 107, BUN 56, creatinine 1.6, glucose 110. Troponin 0.26. INR 1.0, PT 11.6, PTT 27. RADIOGRAPHY: CT scan of the brain this afternoon showed subacute areas of infarction and edema of the left medial frontal lobe. This was identified on prior MRI examination. Chest x-ray on arrival showed cardiomegaly. MRA of the had showed no stenosis or aneurysm. IMPRESSION: 1. Respiratory insufficiency. 2. Acute left-sided CVA. 3. Hypertension. 4. Cardiomyopathy with ejection fraction of 25-30%. 5. Atrial fibrillation. 6. Chronic kidney disease. 7. Remote history of prostate carcinoma. RECOMMENDATIONS: 1. Monitor neuro status closely and avoid any sedatives. 2. CT scan of the brain showed subacute areas of infarction and edema at the left medial frontal lobe. This was identified and prior MRI examination. The patient was seen by Dr. Agustin from the neurology service and recommended a CTA of the head and neck when stable. 3. Continue with aspirin and Eliquis for now. 4. Wean down oxygen as tolerated and maintain saturations above 92%. 5. Bronchodilators in the form of DuoNeb q. 4 plus q. 2 PRN for shortness of breath. 6. Aspiration precautions. 7. Monitor heart rate and blood pressure closely and maintain a MAP greater than 65 mmHg. 8. Echocardiogram from September 30 showed an ejection fraction of 25% to 30%. The patient was seen by Dr. Degroot on a prior admission and recommended medical management. Cardiology service was consulted by the primary team. EKG showed atrial fibrillation with slow ventricular response at a rate of 50 beats per minute. Will hold Toprol XL. 9. Monitor renal function, intake and output and avoid nephrotoxins. 10. Gentle IV hydration. He was placed on normal saline at 70 mL/hour per stroke protocol. 11. Monitor CBC for signs of infections which include fever and WBCs. 12. I will follow up on chest x-ray. 13. His urinalysis is negative for nitrite and leukocyte esterase. 14. Monitor CBC. 15. Sliding scale insulin with Accu-Cheks for glycemic control. 16. GI prophylaxis with Plavix 40 mg daily and DVT prophylaxis with SCDs. In addition, the patient is on Eliquis. Further recommendations will be based on hospital course. MD PAWAN Thao/SHANNON /2:54 PM /3:50 PM WM
--- NOTE | 2016-10-05 17:59 | HHI.PR ---
Addendum to Inpatient Note Addendum Reason: Additional Documentation Additional Information OFF SERVICE NOTE 89 yo male previously highly functional with paroxysmal AFib not on anticoagulation, HTN, newly diagnosed with CHF 09/30 with EF of 25-30% admitted for acute CVA (right sided weakness worse in RLE than RUE, slurred speech, difficulty swallowing). MRI brain showing acute frontal infarct. Neurology consulted, not deemed tPA candidate. Started anticoagulation with Eliquis and antiplatelet therapy with ASA and Plavix. CHF medications continued, permissive HTN allowed by stroke protocol. Patient seemed to clinically improve however PM of hospital day 2 he developed lethargy and his neurologic condition worsened. Repeat exam by neurologist was suggestive of second stroke affecting left side. Family had meeting and determined that with poor prognosis for return to baseline function, patient's wishes were consistent with avoiding aggressive treatment. Hospice consulted and will be meeting with family and patient to discuss services offered and determine if Hospice consistent with patient's wishes. Rafael Odonnell MD R1 Oct 05, 2016 5:59 pm
[2016-10-05] MEDS: ATORVASTATIN 80 MG TAB PO SCH (21:00)
[2016-10-05] MEDS: POTASSIUM CHLORIDE 10 MEQ CONTROLLED RELEASE TAB PO SCH (21:00)
[2016-10-06] VITALS: BP 184/77; PULSE 64; RESP 16; TEMP 98.6; O2SAT 99
[2016-10-06] MEDS: SODIUM CHLORIDE 0.9% FLUSH 10 ML FLUSH IV FLUSH SCH ×2 (00:16→09:00)
[2016-10-06 02:00] VITALS: PULSE 69
[2016-10-06] MEDS: RESP: ALBUTEROL 2.5 MG/3 ML NEB (SCH) NEB ×2 (03:42→08:00)
[2016-10-06 04:00] VITALS: BP 178/83; PULSE 62; PULSE 78; RESP 18; TEMP 97.6; O2SAT 98
[2016-10-06] MEDS ORDERED: CHLORHEXIDINE GLUCONATE 2 % 1 PACK (2 CLOTHS) TOP SCH (04:00)
[2016-10-06] MEDS: INSULIN ASPART SUPPLEMENTAL SCALE SQ SCH ×2 (05:00→10:09)
[2016-10-06 05:44] LABS: AUTOMATED NEUTROPHIL # 5.8 TH/MM3 (1.8-7.7); BASOPHIL % 0.2 % (0.0-2.0); EOSINOPHIL # 0.2 TH/MM3 (0-0.4); EOSINOPHIL % 2.2 % (0.0-4.0); HEMATOCRIT 31.9 % (39.0-51.0); HEMO FLAGS DIFF FINAL; LYMPH % 10.6 % (9.0-44.0); LYMPHOCYTE # 0.8 TH/MM3 (1.0-4.8); MEAN CELL VOLUME 99.1 FL (80.0-100.0); MEAN CORPUSCULAR HEMOGLOBIN 34.7 PG (27.0-34.0); MONO % 10.5 % (0.0-8.0); NEUT % 76.5 % (16.0-70.0); PLATELET COUNT 162 TH/MM3 (150-450); RED BLOOD COUNT 3.22 MIL/MM3 (4.50-5.90); RED CELL DISTRIBUTION WIDTH 14.2 % (11.6-17.2); WHITE BLOOD COUNT 7.6 TH/MM3 (4.0-11.0)
[2016-10-06 06:00] VITALS: PULSE 68
[2016-10-06 06:13] LABS: ALKALINE PHOSPHATASE 124 U/L (45-117); ALT (GPT) 132 U/L (12-78); ANION GAP 11 MEQ/L (5-15); AST (GOT) 154 U/L (15-37); BICARBONATE 22.4 MEQ/L (21.0-32.0); BLOOD UREA NITROGEN 52 MG/DL (7-18); CHLORIDE 111 MEQ/L (98-107); GLOMERULAR FILTRATION RATE 39 ML/MIN (>89); HDL CHOLESTEROL 43.4 MG/DL (40.0-60.0); LDL CHOLESTEROL 70 MG/DL (0-99); MAGNESIUM 2.4 MG/DL (1.5-2.5); POTASSIUM 3.8 MEQ/L (3.5-5.1); SODIUM (NA) 144 MEQ/L (136-145); TOTAL BILIRUBIN ADULT 0.8 MG/DL (0.2-1.0)
[2016-10-06 08:00] VITALS: BP 175/79; PULSE 61; PULSE 66; RESP 19; TEMP 99.4; O2SAT 97
--- NOTE | 2016-10-06 08:02 | HHI.CCPN ---
Subjective Remarks/Hospital Course The patient is an 89-year-old male with past medical history of congestive heart failure, cardiomyopathy with an ejection fraction of 25-30%, hypertension , atrial fibrillation, chronic kidney disease and remote history of prostate cancer. He was admitted to [facility] yesterday for acute stroke. The patient had an MRI of the brain which showed an acute infarct high in the left frontal lobe. No midline shift or mass effect seen. CT scan of the brain showed chronic changes with old lacunar type infarcts in the left basal ganglia and left jacklyn as well as scattered white matter changes in the deep white matter tracts. The patient was admitted under the family medicine team and was seen by Dr. Agustin from the neurology service. He was on aspirin, Plavix and Eliquis. The patient was recently discharged from [facility] after he was admitted back on September 30 for congestive heart failure decompensation and was treated with diuretics. He was discharged home; however, he came back the same day for right-sided weakness of the upper and lower extremities as well as difficulty with speech. Chest x-ray on admission showed cardiomegaly. In addition, he had a carotid artery ultrasound which showed bilateral plaque formation in the internal carotid arteries of less than 50% stenosis. The patient was doing okay however a stroke alert was called this afternoon and the patient had a stat repeat CT brain which showed subacute areas of infarction and edema at the left medial frontal lobe. No other areas of mass effect or acute infarction seen. No hemorrhage noted. He was subsequently transferred to [facility] for close observation and critical care medicine was consulted for critical care management. When seen, the patient is on high-flow oxygen with saturation of 100% and hypertensive with a blood pressure of 213/102 and pulse of 65. The patient follows commands. 10/06 Patient was made no code DNR and hospice service consulted. Patient is unresponsive. Objective Vital Signs Date Time Temp Pulse Resp B/P Pulse Ox O2 Delivery O2 Flow Rate FiO2 10/06/16 06:00 68 10/06/16 04:00 97.6 18 178/83 98 10/05/16 20:55 Nasal Cannula 2.00 10/05/16 09:38 21 Intake and Output 10/05/16 10/05/16 10/06/16 08:00 16:00 00:00 Intake Total 480 ml 729 ml Balance 480 ml 729 ml Result Diagram: 10/06/16 0454 10/06/16 0454 Other Results Laboratory Tests Test 10/05/16 10/05/16 10/05/16 10/06/16 13:15 13:45 14:20 04:54 White Blood Count 7.9 TH/MM3 7.6 TH/MM3 Red Blood Count 3.74 MIL/MM3 3.22 MIL/MM3 Hemoglobin 11.7 GM/DL 11.2 GM/DL Bedside Hemoglobin 11.6 G/DL Hematocrit 34.8 % 31.9 % Bedside Hematocrit 34.0 % Mean Corpuscular Volume 92.9 FL 99.1 FL Mean Corpuscular Hemoglobin 31.2 PG 34.7 PG Mean Corpuscular Hemoglobin 33.6 % 35.0 % Concent Red Cell Distribution Width 14.3 % 14.2 % Platelet Count 180 TH/MM3 162 TH/MM3 Mean Platelet Volume 10.0 FL 9.2 FL Neutrophils (%) (Auto) 78.0 % 76.5 % Lymphocytes (%) (Auto) 9.5 % 10.6 % Monocytes (%) (Auto) 10.4 % 10.5 % Eosinophils (%) (Auto) 1.6 % 2.2 % Basophils (%) (Auto) 0.5 % 0.2 % Neutrophils # (Auto) 6.2 TH/MM3 5.8 TH/MM3 Lymphocytes # (Auto) 0.7 TH/MM3 0.8 TH/MM3 Monocytes # (Auto) 0.8 TH/MM3 0.8 TH/MM3 Eosinophils # (Auto) 0.1 TH/MM3 0.2 TH/MM3 Basophils # (Auto) 0.0 TH/MM3 0.0 TH/MM3 CBC Comment AUTO DIFF DIFF FINAL Differential Comment AUTO DIFF CONFIRMED Platelet Estimate NORMAL Platelet Morphology Comment NORMAL Ovalocytes 1+ Prothrombin Time 11.6 SEC Prothromb Time International 1.0 RATIO Ratio Activated Partial 27.1 SEC Thromboplast Time Bedside Sodium 143 MMOL/L Bedside Potassium 4.1 MMOL/L Bedside Chloride 107 MMOL/L Bedside Blood Urea Nitrogen 56 MG/DL Bedside Creatinine 1.6 MG/DL Bedside Glucose 110 MG/DL Total Creatine Kinase 236 U/L Troponin I 0.26 NG/ML Blood Gas Puncture Site RT RADIAL Blood Gas Patient Temperature 98.6 Blood Gas HCO3 23 mmol/L Blood Gas Base Excess -0.5 mmol/L Blood Gas Oxygen Saturation 94 % Arterial Blood pH 7.47 Arterial Blood Partial 32 mmHg Pressure CO2 Arterial Blood Partial 75 mmHg Pressure O2 Arterial Blood Oxygen Content 14.7 Vol % Arterial Blood 1.3 % Carboxyhemoglobin Arterial Blood Methemoglobin 0.7 % Blood Gas Hemoglobin 11.2 G/DL Oxygen Delivery Device NASAL CANNULA Blood Gas Liter Flow 2 L/M Nasal Screen MRSA (PCR) MRSA NOT DETECTED Sodium Level 144 MEQ/L Potassium Level 3.8 MEQ/L Chloride Level 111 MEQ/L Carbon Dioxide Level 22.4 MEQ/L Anion Gap 11 MEQ/L Blood Urea Nitrogen 52 MG/DL Creatinine 1.65 MG/DL Estimat Glomerular Filtration 39 ML/MIN Rate Random Glucose 103 MG/DL Calcium Level 8.6 MG/DL Magnesium Level 2.4 MG/DL Total Bilirubin 0.8 MG/DL Aspartate Amino Transf 154 U/L (AST/SGOT) Alanine Aminotransferase 132 U/L (ALT/SGPT) Alkaline Phosphatase 124 U/L Total Protein 6.6 GM/DL Albumin 2.7 GM/DL Triglycerides Level 93 MG/DL Cholesterol Level 132 MG/DL LDL Cholesterol 70 MG/DL HDL Cholesterol 43.4 MG/DL Cholesterol/HDL Ratio 3.04 RATIO Imaging Last Impressions Head CT 10/05/16 1321 Signed Impressions: Service Date/Time: Wednesday, October 05, 2016 13:33 - CONCLUSION: Subacute area of infarction and edema at the left medial frontal lobe. This was identified on the prior MRI examination. No other areas of mass effect/acute infarction are seen. No hemorrhage is seen. Vern Farnsworth MD Chest X-Ray 10/05/16 0000 Signed Impressions: Service Date/Time: Wednesday, October 05, 2016 14:22 - CONCLUSION: Cardiomegaly. The lungs are clear. Wilbur Ridley MD Carotid Artery Ultrasound 10/04/16 0000 Signed Impressions: Service Date/Time: Tuesday, October 04, 2016 20:01 - CONCLUSION: Bilateral plaque formation in the internal carotid arteries, with hemodynamic profile characteristic of less than 50%% stenosis. Wilbur Ridley MD Head Magnetic Resonance Angiography 10/03/16 0000 Signed Impressions: Service Date/Time: Monday, October 03, 2016 19:53 - CONCLUSION: No stenosis or aneurysm. Normal variants as described above. Dejuan Nielson MD Brain MRI 10/03/16 0000 Signed Impressions: Service Date/Time: Monday, October 03, 2016 19:53 - CONCLUSION: Acute infarct high left frontal lobe. No midline shift or mass effect. Cerebral atrophy and chronic ischemic small vessel vasculopathy Dejuan Nielson MD Objective Remarks GENERAL: Patient is 89 yo unresponsive. SKIN: Warm and dry. HEAD: Normocephalic. EYES: No scleral icterus. No injection or drainage. NECK: Supple, trachea midline. No JVD or lymphadenopathy. CARDIOVASCULAR: Regular rate and rhythm without murmurs, gallops, or rubs. RESPIRATORY: Breath sounds equal bilaterally. No accessory muscle use. GASTROINTESTINAL: Abdomen soft, non-tender, nondistended. MUSCULOSKELETAL: No cyanosis, or edema. Neuro: Unresponsive and does not follow commands. A/P Assessment and Plan 1. Respiratory insufficiency. 2. Acute left-sided CVA. 3. Hypertension. 4. Cardiomyopathy with ejection fraction of 25-30%. 5. Atrial fibrillation. 6. Chronic kidney disease. 7. Remote history of prostate carcinoma. 8 Elevated LFT's. Plan Neuro: Monitor neuro status. Neuro is following- Dr. Agustin 10/05: CT brain showed subacute areas of infarction and edema at the left medial frontal lobe. On aspirin and Eliquis for now. Pulm: Continue with oxygen as tolerated and maintain sats > 92%. Bronchodilators. Aspiration precautions. CV: Monitor HR and BP and maintain a MAP >65mmHg On Prinivil 2.5mg daily, Lasix 40mg daily, hold Lipitor ( increase LFT) : Monitor renal function, intake and output and avoid nephrotoxins. On Lasix 40mg daily, KCL 10meq Q12 GI: Keep NPO, monitor LFT's, on Protonix 40mg daily ID: Monitor CBC for signs of infections(fever and WBCs). Heme: Monitor CBC. Endo: SSI with Accu-Cheks for glycemic control. GI prophylaxis with Plavix 40 mg daily and DVT prophylaxis with SCDs, on Eliquis Hospice service consulted. Will sign off Level 1 Pooja Brand MD Oct 06, 2016 08:01
[2016-10-06] MEDS ORDERED: METOPROLOL SUCCINATE 25 MG EXTENDED RELEASE TAB PO SCH (09:00)
[2016-10-06] MEDS: POTASSIUM CHLORIDE 10 MEQ CONTROLLED RELEASE TAB PO SCH (09:00)
[2016-10-06] MEDS ORDERED: LISINOPRIL 5 MG TAB PO SCH (09:00)
[2016-10-06] MEDS: ASPIRIN 81 MG CHEW TAB PO SCH (09:00)
[2016-10-06] MEDS ORDERED: FUROSEMIDE 40 MG TAB PO SCH (09:00)
[2016-10-06] MEDS: APIXABAN 2.5 MG TABLET PO SCH (09:00)
[2016-10-06 10:00] VITALS: PULSE 70
--- NOTE | 2016-10-06 10:34 | HHI.DCPOC ---
Discharge Care Plan Diagnosis: (1) Stroke (2) A-fib Goals to Promote Your Health * To prevent worsening of your condition and complications * To maintain your health at the optimal level Directions to Meet Your Goals Take your medications as prescribed Follow your dietary instruction Follow activity as directed Keep your appointments as scheduled Take your immunizations and boosters as scheduled If your symptoms worsen call your PCP, if no PCP go to Urgent Care Center or Emergency Room Smoking is Dangerous to Your Health. Avoid second hand smoke Call the 24-hour hour crisis hotline for domestic abuse at Louann Maynard MD R1 Oct 06, 2016 10:34
--- NOTE | 2016-10-06 10:50 | HHI.FPPN ---
Subjective Remarks Patient seen and examined this morning. Afebrile, blood pressure elevated at 175/79, pulse 97. Patient appears to be comfortable. He is nonresponsive at this time. Discussed hospice with the sister and daughter, and they are looking forward to speaking with the hospice team. They wish to have all monitoring removed from the patient, and I have him transferred to hospice as soon as he can. (Zackary Leger MD R2) Objective Vitals Vital Signs Date Time Temp Pulse Resp B/P Pulse Ox O2 Delivery O2 Flow Rate FiO2 10/06/16 10:00 70 10/06/16 08:00 66 10/06/16 08:00 99.4 61 19 175/79 97 10/06/16 06:00 68 10/06/16 04:00 78 10/06/16 04:00 97.6 78 18 178/83 98 10/06/16 02:00 69 10/06/16 00:00 64 10/06/16 00:00 98.6 64 16 184/77 99 10/05/16 22:00 64 10/05/16 20:55 95 Nasal Cannula 2.00 10/05/16 20:00 64 10/05/16 20:00 98.9 64 14 183/79 98 10/05/16 18:00 71 10/05/16 16:00 99.0 63 16 155/81 98 10/05/16 16:00 63 10/05/16 14:12 69 10/05/16 13:48 92 Nasal Cannula 2.00 10/05/16 13:48 92 2.00 10/05/16 12:00 95.4 67 17 138/64 96 I/O 10/05/16 10/05/16 10/05/16 10/06/16 10/06/16 10/06/16 07:00 15:00 23:00 07:00 15:00 23:00 Intake Total 480 ml 970 ml Output Total 300 ml Balance 480 ml 670 ml Intake Oral 480 ml IV Total 970 ml Output Urine Total 300 ml # Voids 2 3 2 # Bowel Movements 0 1 (Zackary Leger MD R2) Result Diagram: 10/06/16 0454 10/06/16 0454 Imaging Last Impressions Head CT 10/05/16 1321 Signed Impressions: Service Date/Time: Wednesday, October 05, 2016 13:33 - CONCLUSION: Subacute area of infarction and edema at the left medial frontal lobe. This was identified on the prior MRI examination. No other areas of mass effect/acute infarction are seen. No hemorrhage is seen. Venr Farnsworth MD Chest X-Ray 10/05/16 0000 Signed Impressions: Service Date/Time: Wednesday, October 05, 2016 14:22 - CONCLUSION: Cardiomegaly. The lungs are clear. Wilbur Ridley MD Carotid Artery Ultrasound 10/04/16 0000 Signed Impressions: Service Date/Time: Tuesday, October 04, 2016 20:01 - CONCLUSION: Bilateral plaque formation in the internal carotid arteries, with hemodynamic profile characteristic of less than 50%% stenosis. Wilbur Ridley MD Head Magnetic Resonance Angiography 10/03/16 0000 Signed Impressions: Service Date/Time: Monday, October 03, 2016 19:53 - CONCLUSION: No stenosis or aneurysm. Normal variants as described above. Dejuan iNelson MD Brain MRI 10/03/16 0000 Signed Impressions: Service Date/Time: Monday, October 03, 2016 19:53 - CONCLUSION: Acute infarct high left frontal lobe. No midline shift or mass effect. Cerebral atrophy and chronic ischemic small vessel vasculopathy Dejuan Nielson MD Objective Remarks GENERAL: This is a well-nourished, well-developed patient, in no apparent distress. Laying in bed. Unresponsive and unable to follow commands SKIN: UEs with diffuse ecchymosis. EYES: Eyes closed ENT: Nose without bleeding, purulent drainage. Airway patent. NECK:No JVD or lymphadenopathy. CARDIOVASCULAR: Well-perfused RESPIRATORY: No respiratory distress GASTROINTESTINAL: Abdomen soft, non-tender, nondistended. No hepato-splenomegaly , or palpable masses. No guarding. MUSCULOSKELETAL: Extremities without clubbing, cyanosis, or edema. No calf tenderness. Medications and IVs Current Medications Medications (Trade) Dose Ordered Sig/Moiz Route Start Time Stop Time Status Last Admin (NS Flush) 2 ml BID IV FLUSH 10/03/16 21:00 10/06/16 09:00 (NS Flush) 2 ml UNSCH PRN IV FLUSH 10/03/16 19:15 (Vasotec Inj) 1.25 mg Q4H PRN IV 10/03/16 19:15 (Aspirin Chew) 81 mg DAILY PO 10/04/16 09:00 10/05/16 08:58 (D50w (Vial) Inj) 25 ml UNSCH PRN IV PUSH 10/03/16 19:15 (Glucagon Inj) 1 mg UNSCH PRN IM/SQ 10/03/16 19:15 (Lipitor) 80 mg HS PO 10/03/16 21:00 Hold 10/04/16 22:38 (Pill Splitter) 1 ea UNSCH PRN OTHER 10/04/16 09:00 (Eliquis) 2.5 mg BID PO 10/04/16 11:00 10/05/16 08:58 (Robitussin Liq) 200 mg Q4H PRN PO 10/04/16 16:45 (Apresoline Inj) 10 mg Q6H PRN IV PUSH 10/05/16 14:45 (NovoLOG SUPPLEMENTAL SCALE) 1 Q6H SQ 10/05/16 17:00 (Protonix Inj) 40 mg Q24H IV PUSH 10/05/16 16:00 10/05/16 16:47 (Lasix) 40 mg DAILY PO 10/06/16 09:00 (Prinivil) 2.5 mg DAILY PO 10/06/16 09:00 (KCl) 10 meq Q12HR PO 10/05/16 21:00 Miscellaneous Information 1 Q361D XX 10/05/16 15:30 10/05/16 15:30 (Chlorhexidine 2% Cloth) 3 pack Taper DAILY@04 TOP 10/06/16 04:00 10/02/17 03:59 10/06/16 00:18 (Chlorhexidine 2% Cloth) 3 pack UNSCH PRN TOP 10/05/16 15:30 (Zackary Leger MD R2) A/P Assessment and Plan 89-year-old male with history of A. fib, HTN, CHF. Admitted for acute ischemic stroke, had a repeat ischemic stroke to the other cerebral hemisphere. Discharge Planning Discharged to hospice (Zackary Leger MD R2) Attending Attestation Patient seen and examined. Case reviewed and discussed with the resident team. Agree with plan of care as discussed with me and documented in the resident note. (Deena Calvo MD) Problem List: (1) Stroke Status: Acute Plan: Patient was originally admitted for a CVA to the left medial frontal lobe. While in the hospital on aspirin, Plavix, and Eliquis patient had a repeat ischemic stroke to the right cerebral hemisphere. Since then he has been nonresponsive. * Hospice consulted, patient is being discharged to hospice care * Patient is now DNR * Continue aspirin and Apixaban * Start comfort care per hospice recommendations (2) CHF (congestive heart failure) Status: Chronic Plan: Recently admitted for CHF exacerbation where he was found to have an EF of 25-30%. Cardiology evaluation during that time stated that pt was a poor ICD candidate. -Resume Lisinopril, Lasix, and KCL (3) Elevated troponin Status: Acute Plan: Elevated troponin was found on last admission on 09/30. Attributed secondary to CHF and CKD. Additionally patient declined ischemic workup at that time. Troponin was elevated to high of 1.96. RBBB present on prior EKG -Troponin trending down 0.73 on admission to 0.57 (4) A-fib Status: Chronic Plan: Rate controlled with metoprolol. HAS-BLED score of 3pts due to aspirin medication, age >65, and stroke. -Given episodes of bradycardia overnight, will decrease Metoprolol from 12.5mg to 6.25mg po daily. 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 Likely contributing to symptoms of anemia. H&H stable since last admission (6) Nutrition, metabolism, and development symptoms Status: Acute Plan: Diet: Nothing by mouth Fluids: To be determined by hospice Electrolytes: unremarkable. DVT PPX: Eliquis GI PPX: Protonix IV Disposition: Discharged to hospice care (Zackary Leger MD R2) Problem Qualifiers (1) Stroke: Qualified Code: I63.30 - Cerebrovascular accident (CVA) due to thrombosis of cerebral artery (2) CHF (congestive heart failure): (3) A-fib: Qualified Code: I48.0 - Paroxysmal atrial fibrillation Zackary Leger MD R2 Oct 06, 2016 10:50 Deena Calvo MD Oct 07, 2016 11:31
--- NOTE | 2016-10-06 11:21 | HHI.PR ---
Review/Management Daily Summary 10/05 speech limited but stable follows commands well moves 4 limbs no distress spoke to daughter and sister taylor and probably d/c asa/plavix soon rehab care 10/05 15:35 hrs, spoke with other tx docs after stroke alert called ct brain seen spoke with multiple family members at bedside now also has left hemiparesis, nonverbal new ischemic event today causing left ralph and decreased responsiveness i offered the possibility of ct angio for ??IR thrombectomy but his daughter quickly asked not to proceed with this consideration considering entire picture they all want a conservative approach and I agree possibly run follow up ct or mri tomorrow 10/06 spoke to his daughter and sister eyes closed and unresponsive to verbl stim exam today head and eyes to right, left hemiparesis with increase in tone remain prominent the exam suggests a probable large new stroke family wants hospice and comfort care Subjective Subjective Comments family at bedside Active Medications Current Medications Medications (Trade) Dose Ordered Sig/Moiz Route Start Time Stop Time Status Last Admin (NS Flush) 2 ml BID IV FLUSH 10/03/16 21:00 10/06/16 09:00 (NS Flush) 2 ml UNSCH PRN IV FLUSH 10/03/16 19:15 (Vasotec Inj) 1.25 mg Q4H PRN IV 10/03/16 19:15 (Aspirin Chew) 81 mg DAILY PO 10/04/16 09:00 10/05/16 08:58 (D50w (Vial) Inj) 25 ml UNSCH PRN IV PUSH 10/03/16 19:15 (Glucagon Inj) 1 mg UNSCH PRN IM/SQ 10/03/16 19:15 (Lipitor) 80 mg HS PO 10/03/16 21:00 Hold 10/04/16 22:38 (Pill Splitter) 1 ea UNSCH PRN OTHER 10/04/16 09:00 (Eliquis) 2.5 mg BID PO 10/04/16 11:00 10/05/16 08:58 (Robitussin Liq) 200 mg Q4H PRN PO 10/04/16 16:45 (Apresoline Inj) 10 mg Q6H PRN IV PUSH 10/05/16 14:45 (NovoLOG SUPPLEMENTAL SCALE) 1 Q6H SQ 10/05/16 17:00 (Protonix Inj) 40 mg Q24H IV PUSH 10/05/16 16:00 10/05/16 16:47 (Lasix) 40 mg DAILY PO 10/06/16 09:00 (Prinivil) 2.5 mg DAILY PO 10/06/16 09:00 (KCl) 10 meq Q12HR PO 10/05/16 21:00 Miscellaneous Information 1 Q361D XX 10/05/16 15:30 10/05/16 15:30 (Chlorhexidine 2% Cloth) 3 pack Taper DAILY@04 TOP 10/06/16 04:00 10/02/17 03:59 10/06/16 00:18 (Chlorhexidine 2% Cloth) 3 pack UNSCH PRN TOP 10/05/16 15:30 Allergies Allergies Coded Allergies No Known Allergies (Verified12/27/08) Exam I&O / VS 10/05/16 10/05/16 10/06/16 15:00 23:00 07:00 Intake Total 480 ml 970 ml Output Total 300 ml Balance 480 ml 670 ml Intake Oral 480 ml IV Total 970 ml Output Urine Total 300 ml # Voids 3 2 # Bowel Movements 1 Vital Signs Date Time Temp Pulse Resp B/P Pulse Ox O2 Delivery O2 Flow Rate FiO2 10/06/16 10:00 70 10/06/16 08:00 66 10/06/16 08:00 99.4 61 19 175/79 97 10/06/16 06:00 68 10/06/16 04:00 78 10/06/16 04:00 97.6 78 18 178/83 98 10/06/16 02:00 69 10/06/16 00:00 64 10/06/16 00:00 98.6 64 16 184/77 99 10/05/16 22:00 64 10/05/16 20:55 95 Nasal Cannula 2.00 10/05/16 20:00 64 10/05/16 20:00 98.9 64 14 183/79 98 10/05/16 18:00 71 10/05/16 16:00 99.0 63 16 155/81 98 10/05/16 16:00 63 10/05/16 14:12 69 10/05/16 13:48 92 Nasal Cannula 2.00 10/05/16 13:48 92 2.00 10/05/16 12:00 95.4 67 17 138/64 96 Objective Micro and Labs Laboratory Tests Test 10/05/16 10/05/16 10/05/16 10/06/16 13:15 13:45 14:20 04:54 White Blood Count 7.9 7.6 Red Blood Count 3.74 3.22 Hemoglobin 11.7 11.2 Bedside Hemoglobin 11.6 Hematocrit 34.8 31.9 Bedside Hematocrit 34.0 Mean Corpuscular Volume 92.9 99.1 Mean Corpuscular Hemoglobin 31.2 34.7 Mean Corpuscular Hemoglobin 33.6 35.0 Concent Red Cell Distribution Width 14.3 14.2 Platelet Count 180 162 Mean Platelet Volume 10.0 9.2 Neutrophils (%) (Auto) 78.0 76.5 Lymphocytes (%) (Auto) 9.5 10.6 Monocytes (%) (Auto) 10.4 10.5 Eosinophils (%) (Auto) 1.6 2.2 Basophils (%) (Auto) 0.5 0.2 Neutrophils # (Auto) 6.2 5.8 Lymphocytes # (Auto) 0.7 0.8 Monocytes # (Auto) 0.8 0.8 Eosinophils # (Auto) 0.1 0.2 Basophils # (Auto) 0.0 0.0 CBC Comment AUTO DIFF DIFF FINAL Differential Comment AUTO DIFF CONFIRMED Platelet Estimate NORMAL Platelet Morphology Comment NORMAL Ovalocytes 1+ Prothrombin Time 11.6 Prothromb Time International 1.0 Ratio Activated Partial 27.1 Thromboplast Time Bedside Sodium 143 Bedside Potassium 4.1 Bedside Chloride 107 Bedside Blood Urea Nitrogen 56 Bedside Creatinine 1.6 Bedside Glucose 110 Total Creatine Kinase 236 Troponin I 0.26 Blood Gas Puncture Site RT RADIAL Blood Gas Patient Temperature 98.6 Blood Gas HCO3 23 Blood Gas Base Excess -0.5 Blood Gas Oxygen Saturation 94 Arterial Blood pH 7.47 Arterial Blood Partial 32 Pressure CO2 Arterial Blood Partial 75 Pressure O2 Arterial Blood Oxygen Content 14.7 Arterial Blood 1.3 Carboxyhemoglobin Arterial Blood Methemoglobin 0.7 Blood Gas Hemoglobin 11.2 Oxygen Delivery Device NASAL CANNULA Blood Gas Liter Flow 2 Nasal Screen MRSA (PCR) MRSA NOT DETECTED Sodium Level 144 Potassium Level 3.8 Chloride Level 111 Carbon Dioxide Level 22.4 Anion Gap 11 Blood Urea Nitrogen 52 Creatinine 1.65 Estimat Glomerular Filtration 39 Rate Random Glucose 103 Calcium Level 8.6 Magnesium Level 2.4 Total Bilirubin 0.8 Aspartate Amino Transf 154 (AST/SGOT) Alanine Aminotransferase 132 (ALT/SGPT) Alkaline Phosphatase 124 Total Protein 6.6 Albumin 2.7 Triglycerides Level 93 Cholesterol Level 132 LDL Cholesterol 70 HDL Cholesterol 43.4 Cholesterol/HDL Ratio 3.04 Ivan Agustin MD Oct 06, 2016 11:21
[2016-10-06 13:18] LABS: HEMOGLOBIN A1a 1.9 %; HEMOGLOBIN A1b 1.9 %; HEMOGLOBIN Ao 82.7 %; HEMOGLOBIN P3 6.5 %
--- NOTE | 2016-10-06 17:51 | EKG ---
Date Performed: 10/05/2016 Time Performed: 13:20:55 PTAGE: 89 years EKG: ATRIAL FIBRILLATION WITH SLOW VENTRICULAR RESPONSE WITH ABERRANT CONDUCTION OR VENTRICULAR PREMATURE COMPLEXES MARKED LEFT AXIS DEVIATION RIGHT BUNDLE BRANCH BLOCK VOLTAGE CRITERIA FOR LVH Poo r R wave progression Prolonged QT interval MODERATE T-WAVE ABNORMALITY, CONSIDER LATERAL ISCHEMIA ABN ORMAL ECG PREVIOUS TRACING : 10/04/2016 04.57 DOCTOR: Pacheco Gonzalez Interpretating Date/Time 10/06/2016 17:49:11
[2016-10-06 21:45] LABS: HEMOGLOBIN A1a 1.3 %; HEMOGLOBIN A1b 1.9 %; HEMOGLOBIN Ao 82.3 %; HEMOGLOBIN LA1C 2.4 %; HEMOGLOBIN P3 6.8 %
--- NOTE | 2016-10-07 11:01 | HHI.DS ---
Discharge Summary Admission Date Oct 03, 2016 at 18:14 Discharge Date: Oct 06, 2016 Admitting Diagnosis CVA/right sided weakness and aphasia/stroke alert (1) Stroke Diagnosis: Principal Plan: Patient was originally admitted for a CVA to the left medial frontal lobe. While in the hospital on aspirin, Plavix, and Eliquis patient had a repeat ischemic stroke to the right cerebral hemisphere. Since then he has been nonresponsive. * Hospice consulted, patient is being discharged to hospice care * Patient is now DNR * Continue aspirin and Apixaban * Start comfort care per hospice recommendations (2) CHF (congestive heart failure) Diagnosis: Secondary Plan: Recently admitted for CHF exacerbation where he was found to have an EF of 25-30%. Cardiology evaluation during that time stated that pt was a poor ICD candidate. -Resume Lisinopril, Lasix, and KCL (3) Elevated troponin Diagnosis: Secondary Plan: Elevated troponin was found on last admission on 09/30. Attributed secondary to CHF and CKD. Additionally patient declined ischemic workup at that time. Troponin was elevated to high of 1.96. RBBB present on prior EKG -Troponin trending down 0.73 on admission to 0.57 (4) A-fib Diagnosis: Secondary Plan: Rate controlled with metoprolol. HAS-BLED score of 3pts due to aspirin medication, age >65, and stroke. -Given episodes of bradycardia overnight, will decrease Metoprolol from 12.5mg to 6.25mg po daily. 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 Likely contributing to symptoms of anemia. H&H stable since last admission (6) Nutrition, metabolism, and development symptoms Diagnosis: Secondary Plan: Diet: Nothing by mouth Fluids: To be determined by hospice Electrolytes: unremarkable. DVT PPX: Eliquis GI PPX: Protonix IV Disposition: Discharged to hospice care [facility] Neu[facility] Cardiology Palliative care Hospice Brief History Mr Mott is an 89yo male with PMH significant for CHF, A. fib, HTN. Presented due to acute onset of right-sided weakness and difficulty with speech. Patient was discharged from the hospital at 11 AM. He was previously admitted on 09/30/16 due to SOB and altered mental status and found to have a CHF exacerbation that was treated with diuresis. He was also treated for pneumonia x a 3 day course. Per report from family, patient was discharged in stable condition and was very energetic and happy to be going home. He went home and took a nap at around 2:30 PM at which time he was reportedly seen as normal. He then was up at around 4:00 PM when his daughter saw him struggling to get out of bed. His daughter then saw that he had right-sided weakness of upper and lower extremity as well as difficulty with speech. -Patient is unable to provide any further detail of why he is here or what happened. However he does follow commands and is able to shake his head yes or no. Today he was able to speak his name and is able to take thickened liquids. He was moving his right arm and hand and was able to walk with PT today per his family. CBC/BMP: 10/06/16 0454 10/06/16 0454 Significant Findings Laboratory Tests Test 10/05/16 10/05/16 10/05/16 10/06/16 05:05 13:15 13:45 04:54 Red Blood Count 3.38 MIL/MM3 3.74 MIL/MM3 3.22 MIL/MM3 (4.50-5.90) (4.50-5.90) (4.50-5.90) Hemoglobin 11.4 GM/DL 11.7 GM/DL 11.2 GM/DL (13.0-17.0) (13.0-17.0) (13.0-17.0) Hematocrit 33.0 % 34.8 % 31.9 % (39.0-51.0) (39.0-51.0) (39.0-51.0) Chloride Level 108 MEQ/L 111 MEQ/L (98-107) (98-107) Blood Urea Nitrogen 55 MG/DL (7-18) 52 MG/DL (7-18) Creatinine 1.74 MG/DL 1.65 MG/DL (0.60-1.30) (0.60-1.30) Estimat Glomerular Filtration 37 ML/MIN (>89) 39 ML/MIN (>89) Rate Bedside Hemoglobin 11.6 G/DL (12.0-17.0) Bedside Hematocrit 34.0 % (38.0-51.0) Neutrophils (%) (Auto) 78.0 % 76.5 % (16.0-70.0) (16.0-70.0) Monocytes (%) (Auto) 10.4 % 10.5 % (0.0-8.0) (0.0-8.0) Lymphocytes # (Auto) 0.7 TH/MM3 0.8 TH/MM3 (1.0-4.8) (1.0-4.8) Ovalocytes 1+ (NORMAL) Bedside Blood Urea Nitrogen 56 MG/DL (8-26) Bedside Creatinine 1.6 MG/DL (0.8-1.3) Bedside Glucose 110 MG/DL (60-95) Troponin I 0.26 NG/ML (0.02-0.05) Hemoglobin A1c 6.1 % (4.3-6.0) Arterial Blood pH 7.47 (7.380-7.420) Arterial Blood Partial 32 mmHg (38-42) Pressure CO2 Blood Gas Hemoglobin 11.2 G/DL (12.0-16.0) Mean Corpuscular Hemoglobin 34.7 PG (27.0-34.0) Aspartate Amino Transf 154 U/L (15-37) (AST/SGOT) Alanine Aminotransferase 132 U/L (12-78) (ALT/SGPT) Alkaline Phosphatase 124 U/L (45-117) Albumin 2.7 GM/DL (3.4-5.0) Imaging Last Impressions Head CT 10/05/16 1321 Signed Impressions: Service Date/Time: Wednesday, October 05, 2016 13:33 - CONCLUSION: Subacute area of infarction and edema at the left medial frontal lobe. This was identified on the prior MRI examination. No other areas of mass effect/acute infarction are seen. No hemorrhage is seen. Vern Farnsworth MD Chest X-Ray 10/05/16 0000 Signed Impressions: Service Date/Time: Wednesday, October 05, 2016 14:22 - CONCLUSION: Cardiomegaly. The lungs are clear. Wilbur Ridley MD Carotid Artery Ultrasound 10/04/16 0000 Signed Impressions: Service Date/Time: Tuesday, October 04, 2016 20:01 - CONCLUSION: Bilateral plaque formation in the internal carotid arteries, with hemodynamic profile characteristic of less than 50%% stenosis. Wilbur Ridley MD Head Magnetic Resonance Angiography 10/03/16 0000 Signed Impressions: Service Date/Time: Monday, October 03, 2016 19:53 - CONCLUSION: No stenosis or aneurysm. Normal variants as described above. Dejuan Nielson MD Brain MRI 10/03/16 0000 Signed Impressions: Service Date/Time: Monday, October 03, 2016 19:53 - CONCLUSION: Acute infarct high left frontal lobe. No midline shift or mass effect. Cerebral atrophy and chronic ischemic small vessel vasculopathy Dejuan Nielson MD PE at Discharge GENERAL: This is a well-nourished, well-developed patient, in no apparent distress. Laying in bed. Unresponsive and unable to follow commands SKIN: UEs with diffuse ecchymosis. EYES: Eyes closed ENT: Nose without bleeding, purulent drainage. Airway patent. NECK:No JVD or lymphadenopathy. CARDIOVASCULAR: Well-perfused RESPIRATORY: No respiratory distress GASTROINTESTINAL: Abdomen soft, non-tender, nondistended. No hepato-splenomegaly , or palpable masses. No guarding. MUSCULOSKELETAL: Extremities without clubbing, cyanosis, or edema. No calf tenderness. Hospital Course 89 yo male previously highly functional with paroxysmal AFib not on anticoagulation, HTN, newly diagnosed with CHF 09/30 with EF of 25-30% admitted for acute CVA (right sided weakness worse in RLE than RUE, slurred speech, difficulty swallowing). MRI brain showing acute frontal infarct. Neurology consulted, not deemed tPA candidate. Started anticoagulation with Eliquis and antiplatelet therapy with ASA and Plavix. CHF medications continued, permissive HTN allowed by stroke protocol. Patient seemed to clinically improve however PM of hospital day 2 he developed lethargy and his neurologic condition worsened. Repeat exam by neurologist was suggestive of second stroke affecting left side. Family had meeting and determined that with poor prognosis for return to baseline function, patient's wishes were consistent with avoiding aggressive treatment. Hospice consulted and she was transferred to hospice on 10/06 Pt Condition on Discharge: Deteriorating Discharge Disposition: Hospice/ Home Discharge Instructions DIET: Follow Instructions for: As Tolerated, No Restrictions Speech Therapy-Diet Recommends: Soft, Lago Thickened Liquids Activities you can perform: Continue Bedrest Louann Maynard MD R1 Oct 07, 2016 11:01
== END 2016-10-06 12:30 | disposition hospice, inpatient (51) | DRG 64 ==
LOC: NEPE 17:14 → NEDA 18:14 → N06B 20:59 → N06A 10-04 21:37 → HIMW 10-05 14:15
PROVIDERS: ADMIT Family Medicine; ATTEND Family Medicine
DX: I63.9 Cerebral infarction, unspecified (principal); J18.9 Pneumonia, unspecified organism; I13.0 Hypertensive heart and chronic kidney disease with heart failure and stage 1 through stage 4 chronic kidney disease, or unspecified chronic kidney disease; I42.9 Cardiomyopathy, unspecified; R06.89 Other abnormalities of breathing; G81.94 Hemiplegia, unspecified affecting left nondominant side; I50.9 Heart failure, unspecified; I48.0 Paroxysmal atrial fibrillation; D46.9 Myelodysplastic syndrome, unspecified; R47.01 Aphasia; N18.9 Chronic kidney disease, unspecified; R74.8 Abnormal levels of other serum enzymes; Z98.41 Cataract extraction status, right eye; Z85.46 Personal history of malignant neoplasm of prostate; Z87.891 Personal history of nicotine dependence; Z66 Do not resuscitate
CPT/HCPCS: 36600; 70450; 70544; 70551; 71010; 80048; 80053; 80061; 80307; 81001; 82435; 82550; 82552; 82565; 82805; 82947; 82948; 83036; 83605; 83735; 84100; 84132; 84295; 84443; 84484; 84520; 85025; 85027; 85384; 85610; 85730; 86850; 86900; 86901; 87641; 93005; 93880; 94640; 94664; C9113; J0171; J0461; J7030; J7613; P9612